=== PATIENT | male | born 1965 | race Caucasian/White ===

== ENCOUNTER 2021-09-14 14:19 | Outpatient (REF) | payer BC, SELFPAY ==
[2021-09-14 16:38] LABS: Urine Cytology See Pathology rpt
== END 2021-09-14 14:20 | disposition home or self-care (01) ==
LOC: HO.LAB 14:19
DX: R31.9 Hematuria, unspecified (principal)
CPT/HCPCS: 88112

== ENCOUNTER → 2021-11-05 08:38 | Outpatient (BNVA) | payer OTHER, SELFPAY | PROVIDERS: PCP Internal Medicine; Visit Provider Physician Assistant | DX: S39.012A Strain of muscle, fascia and tendon of lower back, initial encounter (principal); S29.012A Strain of muscle and tendon of back wall of thorax, initial encounter; X50.0XXA Overexertion from strenuous movement or load, initial encounter | CPT/HCPCS: 99203 ==

== ENCOUNTER 2021-11-10 09:41 | Outpatient (REF) | payer BC, SELFPAY ==
--- NOTE | ~2021-11-10 | CT_ITS ---
EXAMINATION: CT ABDOMEN AND PELVIS WITHOUT AND WITH CONTRAST CLINICAL INFORMATION: Hematuria COMPARISON: None. TECHNIQUE: Noncontrast CT of the abdomen and pelvis is performed followed by split bolus contrast-enhanced images using 85 mL Omnipaque 350 contrast.? Postcontrast imaging is performed during the combined nephrogram and excretion phase. Sagittal and coronal reformatted images were obtained on the technologist's workstation for both the precontrast and postcontrast phases. This CT examination was performed using dose optimization techniques as appropriate, variously including the following: *Automated exposure control *Adjustment of mA and/or kV according to patient size (this includes techniques or standardized protocols for targeted exams where dose is matched to indication/reason for exam; i.e. extremities or head) *Use of iterative reconstruction technique DLP: 669 mGy-cm FINDINGS: LUNG BASES: The visualized lung bases are unremarkable. LIVER, GALLBLADDER, AND BILIARY TREE: The liver is low in attenuation suggestive of fatty infiltration. There is a 1 cm cyst in the right lobe of the liver near the caudate lobe axial image 22 series 8. There is a low-attenuation lesion in the lateral segment of the left lobe of the liver. This has peripheral puddling appearing enhancement on delayed urogram imaging and probably represents a hemangioma. This measures 1.3 cm axial image 15 series 8. The gallbladder is normal. There is no biliary duct dilatation. PANCREAS: Unremarkable. SPLEEN: Unremarkable. ADRENAL GLANDS: Unremarkable. KIDNEYS AND URETERS: The kidneys are normal in size, shape, and attenuation. No hydronephrosis, hydroureter, or calculi seen. The collecting systems and ureters are normal. No perinephric stranding. BLADDER: The bladder is normal. GASTROINTESTINAL TRACT: There is mild diverticulosis of the colon. The small and large bowel are otherwise unremarkable. The appendix is unremarkable. ABDOMINAL WALL: There is a small umbilical hernia containing fat. LYMPH NODES: There is shotty small bowel mesentery lymphadenopathy and fat stranding or yovany mesentery sign. This is a nonspecific finding. VASCULAR: Unremarkable. PELVIC VISCERA: Prostate gland is slightly prominent measuring 3.3 x 5.2 cm in AP and transverse dimension. OSSEUS STRUCTURES: There are degenerative changes of the hip joints and spine. There are T10 and L2 vertebral body hemangiomas. CT/CT urogram IMPRESSION: No cause of hematuria seen. Slightly enlarged prostate gland. Mild diverticulosis of the colon. Nonspecific small bowel yovany mesentery. Fatty infiltration of the liver, liver cyst and probable hemangioma.
[2021-11-10 11:12] LABS: Blood Urea Nitrogen 12 mg/dL (9-16); Estimated Glomerular Filt Rate > 60
[2021-11-10] MEDS: iohexoL 350 MG/ML 100 ML INFUS..BTL IV (12:02)
== END 2021-11-10 09:42 | disposition home or self-care (01) ==
LOC: HO.CT 09:41
PROVIDERS: PCP Internal Medicine
DX: R31.9 Hematuria, unspecified (principal)
CPT/HCPCS: 36415; 74178; 82565; 84520; Q9967

== ENCOUNTER → 2021-11-25 15:29 | Outpatient (BNVA) | payer OTHER, SELFPAY | PROVIDERS: PCP Internal Medicine; Visit Provider Physician Assistant | DX: S39.012A Strain of muscle, fascia and tendon of lower back, initial encounter (principal); S76.311A Strain of muscle, fascia and tendon of the posterior muscle group at thigh level, right thigh, initial encounter; X50.0XXA Overexertion from strenuous movement or load, initial encounter | CPT/HCPCS: 99214 ==

== ENCOUNTER → 2021-12-08 08:36 | Outpatient (BNVA) | payer OTHER, SELFPAY | PROVIDERS: PCP Internal Medicine; Visit Provider Internal Medicine | DX: S76.311D Strain of muscle, fascia and tendon of the posterior muscle group at thigh level, right thigh, subsequent encounter (principal); S39.012D Strain of muscle, fascia and tendon of lower back, subsequent encounter; X50.0XXD Overexertion from strenuous movement or load, subsequent encounter | CPT/HCPCS: 99213 ==

== ENCOUNTER → 2021-12-23 09:08 | Outpatient (BNVA) | payer OTHER, SELFPAY | PROVIDERS: PCP Internal Medicine; Visit Provider Physician Assistant | DX: S39.012D Strain of muscle, fascia and tendon of lower back, subsequent encounter (principal); S76.311D Strain of muscle, fascia and tendon of the posterior muscle group at thigh level, right thigh, subsequent encounter; X50.0XXD Overexertion from strenuous movement or load, subsequent encounter | CPT/HCPCS: 99213 ==

== ENCOUNTER → 2022-01-07 09:38 | Outpatient (BNVA) | payer OTHER, SELFPAY | PROVIDERS: PCP Internal Medicine; Visit Provider Physician Assistant | DX: S39.012D Strain of muscle, fascia and tendon of lower back, subsequent encounter (principal); S76.311D Strain of muscle, fascia and tendon of the posterior muscle group at thigh level, right thigh, subsequent encounter; X50.0XXD Overexertion from strenuous movement or load, subsequent encounter | CPT/HCPCS: 99213 ==

== ENCOUNTER → 2022-01-13 10:22 | Outpatient (BNVA) | payer OTHER, SELFPAY | PROVIDERS: PCP Internal Medicine; Visit Provider Physician Assistant | DX: S39.012D Strain of muscle, fascia and tendon of lower back, subsequent encounter (principal); S76.311D Strain of muscle, fascia and tendon of the posterior muscle group at thigh level, right thigh, subsequent encounter; X50.0XXD Overexertion from strenuous movement or load, subsequent encounter | CPT/HCPCS: 99213 ==

== ENCOUNTER 2022-01-18 07:18 | Outpatient (REF) | payer OTHER, SELFPAY ==
--- NOTE | ~2022-01-18 | MR_ITS ---
EXAMINATION: MR LUMBAR SPINE WITHOUT CONTRAST CLINICAL INFORMATION: Lifting injury, persistent pain COMPARISON: None TECHNIQUE: MRI of the lumbar spine was obtained using routine sequences without contrast. FINDINGS: Mild left convex curvature of the lumbar spine. No suspicious marrow signal or focal osseous lesion. L2 vertebral body hemangioma. The vertebral body heights are maintained. Disc desiccation and height loss at L5-S1.. The conus medullaris terminates at the level of L1-L2. The distal spinal cord is normal in appearance. The cauda equina nerve roots appear normal. No significant abnormalities of the paraspinal musculature.. Limited evaluation of the intra-abdominal structures without significant abnormalities. The abdominal aorta is of normal contour and caliber. Degenerative changes of the partially visualized sacroiliac joints, left greater than right. SPINAL LEVELS: T12-L1: No significant spinal canal or neural foraminal narrowing L1-L2: No significant spinal canal or neuroforaminal narrowing. L2-L3: No significant spinal canal or neuroforaminal narrowing. L3-L4: No significant spinal canal or neuroforaminal narrowing. Shallow disc bulge and mild facet arthropathy. L4-L5: No significant spinal canal or neuroforaminal narrowing. Shallow disc bulge and mild facet arthropathy. L5-S1: Central disc protrusion with annular fissure narrows the bilateral subarticular zones with likely mass effect on the traversing S1 nerve roots. Mild facet arthropathy. No significant spinal canal or neural foraminal narrowing MR/MR lumbar spine wo con IMPRESSION: 1. At L5-S1, there is a central disc protrusion with annular fissure which narrows the subarticular zones and likely exerts mass effect on the traversing S1 nerve roots. 2. Otherwise minimal degenerative changes of the lumbar spine at L3-L4 and L4-L5.
== END 2022-01-18 07:19 | disposition home or self-care (01) ==
LOC: HO.MRI 07:18
PROVIDERS: Visit Provider Internal Medicine
DX: M54.50 Low back pain, unspecified (principal)
CPT/HCPCS: 72148

== ENCOUNTER → 2022-01-18 08:23 | Outpatient (BNVA) | payer OTHER, SELFPAY | PROVIDERS: PCP Internal Medicine; Visit Provider Internal Medicine | DX: M54.50 Low back pain, unspecified (principal); R20.2 Paresthesia of skin | CPT/HCPCS: 99213 ==

== ENCOUNTER → 2022-01-27 09:55 | Outpatient (BNVA) | payer OTHER, SELFPAY | PROVIDERS: PCP Internal Medicine; Visit Provider Physician Assistant | DX: S39.012D Strain of muscle, fascia and tendon of lower back, subsequent encounter (principal); X50.0XXD Overexertion from strenuous movement or load, subsequent encounter; M53.87 Other specified dorsopathies, lumbosacral region | CPT/HCPCS: 99214 ==

== ENCOUNTER → 2022-02-03 10:01 | Outpatient (BNVA) | payer OTHER, SELFPAY | PROVIDERS: PCP Internal Medicine; Visit Provider Physician Assistant | DX: S39.012D Strain of muscle, fascia and tendon of lower back, subsequent encounter (principal); S76.011D Strain of muscle, fascia and tendon of right hip, subsequent encounter; S29.012D Strain of muscle and tendon of back wall of thorax, subsequent encounter; X58.XXXD Exposure to other specified factors, subsequent encounter | CPT/HCPCS: 99213 ==

== ENCOUNTER → 2022-02-17 09:25 | Outpatient (BNVA) | payer OTHER, SELFPAY | PROVIDERS: PCP Internal Medicine; Visit Provider Physician Assistant | DX: S39.012D Strain of muscle, fascia and tendon of lower back, subsequent encounter (principal); S76.311D Strain of muscle, fascia and tendon of the posterior muscle group at thigh level, right thigh, subsequent encounter; X50.0XXD Overexertion from strenuous movement or load, subsequent encounter | CPT/HCPCS: 99214 ==

== ENCOUNTER → 2022-02-25 09:21 | Outpatient (BNVA) | payer OTHER, SELFPAY | PROVIDERS: PCP Internal Medicine; Visit Provider Physician Assistant | DX: S39.012D Strain of muscle, fascia and tendon of lower back, subsequent encounter (principal); S29.012D Strain of muscle and tendon of back wall of thorax, subsequent encounter; X50.0XXD Overexertion from strenuous movement or load, subsequent encounter | CPT/HCPCS: 99214 ==

== ENCOUNTER → 2022-03-11 11:43 | Outpatient (BNVA) | payer OTHER, SELFPAY | PROVIDERS: PCP Internal Medicine; Visit Provider Physician Assistant | DX: M54.50 Low back pain, unspecified (principal); M54.17 Radiculopathy, lumbosacral region | CPT/HCPCS: 99213 ==

== ENCOUNTER → 2022-03-25 14:56 | Outpatient (BNVA) | payer OTHER, SELFPAY | PROVIDERS: PCP Internal Medicine; Visit Provider Nurse Practitioner Family | DX: M54.16 Radiculopathy, lumbar region (principal); M51.36 Other intervertebral disc degeneration, lumbar region; M51.27 Other intervertebral disc displacement, lumbosacral region; M47.816 Spondylosis without myelopathy or radiculopathy, lumbar region; M62.830 Muscle spasm of back; M25.551 Pain in right hip | CPT/HCPCS: 99202 ==

== ENCOUNTER 2022-03-26 13:08 | Outpatient (REF) | payer OTHER, SELFPAY ==
--- NOTE | ~2022-03-26 | XR_ITS ---
EXAMINATION: XR HIP, RIGHT CLINICAL INFORMATION: Pain in the right hip. COMPARISON: CT urogram 11/10/2021. TECHNIQUE: Two views of the right hip. FINDINGS: No evidence of fractures or subluxation. SI joints are symmetric. Pubic symphysis is maintained. 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 Pelvic phleboliths. No significant soft tissue abnormality. XR/XR hip RT w PEL1V IMPRESSION: 1. No acute fractures or subluxation. 2. 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
[2022-03-26 16:07] LABS: Anion Gap 15 (12-20); Blood Urea Nitrogen 11 mg/dL (9-16); Carbon Dioxide 27 mmol/L (22-29); Chloride 103 mmol/L (96-108); Estimated Glomerular Filt Rate > 60; Potassium 4.6 mmol/L (3.3-5.1); Sodium 140 mmol/L (135-145)
== END 2022-03-26 13:09 | disposition home or self-care (01) ==
LOC: HO.XRAY 13:08
PROVIDERS: PCP Internal Medicine; Visit Provider Nurse Practitioner Family
DX: Z01.818 Encounter for other preprocedural examination (principal); M25.551 Pain in right hip
CPT/HCPCS: 36415; 73502; 80051; 82565; 84520

== ENCOUNTER → 2022-04-02 09:02 | Outpatient (BNVA) | payer OTHER, SELFPAY | PROVIDERS: PCP Internal Medicine; Visit Provider Physician Assistant | DX: M54.50 Low back pain, unspecified (principal); M54.9 Dorsalgia, unspecified; M54.17 Radiculopathy, lumbosacral region | CPT/HCPCS: 99214 ==

== ENCOUNTER 2022-04-21 06:05 | Outpatient (REF) | payer OTHER, SELFPAY ==
--- NOTE | ~2022-04-21 | FL_ITS ---
EXAMINATION: XR FLUOROSCOPY WITH IMAGES CLINICAL INFORMATION: Radiculopathy lumbar region. COMPARISON: MRI lumbar spine of 01/18/2022. TECHNIQUE: Fluoroscopy Supervised By: Dr. Breezy Holguin. Fluoroscopy Time: 0.7 minutes. Cumulative Dose: 13 mGy. DAP: 1.68 Gycm2. Images: 4. FINDINGS: Images demonstrate needles placed just below the pedicles of L5 bilaterally with contrast in nerve sheath. FL/FL guidance in treatment room IMPRESSION: Intraoperative fluoroscopy for pain management procedure.
== END 2022-04-21 06:06 | disposition home or self-care (01) ==
LOC: CF 06:05
PROVIDERS: Visit Provider Internal Medicine
DX: M54.16 Radiculopathy, lumbar region (principal); M51.36 Other intervertebral disc degeneration, lumbar region
CPT/HCPCS: 64483; J1100

== ENCOUNTER → 2022-04-30 13:09 | Outpatient (BNVA) | payer OTHER, SELFPAY | PROVIDERS: PCP Internal Medicine; Visit Provider Physician Assistant | DX: M54.9 Dorsalgia, unspecified (principal); M54.50 Low back pain, unspecified; M54.17 Radiculopathy, lumbosacral region | CPT/HCPCS: 99213 ==

== ENCOUNTER → 2022-05-07 14:36 | Outpatient (BNVA) | payer OTHER, SELFPAY | PROVIDERS: PCP Internal Medicine; Visit Provider Nurse Practitioner Family | DX: Z13.89 Encounter for screening for other disorder (principal) ==

== ENCOUNTER → 2022-05-24 08:15 | Outpatient (BNVA) | payer OTHER, BC, SELFPAY | PROVIDERS: PCP Internal Medicine; Visit Provider Nurse Practitioner Family | DX: M25.551 Pain in right hip (principal); M62.830 Muscle spasm of back; M47.816 Spondylosis without myelopathy or radiculopathy, lumbar region; M51.27 Other intervertebral disc displacement, lumbosacral region | CPT/HCPCS: 99212 ==

== ENCOUNTER → 2022-05-26 09:31 | Outpatient (BNVA) | payer OTHER, SELFPAY | PROVIDERS: PCP Internal Medicine; Visit Provider Physician Assistant | DX: M54.50 Low back pain, unspecified (principal); M54.2 Cervicalgia; M25.551 Pain in right hip | CPT/HCPCS: 99214 ==

== ENCOUNTER → 2022-06-02 11:17 | Outpatient (BNVA) | payer OTHER, SELFPAY | PROVIDERS: PCP Internal Medicine; Visit Provider Physician Assistant | DX: M54.50 Low back pain, unspecified (principal); M54.2 Cervicalgia; M25.551 Pain in right hip | CPT/HCPCS: 99214 ==

== ENCOUNTER → 2022-06-18 11:31 | Outpatient (BNVA) | payer BC, SELFPAY | PROVIDERS: PCP Internal Medicine; Visit Provider Urology | DX: Z13.89 Encounter for screening for other disorder (principal) ==

== ENCOUNTER 2022-06-21 14:02 | Outpatient (REF) | payer BC, SELFPAY ==
[2022-06-21 14:14] LABS: Appearance Urine Clear; Color Urine Yellow; Glucose Urine UA Negative (Negative); Leukocyte Esterase Urine Negative (Negative); Nitrite Urine Negative (Negative); Specific Gravity - Urine <= 1.005 (1.005-1.025); Urine Blood Negative (Negative); Urine Ketones Negative (Negative); Urine Protein Negative (Neg-Trace)
== END 2022-06-21 14:03 | disposition home or self-care (01) ==
LOC: HO.LNP 14:02
PROVIDERS: Visit Provider Urology
DX: R31.29 Other microscopic hematuria (principal)
CPT/HCPCS: 81003

== ENCOUNTER 2022-06-22 05:57 | Outpatient (REF) | payer BC, SELFPAY ==
--- NOTE | ~2022-06-22 | FL_ITS ---
EXAMINATION: XR FLUOROSCOPY WITH IMAGES CLINICAL INFORMATION: M25.551 - Pain in right hip COMPARISON: Pelvis and right hip radiographs 03/26/2022 TECHNIQUE: Fluoroscopy Supervised By: Dr. Derek Luis. Fluoroscopy Time: 12 seconds. Cumulative Dose: 5.86 mGy. Images: 1. FINDINGS: There is spinal needle with tip overlying the superior lateral right hip joint. Intracapsular contrast is demonstrated. No visible vascular communication. There are degenerative changes hip joint. FL/FL guidance in treatment room IMPRESSION: Fluoroscopy for pain management procedure.
== END 2022-06-22 05:58 | disposition home or self-care (01) ==
LOC: CF 05:57
PROVIDERS: Visit Provider Anesthesiology
DX: M25.551 Pain in right hip (principal); M62.830 Muscle spasm of back; M47.816 Spondylosis without myelopathy or radiculopathy, lumbar region; M51.27 Other intervertebral disc displacement, lumbosacral region
CPT/HCPCS: 20610; J2795; J3301; Q9967

== ENCOUNTER → 2022-06-25 08:58 | Outpatient (BNVA) | payer OTHER, SELFPAY | PROVIDERS: PCP Internal Medicine; Visit Provider Physician Assistant | DX: M54.50 Low back pain, unspecified (principal); M54.2 Cervicalgia; M25.551 Pain in right hip | CPT/HCPCS: 99214 ==

== ENCOUNTER → 2022-07-20 09:30 | Outpatient (BNVA) | payer OTHER, SELFPAY | PROVIDERS: PCP Internal Medicine; Visit Provider Nurse Practitioner Family | DX: M25.551 Pain in right hip (principal); M62.830 Muscle spasm of back; M47.816 Spondylosis without myelopathy or radiculopathy, lumbar region; M51.27 Other intervertebral disc displacement, lumbosacral region; M54.16 Radiculopathy, lumbar region; M53.3 Sacrococcygeal disorders, not elsewhere classified | CPT/HCPCS: 99212 ==

== ENCOUNTER → 2022-08-04 09:56 | Outpatient (BNVA) | payer OTHER, SELFPAY | PROVIDERS: PCP Internal Medicine; Visit Provider Physician Assistant | DX: M54.50 Low back pain, unspecified (principal); M54.2 Cervicalgia; M25.551 Pain in right hip | CPT/HCPCS: 99213 ==

== ENCOUNTER 2022-08-10 06:00 | Outpatient (REF) | payer OTHER, SELFPAY ==
--- NOTE | ~2022-08-10 | FL_ITS ---
EXAMINATION: XR FLUOROSCOPY WITH IMAGES CLINICAL INFORMATION: Sacrococcygeal disorders, not elsewhere classified COMPARISON: None available. TECHNIQUE: Fluoroscopy Supervised By: Dr. Derek Luis. Fluoroscopy Time: 0.1 min. Cumulative Dose: 1.28 mGy. DAP: 0.0222 Gycm2. Images: 1. FINDINGS: Image demonstrates needle placement and contrast injection of the right sacroiliac joint FL/FL guidance in treatment room IMPRESSION: Fluoroscopy guidance for right sacroiliac joint injection
== END 2022-08-10 06:01 | disposition home or self-care (01) ==
LOC: CF 06:00
PROVIDERS: Visit Provider Anesthesiology
DX: M53.3 Sacrococcygeal disorders, not elsewhere classified (principal); M47.816 Spondylosis without myelopathy or radiculopathy, lumbar region; M51.27 Other intervertebral disc displacement, lumbosacral region; M54.16 Radiculopathy, lumbar region; M62.830 Muscle spasm of back; M25.551 Pain in right hip
CPT/HCPCS: 27096

== ENCOUNTER → 2022-08-12 10:29 | Outpatient (BNVA) | payer OTHER, SELFPAY | PROVIDERS: PCP Internal Medicine; Visit Provider Nurse Practitioner Family | DX: M53.3 Sacrococcygeal disorders, not elsewhere classified (principal); M47.26 Other spondylosis with radiculopathy, lumbar region; M51.36 Other intervertebral disc degeneration, lumbar region; M51.27 Other intervertebral disc displacement, lumbosacral region; M62.830 Muscle spasm of back | CPT/HCPCS: 99212 ==

== ENCOUNTER → 2022-08-16 11:21 | Outpatient (BNVA) | payer OTHER, BC, SELFPAY | PROVIDERS: PCP Internal Medicine; Visit Provider Physician Assistant | DX: M54.16 Radiculopathy, lumbar region (principal) | CPT/HCPCS: 99202 ==

== ENCOUNTER 2022-08-25 16:20 | Outpatient (REF) | payer OTHER, BC, SELFPAY ==
--- NOTE | ~2022-08-25 | MR_ITS ---
EXAMINATION: MR LUMBAR SPINE WITHOUT CONTRAST CLINICAL INFORMATION: Lumbar radiculopathy. COMPARISON: Lumbar spine MRI 01/18/2022. TECHNIQUE: MRI of the lumbar spine was obtained using routine sequences without contrast. FINDINGS: There is slight grade 1 retrolisthesis of L5 on S1. Alignment is otherwise normal. Vertebral heights are preserved. No acute bone marrow signal changes. There is slight loss of intervertebral disc height and T2 signal intensity at L5-S1 related to disc degeneration. The tip of the conus medullaris is located at L1. No mass effect on the conus. Visualized distal cord signal intensity is normal. At L1-L2, L2-L3, L3-L4, and L4-5 the annular contours are normal. No canal or neuroforaminal compromise at these 4 levels. At L5-S1 there is a broad shallow central protrusion superimposed upon a bulging disc. No canal stenosis. No mass effect on the traversing or foraminal nerve roots. Limited visualization of the retroperitoneal anatomy reveals no abnormal finding. Psoas and paraspinal muscle groups are symmetric. MR/MR lumbar spine wo con IMPRESSION: There is a broad shallow central protrusion at L5-S1. Otherwise unremarkable examination. No canal stenosis. No mass effect on the traversing or foraminal nerve roots.
== END 2022-08-25 16:21 | disposition home or self-care (01) ==
LOC: HO.MRI 16:20
PROVIDERS: PCP Internal Medicine; Visit Provider Physician Assistant
DX: M54.16 Radiculopathy, lumbar region (principal)
CPT/HCPCS: 72148

== ENCOUNTER → 2022-09-09 15:15 | Outpatient (BNVA) | payer OTHER, SELFPAY | PROVIDERS: PCP Internal Medicine; Visit Provider Physician Assistant | DX: M54.50 Low back pain, unspecified (principal); M54.2 Cervicalgia; M25.551 Pain in right hip | CPT/HCPCS: 99213 ==

== ENCOUNTER 2022-10-05 15:35 | Outpatient (AMB) | payer OTHER, SELFPAY ==
--- NOTE | 2022-10-05 15:37 | MHC.OFFVIS ---
Intake Vital Signs 10/05/22 15:38 Height 6 ft 1 in Weight 196 lb BMI 25.9 BP 125/87 Blood Pressure Location Lt brachial Position Sitting Respiration 14 Pulse 83 Pulse Source Pulse Oximeter Pulse Oximetry (%) 98 Oxygen Delivery Method Room Air Intake Visit Reasons: Follow Up/Back Pain Allergies No Known Allergies Allergy (Verified 10/05/22 15:39) Medication List - Last Reconciled 10/05/22 by Melanie Lemos LPN atorvastatin 10 mg PO DAILY gabapentin 300 mg PO TID 30 days ibuprofen 800 mg PO TID HPI HPI Comments History of Present Illness Details Patient presents today for follow up for low back pain. He recently completed repeat lumbar spine MRI per [facility] and was deemed non surgical for back surgery. Patient reports ongoing right buttock pain worsened with prolonged sitting especially on hard surfaces and right leg pain in posterior and lateral distribution with intermittent numbness and tingling. He is trying to return to work but continues to experience daily pain that interferes with his ADLs, sleep and quality of life. Gabapentin has been well tolerated with partial and temporary alleviation of symptoms. Denies any bladder and bowel incontinence or saddle anesthesia. PRIOR: Patient presents today to assess response to Right Diagnostic Sacroiliac Joint Injection 08/10/[address] Luis. Patient reports 90% pain relief for the first 6 hours after procedure and ongoing 80% pain relief in the projection of right sacroiliac joint area. Patient reports he did not take gabapentin on the day of procedure. He felt some numbness down right leg, injection site tenderness, intermittent groin pain with sitting and tingling down left thigh. Patient also reports difficulty to sleep on his right side after injection as well as ongoing radicular right leg pain. Patient also reports tingling in his scrotal and distal and proximal adjacent areas. He denies any recent injury, inflammation, trauma or falls. Patient reports he regularly sees Urology provider, Dr. Grubbs but has not mention tingling in his scrotal areas. Patient is seeing Dr. Morales next Tuesday for evaluation of central disc protrusion with annular fissure at L5-S1 which narrows the subarticular zones and likely exerts mass effect on the traversing S1 nerve roots. Denies any fever, abdominal pain, bladder and bowel incontinence or saddle anesthesia. Past Procedures: 08/10/22: Right Diagnostic SIJ injection-90% for 6 hours, 80% ongoing pain relief 06/22/22: Right Hip Intra-articular steroid injection-80% ongoing pain relief 04/21/22: Bilateral L5-S1 TFESI-95% pain relief for first 24 hours, 70% 2 weeks PRIOR: Patient is a pleasant 57 years old male who presents today with lower back pain related to lifting injury on 11/03/21 by lifting a heavy rolled up mat. This is a work related injury and this is a Workers Comp case. 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 Patient has been initially evaluated at [facility] for upper back strain and completed 17 sessions of physical therapy with temporary improvement while performing PT. Patient reports his flexibility and partial range of motion has improved with PT but pain is still present and affects his daily activities, walking, standing, prolonged sitting, bending and sleeping. Patient reports worsening pain with sitting and sleeping for the past 2 weeks. His back is axial and also radiates into his right buttock and right lower extremity posteriorly with right leg and calf tightness, numbness and tingling in his toes. Reports same radiation of pain on the left intermittently in the past 2 weeks. Patient also reports right hip pain that radiates into his right groin. Pain is described as daily intermittent shooting, sharp, tugging, pulling, warming, tingling, dull, sore, hurting, aching, tiring, exhausting, fearful, frightful, punishing, spreading, radiating, tight and squeezing. Patient has been taking Ibuprofen 800 mg tid prn for 5 months since injury for pain. He also received oral steroids and cyclobenzaprine which has elevated some muscle stiffness in his legs. Patient denies previous back surgery or injections. Reports cervical surgery by Dr. Low in 2014, he believes C6-C7 level. Lumbar spine MRI on 01/18/22 showed a central disc protrusion with annular fissure at L5-S1 which narrows the subarticular zones and likely exerts mass effect on the traversing S1 nerve roots. Otherwise minimal degenerative changes of the lumbar spine at L3-L4 and L4-L5. Patient denies any fever, chills, weight loss, abdominal pain, bladder or bowel incontinence or saddle anesthesia. Reports right lower extremity weakness. [facility] Medical History Hematuria of unknown etiology Review of Systems Const All systems reviewed & are unremarkable except as noted in HPI and below Physical Exam Vital Signs: Last Vital Signs Pulse 83 10/05/22 15:38 Resp 14 10/05/22 15:38 BP 125/87 10/05/22 15:38 Pulse Ox 98 10/05/22 15:38 Oxygen Delivery Method Room Air 10/05/22 15:38 BMI result Body Mass Index 25.9 General: Appears afebrile. Alert and oriented. Mood and affect appropriate. Follows and participates in conversation appropriately. Respiratory effort is unlabored. No cough. Able to transition from sit to stand unassisted. Back/Spine/Pelvis Other: Lumbar extension does not reproduce pain. Lumbar flexion and bending reproduce mild to moderate discomfort. Demonstrates 5/5 strength of quadriceps bilaterally as well as flexion/dorsiflexion of bilateral feet against resistance. 2+ pedal pulses bilaterally. Straight leg rise with dorsiflexion positive on the right. +1 right +2 left patellar and +1 achilles reflexes bilaterally. Facet loading test positive bilaterally. No groin pain with I/E hip rotations on the right and radiation of pain into right anterior and lateral thigh. Mild lateral hip pain with external hip rotation on the left. Reports pain with numbness and tingling right buttock and hip. Back: back tenderness Cervical Spine: cervical ROM normal and No Cervical spine tenderness Thoracic/Lumbar Spine: thoracic and lumbar spine normal to inspection, No Thoracic/lumbar spine scar(s), Lasegue's sign positive on the right and localized, pain with thoraco-lumbar ROM, paraspinal muscle tenderness on the right greater than left, thoraco-lumbar ROM limited, No thoracic spinal tenderness and lumbar spinal tenderness (L4-S1) Pelvis: buttock tenderness on the right and sciatic notch tenderness on the right Sacroiliac joints: on the right (+Sahil's test) tender to palpation and on the left nontender Results Reviewed Results Reviewed: MR LUMBAR SPINE WITHOUT CONTRAST 08/25/22 COMPARISON: Lumbar spine MRI 01/18/2022 FINDINGS: There is slight grade 1 retrolisthesis of L5 on S1. Alignment is otherwise normal. Vertebral heights are preserved. No acute bone marrow signal changes. There is slight loss of intervertebral disc height and T2 signal intensity at L5-S1 related to disc degeneration. The tip of the conus medullaris is located at L1. No mass effect on the conus. Visualized distal cord signal intensity is normal. At L1-L2, L2-L3, L3-L4, and L4-5 the annular contours are normal. No canal or neuroforaminal compromise at these 4 levels. At L5-S1 there is a broad shallow central protrusion superimposed upon a bulging disc. No canal stenosis. No mass effect on the traversing or foraminal nerve roots. Limited visualization of the retroperitoneal anatomy reveals no abnormal finding. Psoas and paraspinal muscle groups are symmetric. IMPRESSION: There is a broad shallow central protrusion at L5-S1. Otherwise unremarkable examination. No canal stenosis. No mass effect on the traversing or foraminal nerve roots. MR LUMBAR SPINE WITHOUT CONTRAST 01/18/22 CLINICAL INFORMATION: Lifting injury, persistent pain FINDINGS: Mild left convex curvature of the lumbar spine. No suspicious marrow signal or focal osseous lesion. L2 vertebral body hemangioma. The vertebral body heights are maintained. Disc desiccation and height loss at L5-S1.. The conus medullaris terminates at the level of L1-L2. The distal spinal cord is normal in appearance. The cauda equina nerve roots appear normal. No significant abnormalities of the paraspinal musculature.. Limited evaluation of the intra-abdominal structures without significant abnormalities. The abdominal aorta is of normal contour and caliber. Degenerative changes of the partially visualized sacroiliac joints, left greater than right. SPINAL LEVELS: T12-L1: No significant spinal canal or neural foraminal narrowing L1-L2: No significant spinal canal or neuroforaminal narrowing. L2-L3: No significant spinal canal or neuroforaminal narrowing. L3-L4: No significant spinal canal or neuroforaminal narrowing. Shallow disc bulge and mild facet arthropathy. L4-L5: No significant spinal canal or neuroforaminal narrowing. Shallow disc bulge and mild facet arthropathy. L5-S1: Central disc protrusion with annular fissure narrows the bilateral subarticular zones with likely mass effect on the traversing S1 nerve roots. Mild facet arthropathy. No significant spinal canal or neural foraminal narrowing IMPRESSION: 1. At L5-S1, there is a central disc protrusion with annular fissure which narrows the subarticular zones and likely exerts mass effect on the traversing S1 nerve roots. 2. Otherwise minimal degenerative changes of the lumbar spine at L3-L4 and L4-L5. XR HIP, RIGHT 03/26/22 CLINICAL INFORMATION: Pain in the right hip. FINDINGS: No evidence of fractures or subluxation. SI joints are symmetric. Pubic symphysis is maintained. 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 Pelvic phleboliths. No significant soft tissue abnormality. IMPRESSION: 1. No acute fractures or subluxation. 2. 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 Assessment & Plan Assessment & Plan (1) Muscle spasm of back: Code(s): M62.830 - Muscle spasm of back (2) Lumbar spondylosis: Code(s): M47.816 - Spondylosis without myelopathy or radiculopathy, lumbar region (3) Protrusion of intervertebral disc of lumbosacral region: Code(s): M51.27 - Other intervertebral disc displacement, lumbosacral region (4) Lumbar radiculopathy: Code(s): M54.16 - Radiculopathy, lumbar region (5) Sacroiliac joint pain: Code(s): M53.3 - Sacrococcygeal disorders, not elsewhere classified (6) Piriformis muscle pain: Code(s): M79.18 - Myalgia, other site Plan Schedule Diagnostic Right Piriformis Muscle Injection with local and fluoroscopy for ongoing right buttock and right hip pain with associated numbness and tingling. Reports right buttock pain while sitting on hard surfaces. Right leg pain radiation is also posterior and lateral into his right foot. If no relief, will consider Right L5-S1 TFESI. All questions and concerns have been answered and patient agreed with the plan. Follow up after injections and sooner if needed. Justification for interventional therapy: ? Patient with average pain > 6/10 ? Patient has exhausted conservative therapy, NSAIDs, physical therapy The risks, consequences, alternatives, and benefits of various treatment options were discussed with the patient in great detail, including conservative management, injections and procedures. Coding Level of Care Code Est Pt Level 4 (78049) Diagnoses Muscle spasm of back M62.830 Lumbar spondylosis M47.816 Protrusion of intervertebral disc of lumbosacral region M51.27 Lumbar radiculopathy M54.16 Sacroiliac joint pain M53.3 Piriformis muscle pain M79.18
[2022-10-05 15:38] VITALS: BP 125/87; PULSE 83; RESP 14; O2SAT 98; BMI 25.9
== END 2022-10-05 15:59 | disposition home or self-care (01) ==
PROVIDERS: PCP Internal Medicine; Visit Provider Nurse Practitioner Family
DX: M62.830 Muscle spasm of back (principal); M47.816 Spondylosis without myelopathy or radiculopathy, lumbar region; M51.27 Other intervertebral disc displacement, lumbosacral region; M54.16 Radiculopathy, lumbar region; M53.3 Sacrococcygeal disorders, not elsewhere classified; M79.18 Myalgia, other site
CPT/HCPCS: 99214

== ENCOUNTER → 2022-10-05 15:35 | Outpatient (BNVA) | payer OTHER, SELFPAY | PROVIDERS: PCP Internal Medicine; Visit Provider Nurse Practitioner Family | DX: M47.26 Other spondylosis with radiculopathy, lumbar region (principal); M51.27 Other intervertebral disc displacement, lumbosacral region; M53.3 Sacrococcygeal disorders, not elsewhere classified; M62.830 Muscle spasm of back | CPT/HCPCS: 99212 ==

== ENCOUNTER 2022-10-21 13:51 | Outpatient (AMB) | payer OTHER, SELFPAY ==
--- NOTE | 2022-10-21 14:03 | A.OFFVIS_ITS ---
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 He reports increased back pain with right leg and right calf pain with intermittent numbn ess and tingling. Prolonged sitting, standing and walking will increase his symptoms. Patient has been using heat therapy, activity modifications, resting, gabapentin and took time off from work since Tuesday. He states his right buttock felt like he was sitting on a wallet but he was not. Prolonged sitting continues to causes him significant discomfort as well as bending or lifting small objects. Right leg pain radiation is posterior and lateral into his right foot. Patient reports oral steroid medication in the past has alleviated his symptoms and he requests refill for this. His piriformis injection was not approved by insurance. We will proceed with Right L5-S1 TFESI to alleviate his symptoms. Denies any recent cough, cold, infection, fever or other significant changes in medical history since last office visit. Patient denies any bladder or bowel incontinence or saddle anesthesia. Pain is rated at 3-4/10 at rest and increased to 6-7/10 with activity and movements. PRIOR: Patient presents today for follow up for low back pain. He recently completed repeat lumbar spine MRI per [facility] and was deemed non surgical for back surgery. Patient reports ongoing right buttock pain worsened with prolonged sitting especially on hard surfaces and right leg pain in posterior and lateral distribution with intermittent numbness and tingling. He is trying to return to work but continues to experience daily pain that interferes with his ADLs, sleep and quality of life. Gabapentin has been well tolerated with partial and temporary alleviation of symptoms. Denies any bladder and bowel incontinence or saddle anesthesia. PRIOR: Patient presents today to assess response to Right Diagnostic Sacroiliac Joint Injection 08/10/[address] Luis. Patient reports 90% pain relief for the first 6 hours after procedure and ongoing 80% pain relief in the projection of right sacroiliac joint area. Patient reports he did not take gabapentin on the day of procedure. He felt some numbness down right leg, injection site tenderness, intermittent groin pain with sitting and tingling down left thigh. Patient also reports difficulty to sleep on his right side after injection as well as ongoing radicular right leg pain. Patient also reports tingling in his scrotal and distal and proximal adjacent areas. He denies any recent injury, inflammation, trauma or falls. Patient reports he regularly sees Urology provider, Dr. Grubbs but has not mention tingling in his scrotal areas. Patient is seeing Dr. Morales next Tuesday for evaluation of central disc protrusion with annular fissure at L5-S1 which narrows the subarticular zones and likely exerts mass effect on the traversing S1 nerve roots. Denies any fever, abdominal pain, bladder and bowel incontinence or saddle anesthesia. Past Procedures: 08/10/22: Right Diagnostic SIJ injection-90% for 6 hours, 80% ongoing pain relief 06/22/22: Right Hip Intra-articular steroid injection-80% ongoing pain relief 04/21/22: Bilateral L5-S1 TFESI-95% pain relief for first 24 hours, 70% 2 weeks PRIOR: Patient is a pleasant 57 years old male who presents today with lower back pain related to lifting injury on 11/03/21 by lifting a heavy rolled up mat. This is a work related injury and this is a Workers Comp case. 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 Patient has been initially evaluated at [facility] for upper back strain and completed 17 sessions of physical therapy with temporary improvement while performing PT. Patient reports his flexibility and partial range of motion has improved with PT but pain is still present and affects his daily activities, walking, standing, prolonged sitting, bending and sleeping. Patient reports worsening pain with sitting and sleeping for the past 2 weeks. His back is axial and also radiates into his right buttock and right lower extremity posteriorly with right leg and calf tightness, numbness and tingling in his toes. Reports same radiation of pain on the left intermittently in the past 2 weeks. Patient also reports right hip pain that radiates into his right groin. Pain is described as daily intermittent shooting, sharp, tugging, pulling, warming, tingling, dull, sore, hurting, aching, tiring, exhausting, fearful, frightful, punishing, spreading, radiating, tight and squeezing. Patient has been taking Ibuprofen 800 mg tid prn for 5 months since injury for pain. He also received oral steroids and cyclobenzaprine which has elevated some muscle stiffness in his legs. Patient denies previous back surgery or injections. Reports cervical surgery by Dr. Low in 2013, he believes C6-C7 level. Lumbar spine MRI on 01/18/22 showed a central disc protrusion with annular fissure at L5-S1 which narrows the subarticular zones and likely exerts mass effect on the traversing S1 nerve roots. Otherwise minimal degenerative changes of the lumbar spine at L3-L4 and L4-L5. Patient denies any fever, chills, weight loss, abdominal pain, bladder or bowel incontinence or saddle anesthesia. Reports right lower extremity weakness. [facility] Medical History Hematuria of unknown etiology Review of Systems Const All systems reviewed & are unremarkable except as noted in HPI and below Physical Exam Vital Signs: Last Vital Signs Pulse 77 10/21/22 14:09 BP 135/93 H 10/21/22 14:09 Pulse Ox 99 10/21/22 14:09 Oxygen Delivery Method Room Air 10/21/22 14:09 BMI result Body Mass Index 25.2 General: Appears afebrile. Alert and oriented. Mood and affect appropriate. Fully engaged with exam. Follows and participates in conversation appropriately. Respiratory effort is unlabored. Able to transition from sit to stand unassisted. Back/Spine/Pelvis Other: Lumbar extension does reproduce mild pain. Lumbar flexion and bending reproduce moderate discomfort. Demonstrates 5/5 strength of quadriceps bilaterally as well as flexion/dorsiflexion of bilateral feet against resistance. 2+ pedal pulses bilaterally. Straight leg rise with dorsiflexion positive on the right, worse with dorsiflexion. +1 right +2 left patellar and +1 achilles reflexes bilaterally. Facet loading test positive bilaterally. No groin pain with I/E hip rotations on the right and radiation of pain into right anterior and lateral thigh. Slight lateral hip pain with external hip rotation on the left. Back: back tenderness Cervical Spine: cervical ROM normal, No Cervical spine tenderness and No step off deformity Thoracic/Lumbar Spine: thoracic and lumbar spine normal to inspection, No Thoracic/lumbar spine scar(s), Lasegue's sign positive on the right and localized, pain with thoraco-lumbar ROM, paraspinal muscle tenderness on the right greater than left, thoraco-lumbar ROM limited, No thoracic spinal tenderness, lumbar spinal tenderness (L4-S1) and straight leg raise positive right at 40 degrees Pelvis: buttock tenderness on the right and sciatic notch tenderness on the right Sacroiliac joints: on the right (+Sahil's test) tender to palpation and on the left nontender Assessment & Plan Assessment & Plan (1) Muscle spasm of back: Code(s): M62.830 - Muscle spasm of back (2) Lumbar spondylosis: Code(s): M47.816 - Spondylosis without myelopathy or radiculopathy, lumbar region (3) Protrusion of intervertebral disc of lumbosacral region: Code(s): M51.27 - Other intervertebral disc displacement, lumbosacral region (4) Lumbar radiculopathy: Code(s): M54.16 - Radiculopathy, lumbar region (5) Sacroiliac joint pain: Code(s): M53.3 - Sacrococcygeal disorders, not elsewhere classified (6) Piriformis muscle pain: Code(s): M79.18 - Myalgia, other site Plan Schedule Right L5-S1 TFESI injection with local and fluoroscopy for ongoing right sided radicular back and right leg pain. Script for Medrol John and muscle relaxant provided at patient's request while he awaits approval from insurance. All questions and concerns have been answered and patient agreed with the plan. Follow up after injections and sooner if needed. Justification for interventional therapy: ? Patient with average pain > 6/10 ? Patient has exhausted conservative therapy, NSAIDs, physical therapy The risks, consequences, alternatives, and benefits of various treatment options were discussed with the patient in great detail, including conservative management, injections and procedures. Patient was informed for hyperglycemic effects of steroids. Medications: New methylprednisolone (Medrol (John)) PO PER PKG DIR 21 ea 0RF cyclobenzaprine 5 mg PO BEDTIME 30 days PRN 30 tabs 0RF muscle spasm M25.551 - Pain in right hip, M47.816 - Spondylosis without myelopathy or radiculopathy, l umbar region, M51.27 - Other intervertebral disc displacement, lumbosacral region, M54.16 - Radiculopathy, lumbar region Coding Level of Care Code Est Pt Level 4 (03793) Diagnoses Muscle spasm of back M62.830 Lumbar spondylosis M47.816 Protrusion of intervertebral disc of lumbosacral region M51.27 Lumbar radiculopathy M54.16 Sacroiliac joint pain M53.3 Piriformis muscle pain M79.18
[2022-10-21 14:09] VITALS: BP 135/93; PULSE 77; O2SAT 99; BMI 25.2
== END 2022-10-21 14:42 | disposition home or self-care (01) ==
PROVIDERS: PCP Internal Medicine; Visit Provider Nurse Practitioner Family
DX: M62.830 Muscle spasm of back (principal); M47.816 Spondylosis without myelopathy or radiculopathy, lumbar region; M51.27 Other intervertebral disc displacement, lumbosacral region; M54.16 Radiculopathy, lumbar region; M53.3 Sacrococcygeal disorders, not elsewhere classified; M79.18 Myalgia, other site
CPT/HCPCS: 99214

== ENCOUNTER → 2022-10-21 13:51 | Outpatient (BNVA) | payer OTHER, SELFPAY | PROVIDERS: PCP Internal Medicine; Visit Provider Nurse Practitioner Family | DX: M62.830 Muscle spasm of back (principal); M47.26 Other spondylosis with radiculopathy, lumbar region; M51.27 Other intervertebral disc displacement, lumbosacral region; M53.3 Sacrococcygeal disorders, not elsewhere classified; M79.18 Myalgia, other site | CPT/HCPCS: 99212 ==

== ENCOUNTER → 2022-10-21 14:53 | Outpatient (BNVA) | payer OTHER, SELFPAY | PROVIDERS: PCP Internal Medicine; Visit Provider Internal Medicine | DX: M54.50 Low back pain, unspecified (principal) | CPT/HCPCS: 99213 ==

== ENCOUNTER 2022-11-16 06:15 | Outpatient (REF) | payer OTHER, SELFPAY ==
--- NOTE | ~2022-11-16 | FL_ITS ---
EXAMINATION: XR FLUOROSCOPY WITH IMAGES CLINICAL INFORMATION: Radiculopathy, lumbar region, right side. COMPARISON: None available. TECHNIQUE: Fluoroscopy Supervised By: Dr. Derek Luis. Fluoroscopy Time: 0.3 minutes. Cumulative Dose: 3.34 mGy. DAP: 0.0580 Gycm2. Images: 1. FINDINGS: Image demonstrates needle placement and contrast injection adjacent to the right lateral L5 vertebrae FL/FL guidance in treatment room IMPRESSION: Fluoroscopy guidance for pain management procedure
== END 2022-11-16 06:16 | disposition home or self-care (01) ==
LOC: CF 06:15
PROVIDERS: Visit Provider Anesthesiology
DX: M54.16 Radiculopathy, lumbar region (principal); M47.816 Spondylosis without myelopathy or radiculopathy, lumbar region
CPT/HCPCS: 64483; J3301

== ENCOUNTER 2022-11-16 10:27 | Outpatient (AMB) | payer OTHER, SELFPAY ==
[2022-11-16 10:42] VITALS: BP 122/88; PULSE 81; RESP 14; O2SAT 98; BMI 25.2
--- NOTE | 2022-11-16 10:42 | A.OFFVIS_ITS ---
Intake Vital Signs 11/16/22 10:42 11/16/22 11:28 Height 6 ft 1 in 6 ft 1 in Weight 191 lb 191 lb BMI 25.2 25.2 BP 122/88 120/90 H Blood Pressure Location Lt brachial Rt brachial Position Sitting Sitting Respiration 14 14 Pulse 81 73 Pulse Source Pulse Oximeter Pulse Oximeter Pulse Oximetry (%) 98 98 Oxygen Delivery Method Room Air Room Air Comment pre-op post-op Intake Visit Reasons: R L5-S1 TFESI/LOCAL Allergies No Known Allergies Allergy (Verified 11/16/22 10:42) [facility] Medical History Hematuria of unknown etiology Physical Exam Vital Signs: Last Vital Signs Pulse 73 11/16/22 11:28 Resp 14 11/16/22 11:28 BP 120/90 H 11/16/22 11:28 Pulse Ox 98 11/16/22 11:28 Oxygen Delivery Method Room Air 11/16/22 11:28 BMI result Body Mass Index 25.2 Assessment & Plan Assessment & Plan (1) Muscle spasm of back: Code(s): M62.830 - Muscle spasm of back (2) Lumbar spondylosis: Code(s): M47.816 - Spondylosis without myelopathy or radiculopathy, lumbar region (3) Protrusion of intervertebral disc of lumbosacral region: Code(s): M51.27 - Other intervertebral disc displacement, lumbosacral region (4) Lumbar radiculopathy: Code(s): M54.16 - Radiculopathy, lumbar region Plan: Right L5- S1 Transforaminal epidural steroid injection Informed consent was thoroughly explained to the patient before the procedure. The patient came to the operating room. She was positioned prone on operating table with a pillow under her abdomen. Time-out was performed delineating correct site and side of the procedure, nature of the injection, name and date of of the patient. The lower back of the patient was prepped with ChloraPrep and draped with st erile utility towels. C-arm was brought over the operating field and sq picture of L5 vertebra was demonstrated on the screen. The right side was chosen as the side of the injection. Tilting machine ipsilateral to the right at the level of L5 the most prominent picture of the right S1 superior articular process was obtained on the screen. At the projection of the lateral border of the SAP S1 to the skin small amount of lidocaine 1% 3-4 cc was injected to anesthetize the skin and s/q tissues. After that 5 in 22 gauge Quincke point needle was inserted through the skin wheal and was advanced to were the L5-S1 foramina on anterior posterior and oblique views intermittently.When needle tip contacted the bone the needle was deviated laterally and after that medially to advance it below the SAP and into the L5- S1 foramina. On lateral view the needle appeared to be at the lateral superior portion of the foramina. When tip of the needle entered foramina projection on AP view injection of the contrast was performed demonstrating epidural and perineural spread of the contrast. After that injection of the treatment medicine 2 cc of preservative-free lidocaine 1% mixed with Kenalog 40 mg was injected into the foramina. Injection of the contrast and injection of the treatment medicine was observed live on the screen. No intrathecal and no intravascular spread of the contrast was noted. The needle was removed and bandaid was applied the patient tolerated procedure well. (5) Sacroiliac joint pain: Code(s): M53.3 - Sacrococcygeal disorders, not elsewhere classified (6) Piriformis muscle pain: Code(s): M79.18 - Myalgia, other site Plan Schedule Right L5-S1 TFESI injection with local and fluoroscopy for ongoing right sided radicular back and right leg pain. Script for Medrol John and muscle relaxant provided at patient's request while he awaits approval from insurance. All questions and concerns have been answered and patient agreed with the plan. Follow up after injections and sooner if needed. Justification for interventional therapy: ? Patient with average pain > 6/10 ? Patient has exhausted conservative therapy, NSAIDs, physical therapy The risks, consequences, alternatives, and benefits of various treatment options were discussed with the patient in great detail, including conservative management, injections and procedures. Patient was informed for hyperglycemic effects of steroids. Orders: Orders FL guidance in treatment room Today M54.16 - Radiculopathy, lumbar region Coding Level of Care Code Procedure Only Diagnoses Muscle spasm of back M62.830 Lumbar spondylosis M47.816 Protrusion of intervertebral disc of lumbosacral region M51.27 Lumbar radiculopathy M54.16 Sacroiliac joint pain M53.3 Piriformis muscle pain M79.18
[2022-11-16 11:28] VITALS: BP 120/90; PULSE 73; RESP 14; O2SAT 98; BMI 25.2
== END 2022-11-16 11:15 | disposition home or self-care (01) ==
LOC: HO.PMCPRC 10:27
PROVIDERS: PCP Internal Medicine; Visit Provider Anesthesiology
DX: M47.26 Other spondylosis with radiculopathy, lumbar region (principal); M53.3 Sacrococcygeal disorders, not elsewhere classified; M51.27 Other intervertebral disc displacement, lumbosacral region
CPT/HCPCS: 64483

== ENCOUNTER → 2022-11-18 08:30 | Outpatient (BNVA) | payer OTHER, SELFPAY | PROVIDERS: PCP Internal Medicine; Visit Provider Nurse Practitioner Family ==

== ENCOUNTER 2022-11-22 10:26 | Outpatient (AMB) | payer OTHER, SELFPAY ==
--- NOTE | 2022-11-22 10:28 | A.OFFVIS_ITS ---
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 Patient reports symptoms started recently. He is able to particiapte in physical therapy exercises and feels pain has been improving in his back and right leg status post recent right L5-S1 TFESI on 11/16/22. Currently rates pain at 2/10. Echols's sign reproduces stretching in his posterior right thigh and no pain in right calf. Denies claudicating pain in his RLE or LLE. No tenderness on palpation of right calf. Patient will continue to monitor his symptoms and reach out to PCP or our office for any worsening of symptoms. Discussed low potassium and muscle cramps that can be associated with steroid injections especially if any electrolyte imbalances. Encouraged well balanced diet and adequate hydration. 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 He reports increased back pain with right leg and right calf pain with intermittent numbness and tingling. Prolonged sitting, standing and walking will increase his symptoms. Patient has been using heat therapy, activity modifications, resting, gabapentin and took time off from work since Tuesday. He states his right buttock felt like he was sitting on a wallet but he was not. Prolonged sitting continues to causes him significant discomfort as well as bending or lifting small objects. Right leg pain radiation is posterior and lateral into his right foot. Patient reports oral steroid medication in the past has alleviated his symptoms and he requests refill for this. His piriformis inj ection was not approved by insurance. We will proceed with Right L5-S1 TFESI to alleviate his symptoms. Denies any recent cough, cold, infection, fever or other significant changes in medical history since last office visit. Patient denies any bladder or bowel incontinence or saddle anesthesia. Pain is rated at 3-4/10 at rest and increased to 6-7/10 with activity and movements. PRIOR: Patient presents today for follow up for low back pain. He recently completed repeat lumbar spine MRI per [facility] and was deemed non surgical for back surgery. Patient reports ongoing right buttock pain worsened with prolonged sitting especially on hard surfaces and right leg pain in posterior and lateral distribution with intermittent numbness and tingling. He is trying to return to work but continues to experience daily pain that interferes with his ADLs, sleep and quality of life. Gabapentin has been well tolerated with partial and temporary alleviation of symptoms. Denies any bladder and bowel incontinence or saddle anesthesia. PRIOR: Patient presents today to assess response to Right Diagnostic Sacroiliac Joint Injection 08/10/[address] Luis. Patient reports 90% pain relief for the first 6 hours after procedure and ongoing 80% pain relief in the projection of right sacroiliac joint area. Patient reports he did not take gabapentin on the day of procedure. He felt some numbness down right leg, injection site tenderness, intermittent groin pain with sitting and tingling down left thigh. Patient also reports difficulty to sleep on his right side after injection as well as ongoing radicular right leg pain. Patient also reports tingling in his scrotal and distal and proximal adjacent areas. He denies any recent injury, inflammation, trauma or falls. Patient reports he regularly sees Urology provider, Dr. Grubbs but has not mention tingling in his scrotal areas. Patient is seeing Dr. Morales next Tuesday for evaluation of central disc protrusion with annular fissure at L5-S1 which narrows the subarticular zones and likely exerts mass effect on the traversing S1 nerve roots. Denies any fever, abdominal pain, bladder and bowel incontinence or saddle anesthesia. Past Procedures: 08/10/22: Right Diagnostic SIJ injection -90% for 6 hours, 80% ongoing pain relief 06/22/22: Right Hip Intra-articular ster oid injection-80% ongoing pain relief 04/21/22: Bilateral L5-S1 TFESI-95% pain relief for first 24 hours, 70% 2 weeks PRIOR: Patient is a pleasant 57 years old male who presents today with lower back pain related to lifting injury on 11/03/21 by lifting a heavy rolled up mat. This is a work related injury and this is a Workers Comp case. 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 Patient has been initially evaluated at [facility] for upper back strain and completed 17 sessions of physical therapy with temporary improvement while performing PT. Patient reports his flexibility and partial range of motion has improved with PT but pain is still present and affects his daily activities, walking, standing, prolonged sitting, bending and sleeping. Patient reports worsening pain with sitting and sleeping for the past 2 weeks. His back is axial and also radiates into his right buttock and right lower extremity posteriorly with right leg and calf tightness, numbness and tingling in his toes. Reports same radiation of pain on the left intermittently in the past 2 weeks. Patient also reports right hip pain that radiates into his right groin. Pain is described as daily intermittent shooting, sharp, tugging, pulling, warming, tingling, dull, sore, hurting, aching, tiring, exhausting, fearful, frightful, punishing, spreading, radiating, tight and squeezing. Patient has been taking Ibuprofen 800 mg tid prn for 5 months since injury for pain. He also received oral steroids and cyclobenzaprine which has elevated some muscle stiffness in his legs. Patient denies previous back surgery or injections. Reports cervical surgery by Dr. Low in 2013, he believes C6-C7 level. Lumbar spine MRI on 01/18/22 showed a central disc protrusion with annular fissure at L5-S1 which narrows the subarticular zones and likely exerts mass effect on the traversing S1 nerve roots. Otherwise minimal degenerative changes of the lumbar spine at L3-L4 and L4-L5. Patient denies any fever, chills, weight loss, abdo shawn pain, bladder or bowel incontinence or saddle anesthesia. Reports right lower extremity weakness. [facility] Medical History Hematuria of unknown etiology Review of Systems Const All systems reviewed & are unremarkable except as noted in HPI and below Physical Exam Vital Signs: Last Vital Signs Pulse 82 11/22/22 10:34 BP 138/92 H 11/22/22 10:34 Pulse Ox 98 11/22/22 10:34 Oxygen Delivery Method Room Air 11/22/22 10:34 BMI result Body Mass Index 25.1 General: Appears afebrile. Alert and oriented. Mood and affect appropriate. Follows and participates in conversation appropriately. Respiratory effort is unlabored. No cough. Able to transition from sit to stand unassisted. Ambulates with bilaterally normal heel strike and toe off. Back/Spine/Pelvis Thoracic/Lumbar Spine: thoraco-lumbar ROM normal, Lasegue's sign negative, straight leg raise negative bilaterally, No thoracic spinal tenderness and No lumbar spinal tenderness Pelvis: no buttock tenderness Extrem General: Yes capillary refill normal, Yes no joint enlargement, Yes no clubbing, cyanosis or edema, Yes no calf tenderness and Yes normal gait Right lower extremity: lower leg (Negative Hesham's sign.) Details: normal to inspection and no edema; no erythema, no tenderness, no localized swelling, no non-pitting edema, no ecchymosis and no unusual warmth Assessment & Plan Assessment & Plan (1) Tenderness of right calf: Code(s): M79.661 - Pain in right lower leg (2) Lumbar degenerative disc disease: Code(s): M51.36 - Other intervertebral disc degeneration, lumbar region (3) Lumbar radiculopathy: Code(s): M54.16 - Radiculopathy, lumbar region Plan Patient presents with normal RLE exam. He is status post right L5-S1 TFESI on 11/16/22 with good results so far for his right radicular leg pain. Pain is rated at 2/10 today. Patient will continue to monitor his symptoms and reach out to PCP or our office for any worsening of symptoms. Discussed low potassium and muscle cramps that can be associated with steroid injections especially if any recent electrolyte imbalances. Encouraged well balanced diet and adequate hydration. All questions and concerns have been answered and patient agreed with the plan. Follow up as needed. Coding Level of Care Code Est Pt Level 3 (59887) Diagnoses Tenderness of right calf M79.661 Lumbar degenerative disc disease M51.36 Lumbar radiculopathy M54.16
[2022-11-22 10:34] VITALS: BP 138/92; PULSE 82; O2SAT 98; BMI 25.1
== END 2022-11-22 10:39 | disposition home or self-care (01) ==
PROVIDERS: PCP Internal Medicine; Visit Provider Nurse Practitioner Family
DX: M51.36 Other intervertebral disc degeneration, lumbar region (principal); M54.16 Radiculopathy, lumbar region; M79.661 Pain in right lower leg
CPT/HCPCS: 99213

== ENCOUNTER → 2022-11-22 10:26 | Outpatient (BNVA) | payer OTHER, SELFPAY | PROVIDERS: PCP Internal Medicine; Visit Provider Nurse Practitioner Family | DX: M79.661 Pain in right lower leg (principal); M51.36 Other intervertebral disc degeneration, lumbar region; M54.16 Radiculopathy, lumbar region; Z98.890 Other specified postprocedural states | CPT/HCPCS: 99212 ==

== ENCOUNTER 2022-12-20 10:35 | Outpatient (AMB) | payer OTHER, SELFPAY ==
[2022-12-20 10:39] VITALS: BP 141/103; PULSE 81; O2SAT 96; BMI 25.2
--- NOTE | 2022-12-20 10:39 | A.OFFVIS_ITS ---
Intake Vital Signs 12/20/22 10:39 Height 6 ft 1 in Weight 191 lb BMI 25.2 BP 141/103 H Blood Pressure Location Rt brachial Position Sitting Pulse 81 Pulse Source Pulse Oximeter Pulse Oximetry (%) 96 Oxygen Delivery Method Room Air Intake Visit Reasons: R L5-S1 TFESI 11/16/22 Intake Note: Pain today 04/09 Cardiothoracic Icu Rn Required: No Accompanied by: Self / Same As Patient Allergies No Known Allergies Allergy (Verified 12/20/22 10:40) Medication List - Last Reconciled 12/20/22 by ALVIN Valdez atorvastatin 10 mg PO DAILY gabapentin 300 mg PO TID 30 days ibuprofen 800 mg PO TID HPI HPI Comments History of Present Illness Details Patient presents today to assess response to Right L5-S1 TFESI on 11/16/[address] Luis. Patient reports ongoing 60% pain relief since the procedure with partial improv ement in his functioning, mobility and sleep. He states his lower back and right leg pain has been flaring up more frequently and Ibuprofen with gabapentin provided him partial and minimal benefit. Patient continues to work daily with 10-lbs weight restriction. He continues to experience low back pain with lifting, bending, prolonged walking or standing, and increased right hip and groin pain with weight bearing. Coughing or sneezing do not aggravate his back or hip pain. I believe these are two separate pain generators for patient with overlapping symptoms. He had good response to right hip steroid injection with fluoroscopy guidance back in 06/22/22 as well as L5-S1 TFESI injection in March 2022 and more recently on 11/16/22. His back pain symptoms are related to work related injury on 11/03/21 from which he has not reached maximum improvement. Patient is interested in undergoing Orthopedic evaluation for ongoing right hip pain related to moderate degenerative osteoarthritis. Patient has pending EMG and NVC studies to further evaluate his lower extremity ongoing paresthesia components. Patient denies any bladder or bowel incontinence or saddle anesthesia. PRIOR: Patient presents today for follow up for right tightness in his right calf. Patient reports symptoms started recently. He is able to particiapte in physical therapy exercises and feels pain has been improving in his back and right leg status post recent right L5-S1 TFESI on 11/16/22. Currently rates pain at 2/10. Echols's sign reproduces stretching in his posterior right thigh and no pain in right calf. Denies claudicating pain in his RLE or LLE. No tenderness on palpation of right calf. Patient will continue to monitor his symptoms and reach out to PCP or our office for any worsening of symptoms. Discussed low potassium and muscle cramps that can be associated with steroid injections especially if any electrolyte imbalances. Encouraged well balanced diet and adequate hydration. 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 He reports increased back pain with right leg and right calf pain with intermittent numbness and tingling. Prolonged sitting, standing and walking will increase his symptoms. Patient has been using heat therapy, activity modifications, resting, gabapentin and took time off from work since Tuesday. He states his right buttock felt like he was sitting on a wallet but he was not. Prolonged sitting continues to causes him significant discomfort as well as bending or lifting small objects. Right leg pain radiation is posterior and lateral into his right foot. Patient reports oral steroid medication in the past has alleviated his symptoms and he requests refill for this. His piriformis injection was not approved by insurance. We will proceed with Right L5-S1 TFESI to alleviate his symptoms. Denies any recent cough, cold, infection, fever or other significant changes in medical history since last office visit. Patient denies any bladder or bowel incontinence or saddle anesthesia. Pain is rated at 3-4/10 at rest and increased to 6-7/10 with activity and movements. PRIOR: Patient presents today for follow up for low back pain. He recently completed repeat lumbar spine MRI per [facility] and was deemed non surgical for back surgery. Patient reports ongoing right buttock pain worsened with prolonged sitting especially on hard surfaces and right leg pain in posterior and lateral distribution with intermittent numbness and tingling. He is trying to return to work but continues to experience daily pain that interferes with his ADLs, sleep and quality of life. Gabapentin has been well tolerated with partial and temporary alleviation of symptoms. Denies any bladder and bowel incontinence or saddle anesthesia. PRIOR: Patient presents today to assess response to Right Diagnostic Sacroiliac Joint Injection 08/10/[address] Luis. Patient reports 90% pain relief for the first 6 hours after procedure and ongoing 80% pain relief in the projection of right sacroiliac joint area. Patient reports he did not take gabapentin on the day of procedure. He felt some numbness down right leg, injection site tenderness, intermittent groin pain with sitting and tingling down left thigh. Patient also reports difficulty to sleep on his right side after injection as well as ongoing radicular right leg pain. Patient also reports tingling in his scrotal and distal and proximal adjacent areas. He denies any recent injury, inflammation, trauma or falls. Patient reports he regularly sees Urology provider, Dr. Grubbs but has not mention tingling in his scrotal areas. Patient is seeing Dr. Morales next Tuesday for evaluation of central disc protrusion with annular fissure at L5-S1 which narrows the subarticular zones and likely exerts mass effect on the traversing S1 nerve roots. Denies any fever, abdominal pain, bladder and bowel incontinence or saddle anesthesia. Past Procedures: 08/10/22: Right Diagnostic SIJ injection -90% for 6 hours, 80% ongoing pain relief 06/22/22: Right Hip Intra-articular ster oid injection-80% ongoing pain relief 04/21/22: Bilateral L5-S1 TFESI-95% pain relief for first 24 hours, 70% 2 weeks PRIOR: Patient is a pleasant 57 years old male who presents today with lower back pain related to lifting injury on 11/03/21 by lifting a heavy rolled up mat. This is a work related injury and this is a Workers Comp case. 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 Patient has been initially evaluated at [facility] for upper back strain and completed 17 sessions of physical therapy with temporary improvement while performing PT. Patient reports his flexibility and partial range of motion has improved with PT but pain is still present and affects his daily activities, walking, standing, prolonged sitting, bending and sleeping. Patient reports worsening pain with sitting and sleeping for the past 2 weeks. His back is axial and also radiates into his right buttock and right lower extremity posteriorly with right leg and calf tightness, numbness and tingling in his toes. Reports same radiation of pain on the left intermittently in the past 2 weeks. Patient also reports right hip pain that radiates into his right groin. Pain is described as daily intermittent shooting, sharp, tugging, pulling, warming, tingling, dull, sore, hurting, aching, tiring, exhausting, fearful, frightful, punishing, spreading, radiating, tight and squeezing. Patient has been taking Ibuprofen 800 mg tid prn for 5 months since injury for pain. He also received oral steroids and cyclobenzaprine which has elevated some muscle stiffness in his legs. Patient denies previous back surgery or injections. Reports cervical surgery by Dr. Low in 2013, he believes C6-C7 level. Lumbar spine MRI on 01/18/22 showed a central disc protrusion with annular fissure at L5-S1 which narrows the subarticular zones and likely exerts mass effect on the traversing S1 nerve roots. Otherwise minimal degenerative changes of the lumbar spine at L3-L4 and L4-L5. Patient denies any fever, chills, weight loss, abdominal pain, bladder or bowel incontinence or saddle anesthesia. Reports right lower extremity weakness. [facility] Medical History Hematuria of unknown etiology Review of Systems Const All systems reviewed & are unremarkable except as noted in HPI and below ENT Reports Normal hearing present Neuro Reports Normal hearing present and Denies Sensory deficit (Neuro) Physical Exam Vital Signs: Last Vital Signs Pulse 81 12/20/22 10:39 BP 141/103 H 12/20/22 10:39 Pulse Ox 96 12/20/22 10:39 Oxygen Delivery Method Room Air 12/20/22 10:39 BMI result Body Mass Index 25.2 General: Appears afebrile. Alert and oriented. Mood and affect appropriate. Follows and participates in conversation appropriately. Respiratory effort is unlabored. No cough. Able to transition from sit to stand unassisted. Ambulates with bilaterally normal heel strike and toe off. Back/Spine/Pelvis Other: Lumbar extension does not reproduce pain. Lumbar flexion and bending increase lower back pain. SLR testing negative. Sahil's testing reproduce right hip and right groin pain but not low back pain. +Pelvic compression on the right. Reports right groin pain with I/E hip rotations. Reports RLE dysesthesia and paresthesia. No motor or sensory deficits bilaterally. Cervical Spine: cervical ROM normal and No Cervical spine tenderness Thoracic/Lumbar Spine: Lasegue's sign negative, straight leg raise negative bilaterally, No thoracic spinal tenderness and lumbar spinal tenderness (L4-S1) Pelvis: no buttock tenderness Sacroiliac joints: on the right nontender and on the left tender to palpation Neuro General: Normal light touch and pain sensation and no focal motor deficits Cranial nerves: Yes Normal hearing present Cognition (Neuro): normal cognition Gait exam (Neuro): Antalgic gait present (mild limping due to right groin pain) Motor exam (neuro): 5/5 motor strength present throughout and Motor abnormalities not present Sensory Exam: No Sensory deficit (Neuro) Extrem General: Yes capillary refill normal, Yes no clubbing, cyanosis or edema and Yes no calf tenderness Results Reviewed Results Reviewed: MR LUMBAR SPINE WITHOUT CONTRAST 08/25/22 COMPARISON: Lumbar spine MRI 01/18/2022 FINDINGS: There is slight grade 1 retrolisthesis of L5 on S1. Alignment is otherwise normal. Vertebral heights are preserved. No acute bone marrow signal changes. There is slight loss of intervertebral disc height and T2 signal intensity at L5-S1 related to disc degeneration. The tip of the conus medullaris is located at L1. No mass effect on the conus. Visualized distal cord signal intensity is normal. At L1-L2, L2-L3, L3-L4, and L4-5 the annular contours are normal. No canal or neuroforaminal compromise at these 4 levels. At L5-S1 there is a broad shallow central protrusion superimposed upon a bulging disc. No canal stenosis. No mass effect on the traversing or foraminal nerve roots. Limited visualization of the retroperitoneal anatomy reveals no abnormal finding. Psoas and paraspinal muscle groups are symmetric. IMPRESSION: There is a broad shallow central protrusion at L5-S1. Otherwise unremarkable examination. No canal stenosis. No mass effect on the traversing or foraminal nerve roots. MR LUMBAR SPINE WITHOUT CONTRAST 01/18/22 CLINICAL INFORMATION: Lifting injury, persistent pain FINDINGS: Mild left convex curvature of the lumbar spine. No suspicious marrow signal or focal osseous lesion. L2 vertebral body hemangioma. The vertebral body heights are maintained. Disc desiccation and height loss at L5-S1.. The conus medullaris terminates at the level of L1-L2. The distal spinal cord is normal in appearance. The cauda equina nerve roots appear normal. No significant abnormalities of the paraspinal musculature.. Limited evaluation of the intra-abdominal structures without significant abnormalities. The abdominal aorta is of normal contour and caliber. Degenerative changes of the partially visualized sacroiliac joints, left greater than right. SPINAL LEVELS: T12-L1: No significant spinal canal or neural foraminal narrowing L1-L2: No significant spinal canal or neuroforaminal narrowing. L2-L3: No significant spinal canal or neuroforaminal narrowing. L3-L4: No significant spinal canal or neuroforaminal narrowing. Shallow disc bulge and mild facet arthropathy. L4-L5: No significant spinal canal or neuroforaminal narrowing. Shallow disc bulge and mild facet arthropathy. L5-S1: Central disc protrusion with annular fissure narrows the bilateral subarticular zones with likely mass effect on the traversing S1 nerve roots. Mild facet arthropathy. No significant spinal canal or neural foraminal narrowing IMPRESSION: 1. At L5-S1, there is a central disc protrusion with annular fissure which narrows the subarticular zones and likely exerts mass effect on the traversing S1 nerve roots. 2. Otherwise minimal degenerative changes of the lumbar spine at L3-L4 and L4-L5. XR HIP, RIGHT 03/26/22 CLINICAL INFORMATION: Pain in the right hip. FINDINGS: No evidence of fractures or subluxation. SI joints are symmetric. Pubic symphysis is maintained. 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 Pelvic phleboliths. No significant soft tissue abnormality. IMPRESSION: 1. No acute fractures or subluxation. 2. 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 Assessment & Plan Assessment & Plan (1) Right hip pain: Code(s): M25.551 - Pain in right hip (2) Hip osteoarthritis: Code(s): M16.9 - Osteoarthritis of hip, unspecified (3) Paresthesia of right lower extremity: Code(s): R20.2 - Paresthesia of skin (4) Lumbar spondylosis: Code(s): M47.816 - Spondylosis without myelopathy or radiculopathy, lumbar region (5) Protrusion of intervertebral disc of lumbosacral region: Code(s): M51.27 - Other intervertebral disc displacement, lumbosacral region (6) Lumbar degenerative disc disease: Code(s): M51.36 - Other intervertebral disc degeneration, lumbar region Plan 1. Orthopedic Referral for ongoing right hip pain. Reports good results with right hip steroid injections 05/2022, which can be repeated as needed. 2. Pending EMG and NVC studies to further evaluation of RLE occasional numbness and tingling. He is able to continue to work with weight lifting restrictions, but works with the ongoing symptoms and has not yet reached maximum improvement. All questions and concerns have been answered and patient agreed with the plan. Follow up for Neurodiagnostic studies review and sooner if needed. Orders: Referrals Orthopedics Referral M16.9 - Osteoarthritis of hip, unspecified, M25.551 - Pain in right hip Coding Level of Care Code Est Pt Level 4 (09924) Diagnoses Right hip pain M25.551 Hip osteoarthritis M16.9 Paresthesia of right lower extremity R20.2 Lumbar spondylosis M47.816 Protrusion of intervertebral disc of lumbosacral region M51.27 Lumbar degenerative disc disease M51.36
== END 2022-12-20 10:58 | disposition home or self-care (01) ==
PROVIDERS: PCP Internal Medicine; Visit Provider Nurse Practitioner Family
DX: M25.551 Pain in right hip (principal); M16.9 Osteoarthritis of hip, unspecified; R20.2 Paresthesia of skin; M47.816 Spondylosis without myelopathy or radiculopathy, lumbar region; M51.27 Other intervertebral disc displacement, lumbosacral region; M51.36 Other intervertebral disc degeneration, lumbar region
CPT/HCPCS: 99213

== ENCOUNTER → 2022-12-20 10:35 | Outpatient (BNVA) | payer OTHER, SELFPAY | PROVIDERS: PCP Internal Medicine; Visit Provider Nurse Practitioner Family | DX: M25.551 Pain in right hip (principal); M16.9 Osteoarthritis of hip, unspecified; R20.2 Paresthesia of skin; M47.816 Spondylosis without myelopathy or radiculopathy, lumbar region; M51.27 Other intervertebral disc displacement, lumbosacral region; M51.36 Other intervertebral disc degeneration, lumbar region | CPT/HCPCS: 99212 ==

== ENCOUNTER 2022-12-23 10:13 | Outpatient (AMB) | payer OTHER, SELFPAY ==
--- NOTE | 2022-12-23 10:16 | A.OFFVIS_ITS ---
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 He reports he has lower back pain that occurred when he lifted a rug that he has been seeing pain management for. He has had injections in his back for this in October. He said his hip pain started a few months ago, he denies injury. 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 He also states he has groin pain. He is taking ibuprofen daily and gabapentin. Patient states that at times he has ?tingling sensation? which radiates down his right leg. He denies any weakness. He also reports intermittent right groin pain. Allergies No Known Allergies Allergy (Verified 12/23/22 10:17) Medication List - Last Reconciled 12/23/22 by Ana Rees RN atorvastatin 10 mg PO DAILY gabapentin 300 mg PO TID 30 days ibuprofen 800 mg PO TID [facility] Medical History Hematuria of unknown etiology Physical Exam Const Other: Well-nourished well-developed very friendly male awake alert and oriented x3 in no acute distress Extrem Other: Bilateral lower extremity examination shows good capillary refill, no skin lesions noted, normal sensation light touch Right hip examination shows full range of motion when compared to his left hip, minimal tenderness over his bursa, increased discomfort with forward flexion and internal rotation Results Reviewed Results Reviewed: X-rays of the patient's right hip show mild diffuse joint space narrowing, no acute bony abnormalities Assessment & Plan Assessment & Plan (1) Right hip pain: Code(s): M25.551 - Pain in right hip Plan Mr. 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 Thus, I will send the patient for an MRI of his right hip for further evaluation. I will see him back once the MRI is completed to discuss the findings and treatment options. Feel free to call me at any time should questions regarding his orthopedic management arise. I spent 22 minutes in reviewing the patient's records and imaging studies, seeing the patient and documenting in the medical record. Orders: Orders MR hip RT wo con Today M25.551 - Pain in right hip Coding Level of Care Code New Pt Level 2 (79461) Diagnoses Right hip pain M25.551
== END 2022-12-23 10:54 | disposition home or self-care (01) ==
PROVIDERS: PCP Internal Medicine; Visit Provider Orthopaedic Surgery
DX: M25.551 Pain in right hip (principal)
CPT/HCPCS: 99202

== ENCOUNTER → 2022-12-23 10:13 | Outpatient (BNVA) | payer OTHER, SELFPAY | PROVIDERS: PCP Internal Medicine; Visit Provider Orthopaedic Surgery | DX: M25.551 Pain in right hip (principal); M25.552 Pain in left hip | CPT/HCPCS: 99202 ==

== ENCOUNTER 2022-12-29 10:08 | Outpatient (REF) | payer BC, SELFPAY ==
--- NOTE | ~2022-12-29 | XR_ITS ---
EXAMINATION: XR KNEE, BILATERAL CLINICAL INFORMATION: Pain COMPARISON: None. TECHNIQUE: 4 views of each knee FINDINGS: RIGHT: No acute visible fracture or dislocation. Mild multicompartment arthritic changes. Mild narrowing of the medial femorotibial compartment. Laterally narrowing the lateral patellofemoral compartment. Enthesopathy at the quadriceps tendon insertion site. Joint spaces and alignment are otherwise maintained. Small knee joint effusion. Soft tissues are unremarkable. LEFT: No acute visible fracture or dislocation. Mild multicompartment arthritic changes. Mild narrowing of the medial femorotibial compartment. Laterally narrowing the lateral patellofemoral compartment. Enthesopathy at the quadriceps tendon insertion site and patellar tendon origination and insertion site. Joint spaces and alignment are otherwise maintained. Small knee joint effusion. Soft tissues are unremarkable. XR/XR knee LT 4V IMPRESSION: 1. No acute visible fracture or dislocation. 2. Bilateral mild to moderate multicompartment arthritic changes. 3. Small bilateral knee joint effusions.
--- NOTE | ~2022-12-29 | XR_ITS ---
EXAMINATION: XR KNEE, BILATERAL CLINICAL INFORMATION: Pain COMPARISON: None. TECHNIQUE: 4 views of each knee FINDINGS: RIGHT: No acute visible fracture or dislocation. Mild multicompartment arthritic changes. Mild narrowing of the medial femorotibial compartment. Laterally narrowing the lateral patellofemoral compartment. Enthesopathy at the quadriceps tendon insertion site. Joint spaces and alignment are otherwise maintained. Small knee joint effusion. Soft tissues are unremarkable. LEFT: No acute visible fracture or dislocation. Mild multicompartment arthritic changes. Mild narrowing of the medial femorotibial compartment. Laterally narrowing the lateral patellofemoral compartment. Enthesopathy at the quadriceps tendon insertion site and patellar tendon origination and insertion site. Joint spaces and alignment are otherwise maintained. Small knee joint effusion. Soft tissues are unremarkable. XR/XR knee RT 4V IMPRESSION: 1. No acute visible fracture or dislocation. 2. Bilateral mild to moderate multicompartment arthritic changes. 3. Small bilateral knee joint effusions.
== END 2022-12-29 10:09 | disposition home or self-care (01) ==
LOC: HO.HMGCX 10:08
PROVIDERS: PCP Internal Medicine; Visit Provider Internal Medicine
DX: M25.561 Pain in right knee (principal); M25.562 Pain in left knee
CPT/HCPCS: 73564

== ENCOUNTER 2022-12-30 13:38 | Outpatient (REF) | payer OTHER, SELFPAY ==
--- NOTE | 2022-12-30 13:41 | EMG_ITS ---
Chief complaint: Right groin and leg pain, with tingling on both feet Reason for referral: Evaluate for radiculopathy Referred by: Christin Reyes NP Procedure done: Right lower extremity NCS/EMG, comparison to left Precautions and/or limitations: None The limb temperature was monitored continuously and remained between 32-36 degrees C during the performance of the NCS. Nerve Conduction Studies Anti Sensory Summary Table ?Stim Site NR Onset (ms) Norm Onset (ms) Peak (ms) Norm Peak (ms) O-P Amp (?V) Norm O-P Amp Site1 Site2 Delta-0 (ms) Dist (cm) Zoltan (m/s) Norm Zoltan (m/s) Left Sural Anti Sensory (Lat Mall) Calf ? 2.8 3.7 <4.0 2.8 >5.0 Calf Lat Mall 2.8 14.0 50 Right Sural Anti Sensory (Lat Mall) Calf ? 3.4 4.2 <4.0 6.9 >5.0 Calf Lat Mall 3.4 14.0 41 ? 3.3 4.3 10.0 Motor Summary Table ?Stim Site NR Onset (ms) Norm Onset (ms) O-P Amp (mV) Norm O-P Amp iAmp (mV) Amp (1st) (%) Site1 Site2 Delta-0 (ms) Dist (cm) Zoltan (m/s) Norm Zoltan (m/s) Right Peroneal Motor (Ext Dig Brev) Ankle ? 5.6 <4.0 4.7 >2.5 6.1 100.0 Ankle Ext Dig Brev 5.6 0.0 B Fib ? 13.8 4.3 5.9 91.5 B Fib Ankle 8.2 35.0 43 >40 Poplt ? 13.8 4.6 6.3 97.9 Poplt B Fib 0.0 4.0 >40 Left Tibial Motor (Abd Roberts Brev) Ankle ? 4.5 <5 9.7 >2.5 13.6 100.0 Ankle Abd Roberts Brev 4.5 0.0 Knee ? 14.7 6.2 8.3 63.9 Knee Ankle 10.2 43.0 42 >40 Right Tibial Motor (Abd Roberts Brev) Ankle ? 5.1 <5 8.3 >2.5 10.6 100.0 Ankle Abd Roberts Brev 5.1 0.0 Knee ? 15.4 5.3 6.7 63.9 Knee Ankle 10.3 43.0 42 >40 EMG ?Side Muscle Nerve Root Ins Act Fibs Psw Amp Dur Poly Recrt Int Pat Comment Right AbdHallucis MedPlantar S1-2 Nml Nml Nml Nml Nml 0 Nml Complete Right AntTibialis Dp Br Peron L4-5 Nml Nml Nml Nml Nml 0 Nml Complete Right PostTibialis Tibial L5, S1 Nml Nml Nml Nml Nml 0 Nml Complete Right MedGastroc Tibial S1-2 Nml Nml Nml Nml Nml 0 Nml Complete Right VastusMed Femoral L2-4 Nml Nml Nml Nml Nml 0 Nml Complete Paraspinal EMG ?Side Muscle Nerve Root Ins Act Fibs Psw Comment Right Lumbar Upper Rami Nml Nml Nml Right Lumbar Mid Rami Nml Nml Nml Right Lumbar Lower Rami Incr 1+ 1+ FINDINGS: Right peroneal nerve showed prolonged distal latency, normal amplitude and normal conduction velocity. Right tibial nerve showed prolonged distal latency, normal amplitude and normal conduction velocity. This was compared to left side, left side was within normal. Right sural nerve showed prolonged peak latency. Left sural nerve showed small amplitude. Concentric needle EMG was performed in selected muscles of the right lower extremity and lumbar paraspinals. Study revealed Signs of electric abnormalities as shown in the table below. Right lumbar paraspinals showed increased insertional activity, PSWs and fibrillations. IMPRESSION: 1. This is an abnormal study. 2. There is electrodiagnostic findings suggestive for right L5-S1 radiculopathy, based on abnormal CMAPs and denervation on the lumbar paraspinals. 3. There is electrodiagnostic findings suggestive for peripheral neuropathy, based on abnormal bilateral sural sensory nerves. CLINICAL COMMENT: Further clinical correlation recommended. Thank you for your kind referral. So Cervantes MD, HANNAH Board Certified, [place] [employer] and [employer] (ABPMR) Board Certified, [place] Board [employer] Electrodiagnostic Medicine (ABEM) [place] [id number] [facility]
== END 2022-12-30 13:39 | disposition home or self-care (01) ==
LOC: HO.NEURO 13:38
PROVIDERS: PCP Internal Medicine; Visit Provider Nurse Practitioner Family
DX: R20.2 Paresthesia of skin (principal); M54.16 Radiculopathy, lumbar region
CPT/HCPCS: 95886; 95909

== ENCOUNTER → 2022-12-30 13:41 | Outpatient (BNV) | payer OTHER, SELFPAY | PROVIDERS: PCP Internal Medicine; Visit Provider Physical Medicine & Rehabilitation | DX: M54.16 Radiculopathy, lumbar region (principal); G90.09 Other idiopathic peripheral autonomic neuropathy | CPT/HCPCS: 95886; 95909 ==

== ENCOUNTER 2023-02-24 13:53 | Outpatient (AMB) | payer BC, SELFPAY ==
--- NOTE | 2023-02-24 13:56 | A.OFFVIS_ITS ---
Intake Intake Visit Reasons: Newprob-B/L knee pain Intake Note: Felix is a 57 year old male who presents today for a evaluation of his bilateral knee pain. Patient reports his pain had been going on for a couple of months with no treatment. He states that his right knee is worse than the left knee. Pain is worse at night when he is laying on his side per patient. Patient reports seeing his PCP and he prescribed him meloxicam for pain relief but it hasn't been helping. He denies any locking or giving way. Allergies No Known Allergies Allergy (Verified 02/24/23 14:08) Medication List - Last Reconciled 02/24/23 by Salvador Espinoza MD acetaminophen ER (Tylenol Arthritis Pain) 1,300 mg (2 x 650 mg) PO Q12H PRN atorvastatin 10 mg PO DAILY gabapentin 300 mg PO TID 30 days ibuprofen 800 mg PO TID meloxicam 15 mg PO DAILY methylprednisolone (Medrol (John)) PO PER [facility] Medical History Hematuria of unknown etiology Physical Exam Const Other: Well-nourished well-developed very friendly male awake alert and oriented x3 in no acute distress Extrem Other: Bilateral lower extremity examination shows good capillary refill, no skin lesions noted, normal sensation light touch Bilateral knee examination shows minimal effusions, minimal crepitus with range of motion, tenderness along his medial joint lines, positive Sanam's test, no instability Results Reviewed Results Reviewed: X-rays of the patient's bilateral knee show mild diffuse joint space narrowing, no acute bony abnormalities Assessment & Plan Assessment & Plan (1) Bilateral knee pain: Code(s): M25.561 - Pain in right knee; M25.562 - Pain in left knee Plan Mr. Ortega presents with bilateral knee pains, right greater than left, due to early degenerative joint disease as well as possible medial meniscus tearing. I had a lengthy discussion with the patient regarding the treatment options. At this point the patient's symptoms are tolerable to him. Activity modifications were discussed at length with the patient. He will follow up with me on an as-needed basis should his symptoms not plateau at an unacceptable level over the next few months. Feel free to call me at any time should questions regarding his orthopedic management arise. I spent 20 minutes in reviewing the patient's records and imaging studies, seeing the patient and documenting in the medical record. Coding Level of Care Code Est Pt Level 2 (64043) Diagnoses Bilateral knee pain M25.561; M25.562
== END 2023-02-24 14:24 | disposition home or self-care (01) ==
PROVIDERS: PCP Internal Medicine; Visit Provider Orthopaedic Surgery
DX: M17.0 Bilateral primary osteoarthritis of knee (principal)
CPT/HCPCS: 99213

== ENCOUNTER → 2023-02-24 13:53 | Outpatient (BNVA) | payer OTHER, SELFPAY | PROVIDERS: PCP Internal Medicine; Visit Provider Orthopaedic Surgery | DX: M25.561 Pain in right knee (principal); M25.562 Pain in left knee | CPT/HCPCS: 99212 ==

== ENCOUNTER 2023-03-09 08:46 | Outpatient (AMB) | payer BC, SELFPAY ==
[2023-03-09 08:47] VITALS: BMI 25.2
--- NOTE | 2023-03-09 08:47 | A.OFFVIS_ITS ---
Intake Vital Signs 03/09/23 08:47 Height 6 ft 1 in Weight 191 lb BMI 25.2 Intake Visit Reasons: ov- MRI Hip RT review Intake Note: Felix is a 57 year old male who presents with complaints of intermittent pain in his right hip. He describes his pain as aching in nature. The patient also has pain in his low back with associated numbness radiating down his right leg. He has been seen by the neuro surgery team here at [facility] as well as at [facility]. He is due to see Dr. Low next month to further discuss the risks and benefits of low back surgery. Dr. Low perform surgery on his neck in the past. Allergies No Known Allergies Allergy (Verified 03/09/23 08:52) Medication List - Last Reconciled 03/09/23 by Salvador Espinoza MD atorvastatin 10 mg PO DAILY gabapentin 300 mg PO TID 30 days meloxicam 15 mg PO DAILY PFSH Medical History Hematuria of unknown etiology Physical Exam Vital Signs: BMI result Body Mass Index 25.2 Const Other: Well-nourished well-developed very friendly male awake alert and oriented x3 in no acute distress Extrem Other: Right hip examination shows mild tenderness over his bursa, discomfort with range of motion Results Reviewed Results Reviewed: MRI of the patient's right hip shows minimal degenerative changes, there is a tear of the anterior labrum Assessment & Plan Assessment & Plan (1) Labral tear of right hip joint: Code(s): S73.191A - Other sprain of right hip, initial encounter Plan Mr. Ortega presents with intermittent right hip pain due to a labral tear. At this point there is no indication for right total hip replacement surgery. The patient may be a candidate for right hip arthroscopic surgery if his symptoms warrant in the future. I did give him contact information for two orthopedic surgeons here in [place] who perform hip arthroscopic surgery. The patient will also follow-up with Dr. Low to further discuss treatment options for his low back pain. Feel free to call me at any time should questions regarding his orthopedic management arise. I spent 22 minutes in reviewing the patient's records and imaging studies, seeing the patient and documenting in the medical record. Coding Level of Care Code Est Pt Level 2 (83170) Diagnoses Labral tear of right hip joint S73.191A
== END 2023-03-09 09:11 | disposition home or self-care (01) ==
PROVIDERS: PCP Internal Medicine; Visit Provider Orthopaedic Surgery
DX: S73.191A Other sprain of right hip, initial encounter (principal)
CPT/HCPCS: 99213

== ENCOUNTER → 2023-03-09 08:46 | Outpatient (BNVA) | payer BC, OTHER, SELFPAY | PROVIDERS: PCP Internal Medicine; Visit Provider Orthopaedic Surgery ==

== ENCOUNTER 2023-03-10 13:01 | Outpatient (AMB) | payer OTHER, SELFPAY ==
--- NOTE | 2023-03-10 13:03 | MHC.OFFVIS ---
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 Patient reports he underwent initial neurosurgical evaluation with PA at [facility] and has another evaluation by Dr. Low on 04/19/23. She reports axial low back pain without significant radiation into his lower extremity at this time. Pain in most prominent with prolonged sitting, bending, lumbar extension and lifting. He was also evaluated by Dr. Espinoza and was told he has mild case of right lateral tear. We will proceed with updating his lumbar spine imaging with xray prior to considering diagnostic lumbar medial branch blocks vs facet blocks. Patient denies any bladder or bowel incontinence or saddle anesthesia. Past Procedures: 11/16/22: Right L5-S1 TFESI-60% pain relief 08/10/22: Right Diagnostic SIJ injection-90% for 6 hours, 80% ongoing pain relief 06/22/22: Right Hip Intra-articular steroid injection-80% ongoing pain relief 04/21/22: Bilateral L5-S1 TFESI-95% pain relief for first 24 hours, 70% 2 weeks PRIOR: Patient is a pleasant 57 years old male who presents today with lower back pain related to lifting injury on 11/03/21 by lifting a heavy rolled up mat. This is a work related injury and this is a Workers Comp case. 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 Patient has been initially evaluated at [facility] for upper back strain and completed 17 sessions of physical therapy with temporary improvement while performing PT. Patient reports his flexibility and partial range of motion has improved with PT but pain is still present and affects his daily activities, walking, standing, prolonged sitting, bending and sleeping. Patient reports worsening pain with sitting and sleeping for the past 2 weeks. His back is axial and also radiates into his right buttock and right lower extremity posteriorly with right leg and calf tightness, numbness and tingling in his toes. Reports same radiation of pain on the left intermittently in the past 2 weeks. Patient also reports right hip pain that radiates into his right groin. Pain is described as daily intermittent shooting, sharp, tugging, pulling, warming, tingling, dull, sore, hurting, aching, tiring, exhausting, fearful, frightful, punishing, spreading, radiating, tight and squeezing. Patient has been taking Ibuprofen 800 mg tid prn for 5 months since injury for pain. He also received oral steroids and cyclobenzaprine which has elevated some muscle stiffness in his legs. Patient denies previous back surgery or injections. Reports cervical surgery by Dr. Low in 2013, he believes C6-C7 level. Lumbar spine MRI on 01/18/22 showed a central disc protrusion with annular fissure at L5-S1 which narrows the subarticular zones and likely exerts mass effect on the traversing S1 nerve roots. Otherwise minimal degenerative changes of the lumbar spine at L3-L4 and L4-L5. Patient denies any fever, chills, weight loss, abdominal pain, bladder or bowel incontinence or saddle anesthesia. Reports right lower extremity weakness. [facility] Medical History Hematuria of unknown etiology Review of Systems Const All systems reviewed & are unremarkable except as noted in HPI and below ENT Reports Normal hearing present Neuro Reports Normal hearing present and Denies Sensory deficit (Neuro) Physical Exam Vital Signs: Last Vital Signs Pulse 77 03/10/23 13:05 BP 137/77 03/10/23 13:05 Pulse Ox 98 03/10/23 13:05 Oxygen Delivery Method Room Air 03/10/23 13:05 BMI result Body Mass Index 25.4 General: Appears afebrile. Alert and oriented. Mood and affect appropriate. Follows and participates in conversation appropriately. Respiratory effort is unlabored. No cough. Able to transition from sit to stand unassisted. Ambulates with bilaterally normal heel strike and toe off. Back/Spine/Pelvis Other: Lumbar extension reproduce mild pain. Lumbar flexion and bending increase lower back pain. Painful facet loading, left>right. SLR testing negative. Sahil's testing reproduce right hip and right groin pain but not low back pain. Reports mild right groin pain with I/E hip rotations. Reports RLE dysesthesia and paresthesia. No motor or sensory deficits bilaterally. Demonstrates 5/5 strength of quadriceps bilaterally as well as flexion/dorsiflexion of bilateral feet against resistance. Cervical Spine: cervical ROM normal, Cervical spine scars present and No Cervical spine tenderness Thoracic/Lumbar Spine: thoracic and lumbar spine normal to inspection, No Thoracic/lumbar spine scar(s), Lasegue's sign negative, straight leg raise negative bilaterally, pain with thoraco-lumbar ROM, No thoracic spinal tenderness and lumbar spinal tenderness (L4-S1) Pelvis: no buttock tenderness Sacroiliac joints: on the right nontender and on the left tender to palpation Neuro General: Normal light touch and pain sensation and no focal motor deficits Cranial nerves: Yes Normal hearing present Cognition (Neuro): normal cognition Gait exam (Neuro): Antalgic gait present (mild limping due to right groin pain) Motor exam (neuro): 5/5 motor strength present throughout and Motor abnormalities not present Sensory Exam: No Sensory deficit (Neuro) Extrem General: Yes capillary refill normal, Yes no clubbing, cyanosis or edema and Yes no calf tenderness Results Reviewed Results Reviewed: MR LUMBAR SPINE WITHOUT CONTRAST 08/25/22 COMPARISON: Lumbar spine MRI 01/18/2022 FINDINGS: There is slight grade 1 retrolisthesis of L5 on S1. Alignment is otherwise normal. Vertebral heights are preserved. No acute bone marrow signal changes. There is slight loss of intervertebral disc height and T2 signal intensity at L5-S1 related to disc degeneration. The tip of the conus medullaris is located at L1. No mass effect on the conus. Visualized distal cord signal intensity is normal. At L1-L2, L2-L3, L3-L4, and L4-5 the annular contours are normal. No canal or neuroforaminal compromise at these 4 levels. At L5-S1 there is a broad shallow central protrusion superimposed upon a bulging disc. No canal stenosis. No mass effect on the traversing or foraminal nerve roots. Limited visualization of the retroperitoneal anatomy reveals no abnormal finding. Psoas and paraspinal muscle groups are symmetric. IMPRESSION: There is a broad shallow central protrusion at L5-S1. Otherwise unremarkable examination. No canal stenosis. No mass effect on the traversing or foraminal nerve roots. MR LUMBAR SPINE WITHOUT CONTRAST 01/18/22 CLINICAL INFORMATION: Lifting injury, persistent pain FINDINGS: Mild left convex curvature of the lumbar spine. No suspicious marrow signal or focal osseous lesion. L2 vertebral body hemangioma. The vertebral body heights are maintained. Disc desiccation and height loss at L5-S1.. The conus medullaris terminates at the level of L1-L2. The distal spinal cord is normal in appearance. The cauda equina nerve roots appear normal. No significant abnormalities of the paraspinal musculature.. Limited evaluation of the intra-abdominal structures without significant abnormalities. The abdominal aorta is of normal contour and caliber. Degenerative changes of the partially visualized sacroiliac joints, left greater than right. SPINAL LEVELS: T12-L1: No significant spinal canal or neural foraminal narrowing L1-L2: No significant spinal canal or neuroforaminal narrowing. L2-L3: No significant spinal canal or neuroforaminal narrowing. L3-L4: No significant spinal canal or neuroforaminal narrowing. Shallow disc bulge and mild facet arthropathy. L4-L5: No significant spinal canal or neuroforaminal narrowing. Shallow disc bulge and mild facet arthropathy. L5-S1: Central disc protrusion with annular fissure narrows the bilateral subarticular zones with likely mass effect on the traversing S1 nerve roots. Mild facet arthropathy. No significant spinal canal or neural foraminal narrowing IMPRESSION: 1. At L5-S1, there is a central disc protrusion with annular fissure which narrows the subarticular zones and likely exerts mass effect on the traversing S1 nerve roots. 2. Otherwise minimal degenerative changes of the lumbar spine at L3-L4 and L4-L5. XR HIP, RIGHT 03/26/22 CLINICAL INFORMATION: Pain in the right hip. FINDINGS: No evidence of fractures or subluxation. SI joints are symmetric. Pubic symphysis is maintained. 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 Pelvic phleboliths. No significant soft tissue abnormality. IMPRESSION: 1. No acute fractures or subluxation. 2. 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 Assessment & Plan Assessment & Plan (1) Lumbar degenerative disc disease: Code(s): M51.36 - Other intervertebral disc degeneration, lumbar region (2) Lumbar spondylosis: Code(s): M47.816 - Spondylosis without myelopathy or radiculopathy, lumbar region (3) Protrusion of intervertebral disc of lumbosacral region: Code(s): M51.27 - Other intervertebral disc displacement, lumbosacral region Plan Lumbar spine imaging to assess degree of degenerative changes, any subluxation, listhesis, compression fractures or pars defects. Patient will return to the clinic to discuss results of the xray findings when it is done and consider interventional therapy as indicated. Discussed interventional treatment for axial low back pain, such as diagnostic lumbar MBBs vs facet blocks for potential therapeutic injections, peripheral nerve stimulation with Sprint PNS trial and lumbar medial branch RFA procedures. Follow up with Dr. Low at [facility] as planned. Patient is considering back surgery. All questions were answered and the patient is in agreement of plan. Follow-up after injections and sooner as needed. Orders: Orders XR lumbar spine 4V min Today M47.816 - Spondylosis without myelopathy or radiculopathy, lumbar region, M51.36 - Other intervertebral disc degeneration, lumbar region Coding Level of Care Code Est Pt Level 4 (38769) Diagnoses Lumbar degenerative disc disease M51.36 Lumbar spondylosis M47.816 Protrusion of intervertebral disc of lumbosacral region M51.27
[2023-03-10 13:05] VITALS: BP 137/77; PULSE 77; O2SAT 98; BMI 25.4
== END 2023-03-10 13:20 | disposition home or self-care (01) ==
PROVIDERS: PCP Internal Medicine; Visit Provider Nurse Practitioner Family
DX: M51.36 Other intervertebral disc degeneration, lumbar region (principal); M47.816 Spondylosis without myelopathy or radiculopathy, lumbar region; M51.27 Other intervertebral disc displacement, lumbosacral region
CPT/HCPCS: 99214

== ENCOUNTER → 2023-03-10 13:01 | Outpatient (BNVA) | payer BC, OTHER, SELFPAY | PROVIDERS: PCP Internal Medicine; Visit Provider Nurse Practitioner Family | DX: M51.36 Other intervertebral disc degeneration, lumbar region (principal); M47.816 Spondylosis without myelopathy or radiculopathy, lumbar region; M51.27 Other intervertebral disc displacement, lumbosacral region | CPT/HCPCS: 99212 ==

== ENCOUNTER 2023-03-11 10:25 | Outpatient (REF) | payer BC, OTHER, SELFPAY ==
--- NOTE | ~2023-03-11 | XR_ITS ---
EXAMINATION: XR LUMBOSACRAL SPINE WITH OBLIQUES CLINICAL INFORMATION: Other intervertebral disc degeneration, lumbar region COMPARISON: MRI lumbar spine 08/25/2022 TECHNIQUE: AP, both oblique, and lateral views of the lumbar spine. Lateral view of the lumbosacral junction. FINDINGS: There 5 nonrib-bearing lumbar-type vertebral bodies. There is slight anterior wedge compression of the L1 vertebral body. The height of the remainder of the lumbar vertebral bodies is well-maintained. There is grade 1 retrolisthesis of L5 on S1. Degenerative facet joint disease is seen at L5-S1. XR/XR lumbar spine 4V min IMPRESSION: 1. Slight anterior wedge compression of the L1 vertebral body. 2. Grade 1 retrolisthesis of L5 on S1. 3. Degenerative disc and degenerative facet joint disease at L5-S1.
== END 2023-03-11 10:26 | disposition home or self-care (01) ==
LOC: HO.XRAY 10:25
PROVIDERS: PCP Internal Medicine; Visit Provider Nurse Practitioner Family
DX: M51.36 Other intervertebral disc degeneration, lumbar region (principal); M47.816 Spondylosis without myelopathy or radiculopathy, lumbar region
CPT/HCPCS: 72110

== ENCOUNTER 2023-08-04 09:45 | Outpatient (AMB) | payer BC, SELFPAY ==
--- NOTE | 2023-08-04 10:24 | A.OFFVIS_ITS ---
Intake Visit Reasons: 1Y UA (confirmed) Intake Note: Patient is Present for Follow Up UA Urology Medication: None Antibiotic Allergies:None Blood Thinners:None Allergies No Known Allergies Allergy (Verified 08/04/23 10:25) HPI Comments Details: Felix is a pleasant male. He is a patient Dr. Kim. He is seen for the following urologic conditions - microscopic hematuria Yearly follow-up No evidence of blood in the urine Does have minor postvoid dribbling Information provided regarding pelvic floor exercises P.r.n. 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 [employer] Nonsmoker Cytology occasional atypical Imaging - 11/19 CT urogram with large prostate No episodes of gross hematuria Adequate urinary parameters PFSH Medical History Hematuria of unknown etiology Review of Systems Const Denies chills and Denies fever(s) Card Reports no additional complaints and Denies syncope Resp Denies cough GI Denies abdominal pain and Denies heartburn Reports as per HPI and Denies change in libido Neuro Denies syncope Psych Denies change in libido Endo Denies change in libido Physical Exam Const General: cooperative, healthy appearing, comfortable and no acute distress Orientation/consciousness: patient oriented x3 HEENT Face and sinus: Yes normal facial exam Mouth: moist mucous membranes Neck Neck: Yes normal visual inspection, Yes full ROM and Yes trachea midline Chest Chest palpation & inspection: normal inspection of the chest Resp Effort & Inspection: normal respiratory effort, able to speak in complete sentences and no respiratory distress GI Inspection: Yes normal to inspection Back/Spine/Pelvis Cervical Spine: normal cervical lordosis Thoracic/Lumbar Spine: thoracic and lumbar spine normal to inspection Skin General skin exam: no rashes or lesions noted Neuro General: patient oriented x3, gait normal, tone normal and moves all extremities Extrem General: Yes normal to inspection and Yes capillary refill normal Results AMB Urinalysis, Automated UA Leukoctes 0 Frandy/uL Last Edit by BRITNI Bond on 08/04/23 10:31 UA Nitrite Negative Last Edit by BRITNI Bond on 08/04/23 10:31 UA Urobilinogen 0.2 mg/dL Last Edit by BRITNI Bond on 08/04/23 10:3 1 UA Protein 0 mg/dL Last Edit by LISA BondA on 08/04/23 10:31 UA pH 6.5 Last Edit by Shaina Turk RMA on 08/04/23 10:31 UA Blood 0 Luigi/uL Last Edit by Shaina Turk, RMA on 08/04/23 10:31 UA Specific [place] 1.010 Last Edit by Shaina Turk A on 08/04/23 10: 31 UA Ketone Negative Last Edit by Shaina Truk A on 08/04/23 10:31 UA Bilirubin 0 mg/dL Last Edit by Shaina Turk RMA on 08/04/23 10:31 UA Glucose 0 mg/dL Last Edit by Shaina Turk A on 08/04/23 10:31 Results Reviewed Results Reviewed: Laboratory Last Values Urine pH (Auto) 6.5 08/04/23 10:30 Specific [place] (Auto) 1.010 08/04/23 10:30 Urine Protein (Auto) 0 mg/dL 08/04/23 10:30 Glucose (UA)(Auto) 0 mg/dL 08/04/23 10:30 Urine Ketones (Auto) Negative 08/04/23 10:30 Urine Blood (Auto) 0 Luigi/uL 08/04/23 10:30 Urine Nitrite (Auto) Negative 08/04/23 10:30 Urine Bilirubin (Auto) 0 mg/dL 08/04/23 10:30 Urine Urobilinogen (Auto) 0.2 mg/dL 08/04/23 10:30 Leukocyte Esterase (Auto) 0 Frandy/uL 08/04/23 10:30 Assessment & Plan Assessment & Plan (1) Benign prostatic hyperplasia (BPH) with post-void dribbling: Code(s): N40.1 - Benign prostatic hyperplasia with lower urinary tract symptoms; N39.43 - Post-void dribbling Category: Medical (2) Microscopic hematuria: Code(s): R31.29 - Other microscopic hematuria Category: Medical Plan P.r.n. follow-up Orders: Orders AMB Urinalysis Automated Today R31.29 - Other microscopic hematuria, Z13.9 - Encounter for screening, unspecified Patient Instructions: Imaging studies, laboratory and physical exam results were discussed and reviewed in detail. No major barriers to patient understanding were identified. An opportunity to ask questions regarding the treatment plan was provided. All questions were answered. The patient expressed understanding and agreement with the above treatment plan. The patient is aware they should contact our office by phone for worsening of their current condition or the appearance of new urologic symptoms. Compliance is encouraged with any medications and followup testing that is ordered. It is a privilege to participate in the urologic care of your patient. If you have any questions or concerns regarding treatment for the above conditions, or other urologic issues, please do not hesitate to contact me. The office telephone contact is [phone]. This note is constructed using voice recognition software. While every effort has been made to ensure accuracy greenhouse manager errors may have been included. Yours sincerely, Dr Sukhi Grubbs MD, [facility] - Urology Providers of Expert, Compassionate Care for the Genitourinary System Coding Level of Care Code Est Pt Level 4 (55657) Diagnoses Benign prostatic hyperplasia (BPH) with post-void dribbling N40.1; N39.43 Microscopic hematuria R31.29
== END 2023-08-04 11:01 | disposition home or self-care (01) ==
PROVIDERS: PCP Internal Medicine; Visit Provider Urology
DX: N40.1 Benign prostatic hyperplasia with lower urinary tract symptoms (principal); N39.43 Post-void dribbling; R31.29 Other microscopic hematuria; Z13.9 Encounter for screening, unspecified
CPT/HCPCS: 99213

== ENCOUNTER → 2023-08-04 09:45 | Outpatient (BNVA) | payer BC, SELFPAY | PROVIDERS: Visit Provider Urology | DX: N40.1 Benign prostatic hyperplasia with lower urinary tract symptoms (principal); R31.29 Other microscopic hematuria; N39.43 Post-void dribbling | CPT/HCPCS: 81003 ==

== ENCOUNTER 2024-03-08 09:55 | Outpatient (AMB) | payer BC, SELFPAY ==
--- OUTSIDE RECORDS SUMMARY | 2024-03-08 10:18 | XMS_ITS | Continuity of Care Document ---
Author Organization [facility] ter Address [address] [place] [id number]- Care Team Providers Care Processing Archivist Name Role Phone Sahil Kim MD Primary Care Physician [phone] Encounter 03/06/24 - 03/07/[address] [address]- Attending Physician: Not on Staff, Attending MD Referring Physician: Not on Staff, Referring MD Encounter Type: [facility] Allergies, Adverse Reactions, Alerts Substance Criticality Severity Reaction Reaction Severity Status Latex red skin Active Immunizations Given and Recorded Vaccine Date Status Refusal Reason SARS-CoV-2 (COVID-19) mRNA BNT-162b2 vac 06/18/20 Given SARS-CoV-2 (COVID-19) mRNA BNT-162b2 vac 05/28/20 Given Medications atorvastatin 20 mg oral tablet 1 tablet = 20 mg, By Mouth, Daily, # 30 tablet, 0 Refills, Maintenance, 08/30/23 11:07:00 AM EDT, Tablet, Partial fill upon patient request if the prescription is for a schedule II opioid drug. Start Date: 08/30/23 Status: Ordered Quantity: 30.0 Unit: tablet Repeat number: 1 gabapentin 300 mg oral capsule 300 mg, 1, capsule, By Mouth, 3 times a day, # 270 capsule, Refills 0, Maintenance, 08/30/23 11:21:00AM EDT, Partial fill upon patient request if the prescription is for a schedule II opioid drug. Start Date: 08/30/23 Status: Ordered Quantity: 270.0 Unit: capsule Repeat number: 1 ibuprofen 800 mg oral tablet 800 mg, 1, tablet, By Mouth, 3 times a day, PRN, # 90 tablet, Refills 0, Maintenance, Pain , Mild, 08/30/23 11:08:00 AM EDT, Partial fill upon patient request if the prescription is for a schedule II opioid drug. Start Date: 08/30/23 Status: Ordered Quantity: 90.0 Unit: tablet Repeat number: 1 omeprazole 40 mg oral enteric coated capsule 1 capsule = 40 mg, By Mouth, 2 times a day, # 30 capsule, 0 Refills, Maintenance, 04/10/13 9:14:02 AM EST, EC Capsule Start Date: 04/10/13 Status: Ordered Quantity: 30.0 Unit: capsule Repeat number: 1 Patient Care team information Care Team Personnel Name: Sahil Kim MD Position: [facility] Outreach Member Role: PCP Address: [address] [place] [address] Internal Medicine [address] Telecom: Care Team Related Persons Name: AUGUSTIN SNOW Insurance Providers Guarantor name: DAYTON SNOW Health Plan Information #: 1 Payer: HMO [employer] NETWORK Member Number: NA Policy Number: NA Group Number: NA
--- NOTE | 2024-03-08 10:23 | MHC.OFFVIS ---
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 Required: No Allergies No Known Allergies Allergy (Verified 03/08/24 10:27) [facility] Medical History Hematuria of unknown etiology Results AMB Urinalysis, Automated UA Leukoctes 0 Frandy/uL Last Edit by REBECCA Mabry on 03/08/24 10:51 UA Nitrite Negative Last Edit by Alex Hammer [facility] on 03/08/24 10:51 UA Urobilinogen 0.2 mg/dL Last Edit by Alex Hammer [facility] on 03/08/24 10:51 UA Protein 0 mg/dL Last Edit by Alex Hammer [facility] on 03/08/24 10:51 UA pH 6.0 Last Edit by Alex Hammer [facility] on 03/08/24 10:51 UA Blood 0 Luigi/uL Last Edit by Alex Hammer [facility] on 03/08/24 10:51 UA Specific [place] 1.020 Last Edit by Alex Hammer [facility] on 03/08/24 10:51 UA Ketone Negative Last Edit by Alex Hammer [facility] on 03/08/24 10:51 UA Bilirubin 0 mg/dL Last Edit by Alex Hammer [facility] on 03/08/24 10:51 UA Glucose 0 mg/dL Last Edit by Alex Hammer [facility] on 03/08/24 10:51 Results Reviewed Results Reviewed: Laboratory Last Values Urine pH (Auto) 6.0 03/08/24 10:50 Specific [place] (Auto) 1.020 03/08/24 10:50 Urine Protein (Auto) 0 mg/dL 03/08/24 10:50 Glucose (UA)(Auto) 0 mg/dL 03/08/24 10:50 Urine Ketones (Auto) Negative 03/08/24 10:50 Urine Blood (Auto) 0 Luigi/uL 03/08/24 10:50 Urine Nitrite (Auto) Negative 03/08/24 10:50 Urine Bilirubin (Auto) 0 mg/dL 03/08/24 10:50 Urine Urobilinogen (Auto) 0.2 mg/dL 03/08/24 10:50 Leukocyte Esterase (Auto) 0 Frandy/uL 03/08/24 10:50 Assessment & Plan Assessment & Plan (1) Groin pain: Code(s): R10.30 - Lower abdominal pain, unspecified Category: Medical Orders: Orders AMB Urinalysis Automated Today Z13.9 - Encounter for screening, unspecified Coding Diagnoses Groin pain R10.30
== END 2024-03-08 11:05 | disposition home or self-care (01) ==
PROVIDERS: PCP Registered Nurse; Visit Provider Urology
DX: Z13.9 Encounter for screening, unspecified (principal)

== ENCOUNTER → 2024-03-08 09:55 | Outpatient (BNVA) | payer BC, SELFPAY | PROVIDERS: PCP Registered Nurse; Visit Provider Urology | DX: R10.31 Right lower quadrant pain (principal); R31.29 Other microscopic hematuria | CPT/HCPCS: 81003 ==

== ENCOUNTER 2024-04-19 10:06 | Outpatient (AMB) | payer BC, SELFPAY ==
--- NOTE | 2024-04-19 10:08 | MHC.OFFVIS ---
Intake Visit Reasons: 6w follow up(Groin Pain) Intake Note: Patient is present for GROIN PAIN Urology Medication:NONE Antibiotic Allergy:NONE Blood Thinner:NONE Music Publicist Required: No Allergies No Known Allergies Allergy (Verified 04/19/24 10:11) HPI Comments Details: Felix is a pleasant male. He is a patient Dr. Kim. 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[employer] Nonsmoker Cytology occasional atypical Imaging - 11/19 CT urogram with large prostate No episodes of gross hematuria Adequate urinary parameters [facility] Medical History Hematuria of unknown etiology Review of Systems Const Denies chills and Denies fever(s) Card Reports no additional complaints and Denies syncope Resp Denies cough GI Denies abdominal pain and Denies heartburn Reports as per HPI and Denies change in libido Neuro Denies syncope Psych Denies change in libido Endo Denies change in libido Physical Exam Const General: cooperative, healthy appearing, comfortable and no acute distress Orientation/consciousness: patient oriented x3 HEENT Face and sinus: Yes normal facial exam Mouth: moist mucous membranes Neck Neck: Yes normal visual inspection, Yes full ROM and Yes trachea midline Chest Chest palpation & inspection: normal inspection of the chest Resp Effort & Inspection: normal respiratory effort, able to speak in complete sentences and no respiratory distress GI Inspection: Yes normal to inspection Back/Spine/Pelvis Cervical Spine: normal cervical lordosis Thoracic/Lumbar Spine: thoracic and lumbar spine normal to inspection Skin General skin exam: no rashes or lesions noted Neuro General: patient oriented x3, gait normal, tone normal and moves all extremities Extrem General: Yes normal to inspection and Yes capillary refill normal Results AMB Urinalysis, Automated UA Leukoctes 0 Frandy/uL Last Edit by REBECCA Mabry on 04/19/24 10:26 UA Nitrite Negative Last Edit by REBECCA Mabry on 04/19/24 10:26 UA Urobilinogen 3.5 mg/dL Last Edit by REBECCA Mabry on 04/19/24 10:26 UA Protein 0 mg/dL Last Edit by REBECCA Mabry on 04/19/24 10:26 UA pH 5.5 Last Edit by REBECCA Mabry on 04/19/24 10:26 UA Blood 0 Luigi/uL Last Edit by REBECCA Mabry on 04/19/24 10:26 UA Specific [place] 10 Last Edit by Alex Hammer [facility] on 04/19/24 10:26 UA Ketone Negative Last Edit by [facility] on 04/19/24 10:26 UA Bilirubin 0 mg/dL Last Edit by Alex Hammer [facility] on 04/19/24 10:26 UA Glucose 0 mg/dL Last Edit by Alex Hammer [facility] on 04/19/24 10:26 Results Reviewed Results Reviewed: Laboratory Last Values Urine pH (Auto) 5.5 04/19/24 10:24 Specific [place] (Auto) 10 04/19/24 10:24 Urine Protein (Auto) 0 mg/dL 04/19/24 10:24 Glucose (UA)(Auto) 0 mg/dL 04/19/24 10:24 Urine Ketones (Auto) Negative 04/19/24 10:24 Urine Blood (Auto) 0 Luigi/uL 04/19/24 10:24 Urine Nitrite (Auto) Negative 04/19/24 10:24 Urine Bilirubin (Auto) 0 mg/dL 04/19/24 10:24 Urine Urobilinogen (Auto) 3.5 mg/dL 04/19/24 10:24 Leukocyte Esterase (Auto) 0 Frandy/uL 04/19/24 10:24 Assessment & Plan Assessment & Plan (1) Microscopic hematuria: Code(s): R31.29 - Other microscopic hematuria Category: Medical (2) Benign prostatic hyperplasia (BPH) with post-void dribbling: Code(s): N40.1 - Benign prostatic hyperplasia with lower urinary tract symptoms; N39.43 - Post-void dribbling Category: Medical (3) Groin pain: Code(s): R10.30 - Lower abdominal pain, unspecified Category: Medical Plan Six-month follow-up office Orders: Orders AMB Urinalysis Automated Today Z13.9 - Encounter for screening, unspecified Patient Instructions: This note is constructed using voice recognition software. While every effort has been made to ensure accuracy vat house supervisor errors may have been included. Imaging studies, laboratory and physical exam results were discussed and reviewed in detail. No major barriers to patient understanding were identified. An opportunity to ask questions regarding the treatment plan was provided. All questions were answered. The patient expressed understanding and agreement with the above treatment plan. The patient is aware they should contact our office by phone for worsening of their current condition or the appearance of new urologic symptoms. Compliance is encouraged with any medications and followup testing that is ordered. It is a privilege to participate in the urologic care of your patient. If you have any questions or concerns regarding treatment for the above conditions, or other urologic issues, please do not hesitate to contact me. The office telephone contact is [phone]. Sincerely, Dr Sukhi Grubbs MD, HANNA[facility] - Urology Compassionate Specialist Care for the Genitourinary System Coding Level of Care Code Est Pt Level 3 (14864) Diagnoses Microscopic hematuria R31.29 Benign prostatic hyperplasia (BPH) with post-void dribbling N40.1; N39.43 Groin pain R10.30
--- OUTSIDE RECORDS SUMMARY | 2024-04-19 11:02 | XMS_ITS | Clinical Summary ---
Author Organization [facility], Address [address] [place] [address] Phone Care Team Providers Care Drying Rack Changer Name Role Phone Luz Lara [facility] Primary Care Provider Unavail able Allergies Active Allergy Reactions Criticality Noted Date Comments Latex Other (see comments) 09/02/2023 Red skin Medications atorvastatin (LIPITOR) 10 MG tablet Take 10 mg by mouth 1 (one) time each day Active omeprazole (PriLOSEC) [address] capsule Take 40 mg by mouth 1 (one) time each day Do not crush or chew. Active gabapentin (NEURONTIN) 300 MG capsule Take 300 mg by mouth in the morning and 300 mg in the evening and 300 mg before bedtime. Active acetaminophen (TYLENOL) 500 MG tablet Take 500 mg by mouth every 8 (eight) hours if needed for mild pain Active sucralfate (CARAFATE) 1 g tablet Take 1 g by mouth in the morning and 1 g at noon and 1 g in the evening and 1 g before bedtime. 11/30/2023 Active Active Problems Problem Noted Date Diagnosed Date Degeneration of lumbosacral intervertebral disc 08/22/2023 Overview (12/09/2023): Last Assessment & Plan: Referral was placed to Dr. Low and Dr. Ricardo in preparation for ALIF L5-S1. Surgery is scheduled for September 06 and he does have a preoperative appointment scheduled with both physicians. Spinal stenosis of cervical region 07/13/2023 Back pain 07/13/2023 Pain in lower limb 07/13/2023 Primary gonarthrosis, bilateral 2023 Overview (12/09/2023): Last Assessment & Plan: Currently managable with conservative measures. No longer using meloxicam. Very rare ibuprofen. Sciatica of right side 05/21/2022 Overview (12/09/2023): Last Assessment & Plan: Continue f/u with [facility] pain management. Will report new anal symptoms at visit next week Abscess of groin 11/11/2021 Overview (12/09/2023): Last Assessment & Plan: After examining the remnant of the abscess I determined that it was more of a fibrous strand than an abscess and no ID would bear any fruit. Instead he will finish up the antibiotic which she did this morning and if there is a reoccurrence we will call in some Bactrim double strength p.o. twice daily to cover for staph infection. Judging from the look of the remnant abscess does not appear and will come back. Patient will call though if that is not the case. Pain in left shoulder 08/17/2021 Overview (12/09/2023): Last Assessment & Plan: Unclear etiology Check xray Ibuprofen To PT Cervicalgia 08/17/2021 Overview (12/09/2023): Last Assessment & Plan: See above Bilateral tinnitus 05/15/2018 Overview (12/09/2023): Last Assessment & Plan: Please to audiology for hearing evaluation given worsening of tinnitus. Also discussed potential referral to ENT in the future Internal hemorrhoids 05/14/2018 Diverticular disease 05/14/2018 Reactive depression (situational) 05/14/2018 Overview (12/09/2023): Last Assessment & Plan: Well-managed without counseling or medications. H/O: musculoskeletal disease 12/08/2017 Overview (12/09/2023): Last Assessment & Plan: Continue OT exercises, good stretching. Mixed hyperlipidemia 03/25/2017 Overview (12/09/2023): Last Assessment & Plan: Continue atorvastatin as prescribed Gastro-esophageal reflux disease without esophag itis 03/25/2017 Overview (12/09/2023): Last Assessment & Plan: stable Social History Tobacco Use Types Packs/Day Years Used Date Smoking Tobacco: Never Tobacco Cessation:Counseling Given: Not Answered Alcohol Use Standard Drinks/Week Comments Yes 0 (1 standard drink = 0.6 oz pur e alcohol) social occ Sex and Gender Information Value Date Recorded Sex Assigned at Not on file Legal Sex Male 8:52 AM EDT Gender Identity Not on file Sexual Orientation Not on file Last Filed Vital Signs Vital Sign Reading Time Taken Comments Blood Pressure 100/63 12/09/2023 2:01 PM EDT Pulse 89 12/09/2023 2:01 PM EDT Temperature 36.2 ??C (97.2 ??F) 09/02/2023 3:05 PM ED T Respiratory Rate - - Oxygen Saturation 98% 12/09/2023 2:01 PM EDT Inhaled Oxygen Concentration - - Weight 84.8 kg (187 lb) 12/09/2023 2:01 PM EDT Height 188 cm (6' 2 ) 12/09/2023 2:01 PM EDT Body Mass Index 24.01 12/09/2023 2:01 PM EDT Plan of Treatment Health Maintenance Due Date Last Done Comments Pneumococcal Vaccine: Pediat rics (0 to 5 Years) and At-Risk Patients (6 to 64 Years) (1 of 2 - PCV) 1972 Hepatitis B Vaccine (1 of 3 - 19+ 3-dose series) 1985 Colorectal Cancer Screening: Annual FOBT 2015 Colorectal Cancer Screening: Colonoscopy 2015 Colorectal Cancer Screening: Sigmoidoscopy 2015 Influenza Vaccine (#1) 2023 12/10/2019, 2017 Insurance GENERIC WORKER'S COMP Attn: Workers Comp Claims VALE [id number] Care Teams Drying Rack Changer Relationship Specialty Start Date End Date Luz Lara FNP-BC PCP - General 07/13/23
== END 2024-04-19 11:12 | disposition home or self-care (01) ==
PROVIDERS: PCP Registered Nurse; Visit Provider Urology
DX: R31.29 Other microscopic hematuria (principal); N40.1 Benign prostatic hyperplasia with lower urinary tract symptoms; N39.43 Post-void dribbling; R10.30 Lower abdominal pain, unspecified; Z13.9 Encounter for screening, unspecified
CPT/HCPCS: 99213

== ENCOUNTER → 2024-04-19 10:06 | Outpatient (BNVA) | payer BC, SELFPAY | PROVIDERS: PCP Registered Nurse; Visit Provider Urology | DX: R31.29 Other microscopic hematuria (principal); N40.1 Benign prostatic hyperplasia with lower urinary tract symptoms; N39.43 Post-void dribbling; R10.30 Lower abdominal pain, unspecified | CPT/HCPCS: 81003 ==

== ENCOUNTER 2024-06-20 10:18 | Outpatient (AMB) | payer BC, SELFPAY ==
--- NOTE | 2024-06-20 10:23 | A.OFFVIS_ITS ---
Intake Visit Reasons: Groin injection Intake Note: Patient is present for GROIN INJECTION Urology Medication:NONE Antibiotic Allergy:NONE Blood Thinner:NONE Clinical Engineering Manager Required: No Allergies No Known Allergies Allergy (Verified 06/20/24 10:23) HPI Comments Details: Felix is a pleasant male. He is a patient Dr. Kim. 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 Pain was elicited on medial aspect of the inguinal ring at the insertion of the rectus tendon into the symphysis pubis. Alcohol prep was applied. A 22 gauge 3.5 in Chiba needle was advanced and under tactile guidance the tip was placed through rectus tendon insertion. Negative aspiration was performed. A fan-like distribution for injection of a total of 10 cc was made. The injection consisted of 5 cc of 0.5% bupivacaine, 5 cc of 1% lidocaine, and 40 mg Kenalog. The injection was well tolerated with only transient pain. CPT 29920 ICD M77.8 Enthesopathy [id number] Tendon Origin/Insertion Injection All charges added?: Procedure code (CPT) selection complete Office Meds Kenalog 40 mg/mL suspension for injection Performing Provider: Sukhi Grubbs MD Performing Location: [facility] Administered by: Sukhi Grubbs MD on 06/20/24 17:57 Dose Route Admin Location Dispensed Lot Number Expiration Date [facility] Surgical Lead 40 mg Tendon Sheath Inj. 1 mL lidocaine (PF) 10 mg/mL (1 %) injection solution Performing Provider: Sukhi Grubbs MD Performing Location: [facility] Administered by: Sukhi Grubbs MD on 06/20/24 17:57 Dose Route Admin Location Dispensed Lot Number Expiration Date [facility] Surgical Lead 10 mL Infiltration 10 mL Assessment & Plan Assessment & Plan (1) Benign prostatic hyperplasia (BPH) with post-void dribbling: Code(s): N40.1 - Benign prostatic hyperplasia with lower urinary tract symptoms; N39.43 - Post-void dribbling Category: Medical (2) Groin pain: Code(s): R10.30 - Lower abdominal pain, unspecified Category: Medical Plan Nursing follow-up 24 hours Orders: Orders AMB Tendon Injection Today R10.30 - Lower abdominal pain, unspecified Medications: New Kenalog (triamcinolone acetonide) 40 mg Tendon Sheath Inj. ONCE 1 mL 0RF NS R10.30 - Lower abdominal pain, unspecified lidocaine (PF) 10 mL Infiltration ONCE 10 mL 0RF R10.30 - Lower abdominal pain, unspecified Patient Instructions: This note is constructed using voice recognition software. While every effort has been made to ensure accuracy underwriting operations manager errors may have been included. Imaging studies, laboratory and physical exam results were discussed and reviewed in detail. No major barriers to patient understanding were identified. An opportunity to ask questions regarding the treatment plan was provided. All questions were answered. The patient expressed understanding and agreement with the above treatment plan. The patient is aware they should contact our office by phone for worsening of their current condition or the appearance of new urologic symptoms. Compliance is encouraged with any medications and followup testing that is ordered. It is a privilege to participate in the urologic care of your patient. If you have any questions or concerns regarding treatment for the above conditions, or other urologic issues, please do not hesitate to contact me. The office telephone contact is [phone]. Sincerely, Dr Sukhi Grubbs MD, [facility] - Urology Compassionate Specialist Care for the Genitourinary System Coding Level of Care Code Est Pt Level 3 (48074) Diagnoses Benign prostatic hyperplasia (BPH) with post-void dribbling N40.1; N39.43 Groin pain R10.30 CPT Codes Tendon Injection - Tendon Injection 2: [id number] Tendon Origin/Insertion Injection ([id number])
--- OUTSIDE RECORDS SUMMARY | 2024-06-20 12:02 | XMS_ITS | Clinical Summary ---
Author Organization [facility], Address [address] [place] [address] Phone Care Team Providers Care Wrapper Cashier Name Role Phone Lzu Lara [facility] Primary Care Provider Unavail able Allergies [...] Last Assessment & Plan: Continue f/u with [facility] pain management. Will report new anal symptoms [...] Health Maintenance Due Date Last Done Comments Hepatitis B Vaccine (1 of 3 - 19+ 3-dose series) 1985 Pneumococcal Vaccine: 50+ Ye ars (1 of 2 - PCV) 1985 Colorectal Cancer Screening: Annual FOBT 2015 Colorectal Cancer Screening: Colonoscopy 2015 Colorectal Cancer Screening: Sigmoidoscopy 2015 Influenza Vaccine (Season Ended) 2024 12/10/19 20, 12/06/2017 Insurance Generic Workers Comp Care Teams Wrapper Cashier Relationship Specialty Start Date End Date Luz Lara FNP-BC PCP - General 07/13/23
== END 2024-06-20 11:44 | disposition home or self-care (01) ==
LOC: HO.HUSH 10:19
PROVIDERS: PCP Registered Nurse; Visit Provider Urology
DX: N40.1 Benign prostatic hyperplasia with lower urinary tract symptoms (principal); N39.43 Post-void dribbling; R10.30 Lower abdominal pain, unspecified
CPT/HCPCS: 20551; 99213

== ENCOUNTER → 2024-06-20 10:18 | Outpatient (BNVA) | payer BC, SELFPAY | PROVIDERS: PCP Registered Nurse; Visit Provider Urology | DX: R10.30 Lower abdominal pain, unspecified (principal); M77.8 Other enthesopathies, not elsewhere classified; N40.1 Benign prostatic hyperplasia with lower urinary tract symptoms; N39.43 Post-void dribbling | CPT/HCPCS: 20551; J2003; J3300 ==

== ENCOUNTER 2024-08-07 14:46 | Outpatient (AMB) | payer BC, SELFPAY ==
--- NOTE | 2024-08-07 14:55 | A.OFFVIS_ITS ---
Intake Visit Reasons: groin pain Intake Note: Patient is present for GROIN PAIN Urology Medication:NONE Antibiotic Allergy:NONE Blood Thinner:NONE Raw Material Handler Required: No Allergies No Known Allergies Allergy (Verified 08/07/24 14:56) HPI Comments Details: Felix is a pleasant male. He is a patient Dr. Kim. 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[employer] Nonsmoker Cytology occasional atypical Imaging - 11/19 CT urogram with large prostate No episodes of gross hematuria Adequate urinary parameters [facility] Medical History Hematuria of unknown etiology Review of Systems Const Denies chills and Denies fever(s) Card Reports no additional complaints and Denies syncope Resp Denies cough GI Denies abdominal pain and Denies heartburn Reports as per HPI and Denies change in libido Neuro Denies syncope Psych Denies change in libido Endo Denies change in libido Physical Exam Const General: cooperative, healthy appearing, comfortable and no acute distress Orientation/consciousness: patient oriented x3 HEENT Face and sinus: Yes normal facial exam Mouth: moist mucous membranes Neck Neck: Yes normal visual inspection, Yes full ROM and Yes trachea midline Chest Chest palpation & inspection: normal inspection of the chest Resp Effort & Inspection: normal respiratory effort, able to speak in complete sentences and no respiratory distress GI Inspection: Yes normal to inspection Back/Spine/Pelvis Cervical Spine: normal cervical lordosis Thoracic/Lumbar Spine: thoracic and lumbar spine normal to inspection Skin General skin exam: no rashes or lesions noted Neuro General: patient oriented x3, gait normal, tone normal and moves all extremities Extrem General: Yes normal to inspection and Yes capillary refill normal Assessment & Plan Assessment & Plan (1) Benign prostatic hyperplasia (BPH) with post-void dribbling: Code(s): N40.1 - Benign prostatic hyperplasia with lower urinary tract symptoms; N39.43 - Post-void dribbling Category: Medical (2) Groin pain: Code(s): R10.30 - Lower abdominal pain, unspecified Category: Medical Plan Six-month follow-up Patient Instructions: This note is constructed using voice recognition software. While every effort has been made to ensure accuracy business analyst intern errors may have been included. Imaging studies, laboratory and physical exam results were discussed and reviewed in detail. No major barriers to patient understanding were identified. An opportunity to ask questions regarding the treatment plan was provided. All questions were answered. The patient expressed understanding and agreement with the above treatment plan. The patient is aware they should contact our office by phone for worsening of their current condition or the appearance of new urologic symptoms. Compliance is encouraged with any medications and followup testing that is ordered. It is a privilege to participate in the urologic care of your patient. If you have any questions or concerns regarding treatment for the above conditions, or other urologic issues, please do not hesitate to contact me. The office telephone contact is [phone]. Sincerely, Dr Sukhi Grubbs MD, [facility] - Urology Compassionate Specialist Care for the Genitourinary System Coding Level of Care Code Est Pt Level 3 (98847) Diagnoses Benign prostatic hyperplasia (BPH) with post-void dribbling N40.1; N39.43 Groin pain R10.30
--- OUTSIDE RECORDS SUMMARY | 2024-08-07 17:50 | XMS_ITS | Clinical Summary ---
Author Organization [facility], Address [address] [place] [address] Phone Care Team Providers Care Textiles Sales Representative Name Role Phone Luz Lara [facility] Primary Care Provider Unavail able Allergies Active [...] Last Assessment & Plan: Continue f[place] with [facility] [place]. Will report new anal symptoms [...] 12/06/2017 Insurance Generic Workers Comp Care Teams Textiles Sales Representative Relationship Specialty Start Date End Date Luz Lara FNP-BC PCP - General 07/13/23
== END 2024-08-07 15:33 | disposition home or self-care (01) ==
LOC: HO.HUSH 14:47
PROVIDERS: PCP Registered Nurse; Visit Provider Urology
DX: N40.1 Benign prostatic hyperplasia with lower urinary tract symptoms (principal); N39.43 Post-void dribbling; R10.30 Lower abdominal pain, unspecified
CPT/HCPCS: 99213

== ENCOUNTER 2024-12-28 10:18 | Outpatient (AMB) | payer BC, SELFPAY ==
--- NOTE | 2024-12-28 10:22 | MHC.OFFVIS ---
Intake Visit Reasons: groin injection Intake Note: Patient is present for Groin Injection Urology Med: Meloxicam Antibiotic Allergy:None Blood Thinner: None Gastrointestinal Technician Required: No Accompanied by: Self / Same As Patient Allergies No Known Allergies Allergy (Verified 08/07/24 14:56) HPI Comments Details: Felix is a pleasant male. He is a patient Dr. Kim. 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 Gather Nonsmoker Cytology occasional atypical Imaging - 11/19 CT urogram with large prostate No episodes of gross hematuria Adequate urinary parameters PFSH Medical History Hematuria of unknown etiology Review of Systems Const Denies chills and Denies fever(s) Card Reports no additional complaints and Denies syncope Resp Denies cough GI Denies abdominal pain and Denies heartburn Reports as per HPI and Denies change in libido Neuro Denies syncope Psych Denies change in libido Endo Denies change in libido Physical Exam Const General: cooperative, healthy appearing, comfortable and no acute distress Orientation/consciousness: patient oriented x3 HEENT Face and sinus: Yes normal facial exam Mouth: moist mucous membranes Neck Neck: Yes normal visual inspection, Yes full ROM and Yes trachea midline Chest Chest palpation & inspection: normal inspection of the chest Resp Effort & Inspection: normal respiratory effort, able to speak in complete sentences and no respiratory distress GI Inspection: Yes normal to inspection Back/Spine/Pelvis Cervical Spine: normal cervical lordosis Thoracic/Lumbar Spine: thoracic and lumbar spine normal to inspection Skin General skin exam: no rashes or lesions noted Neuro General: patient oriented x3, gait normal, tone normal and moves all extremities Extrem General: Yes normal to inspection and Yes capillary refill normal Assessment & Plan Assessment & Plan (1) Benign prostatic hyperplasia (BPH) with post-void dribbling: Code(s): N40.1 - Benign prostatic hyperplasia with lower urinary tract symptoms; N39.43 - Post-void dribbling Category: Medical (2) Groin pain: Code(s): R10.30 - Lower abdominal pain, unspecified Category: Medical Plan P.r.n. follow-up Patient Instructions: This note is constructed using voice recognition software. While every effort has been made to ensure accuracy honest john rocket crew member errors may have been included. Imaging studies, laboratory and physical exam results were discussed and reviewed in detail. No major barriers to patient understanding were identified. An opportunity to ask questions regarding the treatment plan was provided. All questions were answered. The patient expressed understanding and agreement with the above treatment plan. The patient is aware they should contact our office by phone for worsening of their current condition or the appearance of new urologic symptoms. Compliance is encouraged with any medications and followup testing that is ordered. It is a privilege to participate in the urologic care of your patient. If you have any questions or concerns regarding treatment for the above conditions, or other urologic issues, please do not hesitate to contact me. The office telephone contact is [phone]. Sincerely, Dr Sukhi Grubbs MD, [facility] - Urology Compassionate Specialist Care for the Genitourinary System Coding Level of Care Code Est Pt Level 3 (93897) Diagnoses Benign prostatic hyperplasia (BPH) with post-void dribbling N40.1; N39.43 Groin pain R10.30
--- OUTSIDE RECORDS SUMMARY | 2024-12-28 11:37 | XMS_ITS | Encounter Summary ---
Author Organization [facility] Address [address] [place] [address] [place] [address] Phone Care Team Providers Care Theatrical Agent Name Role Phone Sahil Kim MD Unavailable [phone] William Poole PA-C Primary Care Provider [phone] Manan Garcia MD Unavailable Encounter Details Date Type Department Care Team (Late st Contact Info) Description 12/14/2024 Orders Only [facility] [place] Internal Medicine [address] [facility] [place] [address] Provider, MD Moshe [address] [place] [address] Social History Tobacco Use Types Packs/Day Years Used Date Smoking Tobacco: Never Passive Smoke Exposure: Current Smokeless Tobacco: Never Alcohol Use Standard Drinks/Week Comments Yes 0 (1 standard drink = 0.6 oz pur e alcohol) 1-2 drinks, monthly or less Child or Family Care Answer Date Record ed Do you have problems with on e of the following making it difficult for you to work, study, or receive health care? No 03/27/2024 Education Answer Date Recorded Are you interested in help w ith more adult education (for example, completing high school, GED, job training, learning the Estonian language, technical skills, or developing parenting skills)? No 03/27/2024 Are you concerned about learning? Not on file 03/27/2024 No 03/27/2024 Yes 03/27/2024 Food Answer Date Recorded Within the past 6 months we worried whether our food would run out before we got money to buy more. Never True 03/27/2024 Within the past 6 months the food we bought just didn't last and we didn't have enough money to get more. Never True Residential Stability Answer Date Recor ded What is your housing situation today? I have antonio olivares 03/27/2024 How many times have you move d in the past 12 months? Zero (I did not move) 03/27/2024 Paying for Meds Answer Date Recorded Do you have trouble paying for medicines? No 03/27/2024 Paying Utility Bills Answer Date Record ed Do you have trouble paying your heating or elect ricity bill? No 03/27/2024 Transportation Answer Date Recorded Has the lack of transportati on kept you from medical appointments or from getting medications? No 03/27/2024 Unemployment Answer Date Recorded Are you currently unemployed or working on a part-time or temporary basis, and looking for work? No 07/13/2021 Digital Access Answer Date Recorded No 03/27/2024 Yes 03/27/2024 Do you have reliable internet access at home? Ye s 03/27/2024 Do you have a device (e.g., phone, tablet, computer) with a working camera? Yes 03/27/2024 Intimate Partner Violence Answer Date R ecorded Denied Basic Needs Not on file 06/28/2024 In the past 12 months have y ou been in a relationship with a person who hurts, threatens, or tries to control you? No 06/28/2024 Worried food would run out Not on file 06/28 In the past 12 months have y ou been in a relationship with a person who hurts, threatens, or tries to control you? No 06/28/2024 Sex and Gender Information Value Date Recorded Sex Assigned at Male 08/06/2021 4:14 PM EDT Legal Sex Male 10:32 PM EDT Gender Identity Male 08/06/2021 4:14 PM EDT Sexual Orientation Straight 08/06/2021 4: 14 PM EDT documented as of this encounter Plan of Treatment Upcoming Encounters Date Type Department Care Team (Late st Contact Info) Description 01/10/2025 7:30 AM EST Office Visit [facility] [address] Floor, [address] [place] [address] Yue Jesus PA-C [address] [place] [address] 03/04/2025 8:40 AM EST Office Visit [facility] Internal Medicine [address] [place], [place] [phone] William Poole PA-C [address] [place], [place] documented as of this encounter Procedures Procedure Name Priority Date/Time Associated Diagnosis Comments OUTSIDE MONITOR Routine 12/14/2024 3:15 PM EDT documented in this encounter Results * Outside Monitor Report Only (12/14/2024 3:15 PM EDT) us Historical Provider CV CARDIAC SERVICES ORDER STEPHEN Final Result documented in this encounter Visit Diagnoses Not on filedocumented in this encounter Additional Health Concerns Assessment Noted Time PHQ-9 Depression Total Score: 7 01/11/20 23 4:03 PM EST PHQ-2 Depression Total Score: 1 06/29/19 25 1:49 PM EDT documented as of this encounter Care Teams Theatrical Agent Relationship Specialty Start Date End Date William Poole PA-C [address] [place], [place] PCP - General Physician Supervisor Microfilm Duplicating Unit 04/23/24 Sahil Kim MD [address] [place], [place] Insurance Assigned Provider 07/01/18 Manan Garcia MD [address] [place] [address] [email or web address] Insurance Assigned Provider 10/06/24 documented as of this encounter Additional Source Comments The information contained in this document represents components of the legal health record. It is not the complete legal health record.[facility]
--- OUTSIDE RECORDS SUMMARY | 2024-12-28 11:37 | XMS_ITS | Encounter Summary ---
Author Organization [facility] Address [address] [place] [address] [place] [phone] Phone Care Team Providers Care Shaper Operator Name Role Phone Sahil Kim MD Unavailable Sahil Kim MD Unavailable [phone] Sahil Kim MD Primary Care Provider Luz Lara NURSING HOME ASSISTANT Primary Care Provider Tea Chapman MD Unavailable William Poole PA-C Primary Care Provider Manan Garcia MD Unavailable Encounter Details Date Type Department Care Team (Late st Contact Info) Description 12/28/2022 Telephone [facility] Internal Medicine [address] [place], [place] [phone] Sahil Kim MD [address] [place] [address] [email or web address] Social History Tobacco Use Types Packs/Day Years Used Date Smoking Tobacco: Never Passive Smoke Exposure: Current Smokeless Tobacco: Never Alcohol Use Standard Drinks/Week Comments Yes 0 (1 standard drink = 0.6 oz pur e alcohol) couple times a year Child or Family Care Answer Date Record ed Do you have problems with on e of the following making it difficult for you to work, study, or receive health care? No 07/16/2022 Education Answer Date Recorded Are you interested in help w ith more adult education (for example, completing high school, GED, job training, learning the Divehi language, technical skills, or developing parenting skills)? No 07/16/2022 Are you concerned about learning? Not on file 07/16/2022 No 07/16/2022 Yes 07/16/2022 Food Answer Date Recorded Within the past 6 months we worried whether our food would run out before we got money to buy more. Never True 07/16/2022 Within the past 6 months the food we bought just didn't last and we didn't have enough money to get more. Never True Residential Stability Answer Date Recor ded What is your housing situation today? I have antonio sing 07/16/2022 How many times have you move d in the past 12 months? Zero (I did not move) 07/16/2022 Paying for Meds Answer Date Recorded Do you have trouble paying for medicines? No 07/16/2022 Paying Utility Bills Answer Date Record ed Do you have trouble paying your heating or elect ricity bill? No 07/16/2022 Transportation Answer Date Recorded Has the lack of transportati on kept you from medical appointments or from getting medications? No 07/16/2022 Unemployment Answer Date Recorded Are you currently unemployed or working on a part-time or temporary basis, and looking for work? No 07/13/2021 Digital Access Answer Date Recorded No 07/16/2022 Yes 07/16/2022 Do you have reliable internet access at home? Ye s 07/16/2022 Do you have a device (e.g., phone, tablet, computer) with a working camera? Yes 07/16/2022 Intimate Partner Violence Answer Date R ecorded Denied Basic Needs Not on file 07/16/2022 In the past 12 months have y ou been in a relationship with a person who hurts, threatens, or tries to control you? No 07/16/2022 Worried food would run out Not on file 07/16 In the past 12 months have y ou been in a relationship with a person who hurts, threatens, or tries to control you? No 07/16/2022 Sex and Gender Information Value Date Recorded Sex Assigned at Male 08/06/2021 4:14 PM EDT Legal Sex Male 10:32 PM EDT Gender Identity Male 08/06/2021 4:14 PM EDT Sexual Orientation Straight 08/06/2021 4: 14 PM EDT documented as of this encounter Plan of Treatment Upcoming Encounters Date Type Department Care Team (Late st Contact Info) Description 01/10/2025 7:30 AM EST Office Visit [facility] [address] [facility] 3rd Floor, [address] [place] [address] Yue Jesus PA-C [address] [place] [address] [email or web address] 03/04/2025 8:40 AM EST Office Visit [facility] Internal Medicine [address] [place] [address] William Poole PA-C [address] [place] [address] [email or web address] documented as of this encounter Visit Diagnoses Not on filedocumented in this encounter Additional Health Concerns Infection Onset Date Last Indicated Resolved Time COVID-19 01/25/2023 01/25/2023 02/15/2023 1:21 AM EST Assessment Noted Time PHQ-9 Depression Total Score: 15 023 4:39 PM EDT PHQ-2 Depression Total Score: 3 11/30/19 23 4:39 PM EDT documented as of this encounter Care Teams Shaper Operator Relationship Specialty Start Date End Date Sahil Kim MD [address] [place] [address] [email or web address] PCP - General Internal Medicine 08/11/22 03/22/23 Luz Lara FNP [address] [facility] [address]. [address] [place] [address] PCP - General Nurse Practitioner 03/23/23 04/22/24 William Poole PA-C [address] [place] [address] PCP - General Physician Arboriculturist 04/23/24 Sahil Kim MD [address] [place] [address] [phone] Insurance Assigned Provider 07/01/18 Sahil Kim MD [address] [place] [address] [phone] Insurance Assigned Provider 06/04/23 12/04/23 Tea Chapman MD [address] [place] [address] [email or web address] Insurance Assigned Provider 12/04/23 10/06/24 Manan Garcia MD [address] [place] [phone] Insurance Assigned Provider 10/06/24 documented as of this encounter Additional Source Comments The information contained in this document represents components of the legal health record. It is not the complete legal health record.[facility]
--- OUTSIDE RECORDS SUMMARY | 2024-12-28 11:37 | XMS_ITS | Encounter Summary ---
Author Organization [facility] Address [address] [place] [address] [address] [place] [address] Phone Care Team Providers Care Tool And Die Maker/Designer Name Role Phone Sahil Kim MD Unavailable Sahil Kim MD Unavailable [phone] Luz Lara Primary Care Provider Tea Chapman MD Unavailable William Poole PA-C Primary Care Provider Manan Garcia MD Unavailable Reason for Visit * Reason Onset Date Comments insurance referral 08/18/2023 Encounter Details Date Type Department Care Team (Late st Contact Info) Description 08/18/2023 Telephone [facility] [address] [facility] [address] [place], [place] [phone] Luz Lara FNP [address] [facility] [address] [place] [address] [email or web address] insurance referral Social History Tobacco Use Types Packs/Day Years Used Date Smoking Tobacco: Never Passive Smoke Exposure: Current Smokeless Tobacco: Never Alcohol Use Standard Drinks/Week Comments Yes 0 (1 standard drink = 0.6 oz pure alcohol) couple times a year; 10 beers a year Child or Family Care Answer Date Record ed Do you have problems with on e of the following making it difficult for you to work, study, or receive health care? No 07/16/2022 Education Answer Date Recorded Are you interested in help w ith more adult education (for example, completing high school, GED, job training, learning the Palestinian language, technical skills, or developing parenting skills)? [...] PM EDT documented as of this encounter Progress Notes * Dulce Lopez RN - 08/19/2023 2:41 PM EDT S/W [facility] at [facility]. She states the referral is essentially for a meet and greet appointment. Pt is going to be having back surgery with Dr. Oracio Low, and Dr. Ricardo will be assisting him with the surgery. His upcoming appointment is to meet Dr. Ricardo and go over what parts of the surgery he will be assisting in. To PCP for review and signature of referral. * Kamala Villatoro - 08/18/2023 4:00 PM EDT Referral Request 1. Name of the office where the patient has been seen/requests to be seen: [facility] 2. Reason for referral/specialist appointment and the diagnosis code: M51.37 2A. Have you seen this provider before for this same problem? YES/NO: no 2B. If this is a new problem, is your PCP aware of your symptoms? YES/NO: yes 3. Date of appointment(s): 09/02/2023 4. Name of specialist provider: Dr. Sukhi Ricardo 5. NPI number to enter for referral authorization (enter n/a if not available): [id number] 6. Number of visits requested for referral: 5 7. Fax number of specialist office to send referral authorization: [phone] documented in this encounter Plan of Treatment Upcoming Encounters Date Type Department Care Team (Late st Contact Info) Description 01/10/2025 7:30 AM EST Office Visit [facility] [address], [address] [place] [address] Yue Jesus PA-C [address] [place] [address] 03/04/2025 8:40 AM EST Office Visit [facility] Internal Medicine [address] [place] [address] William Poole PA-C [address] [place] [phone] [email or web address] documented as of this encounter Visit Diagnoses Not on filedocumented in this encounter Additional Health Concerns Assessment Noted Time PHQ-9 Depression Total Score: 7 01/11/20 4:03 PM EST PHQ-2 Depression Total Score: 0 01/11/20 4:03 PM EST documented as of this encounter Care Teams Tool And Die Maker/Designer Relationship Specialty Start Date End Date Luz Lara FNP [address] [place] [address] PCP - General Nurse Practitioner 03/23/23 04/22/24 William Poole PA-C [address] [place] [address] PCP - General Physician Stationary Engineer Apprentice 04/23/24 Sahil Kim MD [address] [place] [phone] Insurance Assigned Provider 07/01/18 Sahil Kim MD [address] [place] [phone] Insurance Assigned Provider 06/04/23 12/04/23 Tea Chapman MD [address] [address] [email or web address] Insurance Assigned Provider 12/04/23 10/06/24 Manan Garcia MD [address] [place] [address] [email or web address] Insurance Assigned Provider 10/06/24 documented as of this encounter Additional Source Comments The information contained in this document represents components of the legal health record. It is not the complete legal health record.[facility]
--- OUTSIDE RECORDS SUMMARY | 2024-12-28 11:37 | XMS_ITS | Encounter Summary ---
Author Organization [facility] Address [address] [place] [address] [place] [address] Phone Care Team Providers Care Utility Bill Collection Clerk Name Role Phone Sahil Kim MD Unavailable William Poole PA-C Primary Care Provider [phone] Manan Garcia MD Unavailable Encounter Details Date Type Department Care Team (Late st Contact Info) Description 12/20/2024 Orders Only [facility] [place] Internal Medicine [address] [facility] [place] [address] Provider, MD Moshe [address] [place] [address] Social History Tobacco Use Types Packs/Day [...] high school, GED, job training, learning the Lithuanian language, technical skills, or developing parenting skills)? [...] Description 01/10/2025 7:30 AM EST Office Visit [facility] [address], [address] [place] [address] Yue Jesus PA-C [address] [place] [address] 03/04/2025 8:40 AM EST Office Visit [facility] Internal Medicine [address] [place] [address] William Poole PA-C [address] [place] [address] documented as of this encounter Procedures Procedure Name Priority Date/Time Associated Diagnosis Comments OUTSIDE MONITOR Routine 12/15/2024 4:27 PM EDT OUTSIDE MONITOR Routine 12/01/2024 4:33 PM EDT OUTSIDE MONITOR Routine 11/26/2024 4:26 PM EDT OUTSIDE MONITOR Routine 11/26/2024 4:25 PM EDT OUTSIDE MONITOR Routine 11/24/2024 4:25 PM EDT documented in this encounter Results * Outside Monitor Report Only (12/15/2024 4:27 PM EDT) Historical Provider MD [facility] ORDER STEPHEN Final Result * Outside Monitor Report Only (12/01/2024 4:33 PM EDT) Historical Provider MD CV CARDIAC SERVICES ORDER STEPHEN Final Result * Outside Monitor Report Only (11/26/2024 4:26 PM EDT) Historical Provider MD CV CARDIAC SERVICES ORDER STEPHEN Final Result * Outside Monitor Report Only (11/26/2024 4:25 PM EDT) Historical Provider MD CV CARDIAC SERVICES ORDER STEPHEN Final Result * Outside Monitor Report Only (11/24/2024 4:25 PM EDT) Historical Provider MD CV CARDIAC SERVICES ORDER STEPHEN Final Result documented in this encounter Visit Diagnoses Not on filedocumented in this encounter Additional Health Concerns Assessment Noted Time PHQ-9 Depression Total Score: 7 01/11/20 23 4:03 PM EST PHQ-2 Depression Total Score: 1 06/29/19 25 1:49 PM EDT documented as of this encounter Care Teams Utility Bill Collection Clerk Relationship Specialty Start Date End Date William Poole PA-C [address] [place] [address] PCP - General Physician Homemaking Rehabilitation Consultant 04/23/24 Sahil Kim MD [address] [place] [address] Insurance Assigned Provider 07/01/18 Manan Garcia MD [address] [place] [phone] Insurance Assigned Provider 10/06/24 documented as of this encounter Additional Source Comments The information contained in this document represents components of the legal health record. It is not the complete legal health record.[facility]
--- OUTSIDE RECORDS SUMMARY | 2024-12-28 11:37 | XMS_ITS | Encounter Summary ---
Author Organization [facility] Address [address] [facility] [address] [facility] [address] [place] [address] Phone Care Team Providers Care Technical Adjuster Name Role Phone Sahil Kim MD Unavailable [phone] William Poole PA-C Primary Care Provider [phone] Manan Garcia MD Unavailable Reason for Visit * Reason Onset Date Comments Care Coordination 12/25/2024 Encounter Details Date Type Department Care Team (Late st Contact Info) Description 12/25/2024 Telephone [facility] [address] [place], [place] [phone] Leni Galicia [address] [place] [address] [email or web address] Care Coordination Social History Tobacco Use Types Packs/Day Years [...] high school, GED, job training, learning the French language, technical skills, or developing parenting skills)? [...] housing situation today? I have antonio sing 03/27/2024 How many times have you move [...] as of this encounter Progress Notes * Leni Galicia - 12/25/2024 11:19 AM EDT Social Work Progress Note - Initial Outreach Attempt Felix Franco is a 59 y.o. male referred to Social Work due to reports of depression and caregiver burnout, concerns which were reported during an office visit for his partner in recent weeks. Chart review completed and Social Work has completed supportive outreach via telephone. Felix Franco was unavailable and a message was left encouraging a return call. Social Work remains available as needed for on-going support and case management. Recommendations and Follow-Up Plan Social Work is available as needed. Social Work will follow-up again if Fabiano does not call back. documented in this encounter Plan of Treatment Upcoming Encounters Date Type Department Care Team (Late st Contact Info) Description 01/10/2025 7:30 AM EST Office Visit [facility] [address] 3[address] Floor, [address] [place] [address] Yue Jesus PA-C [address] [place] [address] [email or web address] 03/04/2025 8:40 AM EST Office Visit [facility] Internal Medicine [address] [place] [address] William Poole PA-C [address] [place] [address] documented as of this encounter Visit Diagnoses Not on filedocumented in this encounter Additional Health Concerns Assessment Noted Time PHQ-9 Depression Total Score: 7 01/11/20 23 4:03 PM EST PHQ-2 Depression Total Score: 1 06/29/19 25 1:49 PM EDT documented as of this encounter Care Teams Technical Adjuster Relationship Specialty Start Date End Date William Poole PA-C [address] [place] [address] [email or web address] PCP - General Physician Digital Media Coordinator 04/23/24 Sahil Kim MD [address] [place] [address] [email or web address] Insurance Assigned Provider 07/01/18 Manan Garcia MD [address] [place] [address] [email or web address] Insurance Assigned Provider 10/06/24 documented as of this encounter Additional Source Comments The information contained in this document represents components of the legal health record. It is not the complete legal health record.[facility]
--- OUTSIDE RECORDS SUMMARY | 2024-12-28 11:37 | XMS_ITS | Patient Health Record ---
Author Organization [facility] Address [address] [place] [address] Care Team Providers Care Treating Inspector Name Role Phone Sahil Kim MD Primary Care Provider Esteban Cisneros [phone] Reason For Referral No Information Medications Medication SIG (Take, Route, Fr equency, Duration) Notes Start Date End Date Status Tums as needed Active Omeprazole 40 MG 1 capsule Orally Twice a day Active Social History Tobacco Use: Social History Observation Description Date Details (start date - stop date) Never Smoker NA - NA Tobacco Use/Smoking Question Answer Notes Patient is a nonsmoker Alcohol Screen Question Answer Notes Did you have a drink containing alcohol in the p ast year? No Points 0 Interpretation Negative Section Notes: Nonsmoker; no sig alcohol Problems Problem Type SNOMED Code ICD Code Onset Dates Problem Status W/U Status Risk Notes Problem Screening for malignant neoplasm of colon (722095865) Encounter for screening for malignant neoplasm of colon (Z12.11) Active confirmed Problem Cough (18467278) Cough (R05) Active confirmed Problem Gastroesophageal reflux disease (155218324) Gastroesophageal reflux disease, esophagitis presence not specified (K21.9) Active confirmed Plan Of Treatment Pending Test Test Name Order Date GI BIOPSY 09/09/2017 Future Test Test Name Order Date UPPER GI ENDOSCOPY 07/21/2017 COLONOSCOPY 07/21/2017 Insurance Providers Payer Name Payer Address Payer Phone Subscriber Number Group Number Insured Name Patient Relationship to Insured Coverage Start Date Coverage End Date [facility] [employer] [facility] [address] [place] [address] [id number] Self - patient is the insured Medical (General) History Medical History History ICD Code Denies MO,DM,CVA,Lung disease,renal dise ase GERD--EGD 06/2006 --no sig. 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
--- OUTSIDE RECORDS SUMMARY | 2024-12-28 11:38 | XMS_ITS | Encounter Summary ---
Author Organization [facility] Address [address] [place] [address] Phone Care Team Providers Care Billet Bed Operator Name Role Phone Sahil Kim MD Unavailable William Poole PA-C Primary Care Provider [phone] Manan Garcia MD Unavailable Reason for Referral * Hospital - Outpatient - Closed Specialty Diagnoses / Procedures Referred By Susan wilhelm Referred To Contact Diagnoses Palpitations Procedures MCT (Mobile Cardiac Telemetry) Event Monitor Looping up to 30 Days William Poole PA-C [address] [place] [address] Phone: tel: fax: mailto: Referral ID Status Reason Start Date Expiration Date Visits Re quested Visits Authorized [id number] Closed 10/30/2024 10/30/2025 1 1 Encounter Details Date Type Department Care Team (Latest Contact Info) Description 11/20/2024 Ancillary Orders [facility] Internal Medicine [address] [place], [place] [phone] William Poole PA-C [address] [place] [address] [email or web address] Mixed hyperlipidemia (Primary Dx); Palpitations; Right foot pain; Prediabetes Social History Tobacco Use Types Packs/Day Years [...] high school, GED, job training, learning the German language, technical skills, or developing parenting skills)? [...] 4:14 PM EDT Sexual Orientation Straight 08/06/2021 4 :14 PM EDT documented as of this encounter Plan of Treatment Upcoming Encounters Date Type Department Care Team (Late st Contact Info) Description 01/10/2025 7:30 AM EST Office Visit [facility] [address] [facility] 3rd Floor, [address] [place] [address] Yue Jesus PA-C [address] [place] [address] 03/04/2025 8:40 AM EST Office Visit [facility] Internal Medicine [address] [place] [address] William Poole PA-C [address] [place] [address] documented as of this encounter Results * MCT (Mobile Cardiac Telemetry) (12/20/2024 3:14 PM EDT) Anatomical Region Laterality Modality Heart Other Narrative 12/21/2024 10:00 AM EDT Impression: The indication for the study is palpitations. The predominant rhythm is normal sinus rhythm there was no evidence of obvious atrial fibrillation or flutter. There were brief episodes of tachycardia between 130 and 140 bpm that the computer was calling sinus tachycardia but looked like a short burst of supraventricular tachycardia. There was no evidence of heart block or VT. us William Poole PA-C [facility] ORDERABLE S Final Result documented in this encounter Visit Diagnoses Diagnosis Palpitations Mixed hyperlipidemia- Primary Palpitations Right foot pain Pain in soft tissues of limb Prediabetes Other abnormal glucose documented in this encounter Additional Health Concerns Assessment Noted Time PHQ-9 Depression Total Score: 7 01/11/20 23 4:03 PM EST PHQ-2 Depression Total Score: 1 06/29/19 1:49 PM EDT documented as of this encounter Care Teams Billet Bed Operator Relationship Specialty Start Date End Date William Poole PA-C [address] [place] [address] [email or web address] PCP - General Physician Knitting Machine Operator 04/23/24 Sahil Kim MD [address] [place] [address] Insurance Assigned Provider 07/01/18 Manan Garcia MD [address] [place] [address] [email or web address] Insurance Assigned Provider 10/06/24 documented as of this encounter Additional Source Comments The information contained in this document represents components of the legal health record. It is not the complete legal health record.[facility]
--- OUTSIDE RECORDS SUMMARY | 2024-12-28 11:38 | XMS_ITS | Encounter Summary ---
Author Organization [facility] Address [address] [place] [address] [place] [address] Phone Care Team Providers Care Fringing Machine Operator Name Role Phone Sahil Kim MD Unavailable William Poole PA-C Primary Care Provider [phone] Manan Garcia MD Unavailable Reason for Visit * Reason Onset Date Comments hand splint 11/26/2024 Encounter Details Date Type Department Care Team (Late st Contact Info) Description 11/26/2024 Telephone [facility] Internal Medicine [address] [place], [place] [phone] William Poole PA-C [address] [place], [place] [phone] [email or web address] hand splint Social History Tobacco Use Types Packs/Day Years [...] high school, GED, job training, learning the Amharic language, technical skills, or developing parenting skills)? [...] as of this encounter Progress Notes * Jordi Mireles - 11/26/2024 5:07 PM EDT Images from the original note were not included. William Poole PA-C You4 minutes ago (5:01 PM) JM He should wear it all the time if he is in significant amount of discomfort. He may take it off to shower and for short breaks. LVM relaying provider message. * Jordi Mireles - 11/26/2024 3:53 PM EDT Patient left voicemail that he saw provider who suggested he wear hand splints but he is unsure when he is supposed to be wearing them. Please advise. documented in this encounter Plan of Treatment Upcoming Encounters Date Type Department Care Team (Late st Contact Info) Description 01/10/2025 7:30 AM EST Office Visit [facility] [address] [facility] 3rd Floor, [address] [place] [address] Yue Jesus PA-C [address] [place] [address] 03/04/2025 8:40 AM EST Office Visit [facility] Internal Medicine [address] [place] [address] William Poole PA-C [address] [place] [address] documented as of this encounter Visit Diagnoses Not on filedocumented in this encounter Additional Health Concerns Assessment Noted Time PHQ-9 Depression Total Score: 7 01/11/20 23 4:03 PM EST PHQ-2 Depression Total Score: 1 06/29/19 25 1:49 PM EDT documented as of this encounter Care Teams Fringing Machine Operator Relationship Specialty Start Date End Date William Poole PA-C [address] [place] [address] [email or web address] PCP - General Physician Fringing Machine Operator 04/23/24 Sahil Kim MD [address] [place] [address] [email or web address] Insurance Assigned Provider 07/01/18 Manan Garcia MD [address] [place] [address] [email or web address] Insurance Assigned Provider 10/06/24 documented as of this encounter Additional Source Comments The information contained in this document represents components of the legal health record. It is not the complete legal health record.[facility]
--- OUTSIDE RECORDS SUMMARY | 2024-12-28 11:38 | XMS_ITS | Encounter Summary ---
Author Organization [facility] Address [address] [place] [address] [place] [address] Phone Care Team Providers Care Door Liner Name Role Phone Sahil Kim MD Unavailable [phone] William Poole PA-C Primary Care Provider Manan Garcia MD Unavailable Encounter Details Date Type Department Care Team (Late st Contact Info) Description 11/23/2024 Orders Only [facility] Internal Medicine [address] [place] [address] Provider, MD Moshe [address] [place] [address] Social History Tobacco Use Types Packs/Day [...] high school, GED, job training, learning the Kazakh language, technical skills, or developing parenting skills)? [...] Description 01/10/2025 7:30 AM EST Office Visit [facility] [address] Floor, [address] [place] [address] Yue Jesus PA-C [address] [place] [address] 03/04/2025 8:40 AM EST Office Visit [facility] Internal Medicine [address] [place] [address] William Poole PA-C [address] [place] [address] [email or web address] documented as of this encounter Procedures Procedure Name Priority Date/Time Associated Diagnosis Comments OUTSIDE ECG Routine 11/22/2024 8:31 AM EDT OUTSIDE ECG Routine 11/22/2024 8:31 AM EDT OUTSIDE ECG Routine 11/22/2024 8:31 AM EDT documented in this encounter Results * Outside ECG Report Only (11/22/2024 8:31 AM EDT) Historical Provider MD ECG ORDERABLES Final Res ult * Outside ECG Report Only (11/22/2024 8:31 AM EDT) Historical Provider MD ECG ORDERABLES Final Res ult * Outside ECG Report Only (11/22/2024 8:31 AM EDT) us Historical Provider MD ECG ORDERABLES Final Res ult documented in this encounter Visit Diagnoses Not on filedocumented in this encounter Additional Health Concerns Assessment Noted Time PHQ-9 Depression Total Score: 7 01/11/20 23 4:03 PM EST PHQ-2 Depression Total Score: 1 06/29/19 25 1:49 PM EDT documented as of this encounter Care Teams Door Liner Relationship Specialty Start Date End Date William Poole PA-C [address] [place] [address] [email or web address] PCP - General Physician Reinforcing Steel Placer 04/23/24 Sahil Kim MD [address] [place] [address] [email or web address] Insurance Assigned Provider 07/01/18 Manan Garcia MD [address] [place] [address] [email or web address] Insurance Assigned Provider 10/06/24 documented as of this encounter Additional Source Comments The information contained in this document represents components of the legal health record. It is not the complete legal health record.[facility]
--- OUTSIDE RECORDS SUMMARY | 2024-12-28 11:38 | XMS_ITS | Encounter Summary ---
Author Organization [facility] Address [address] [place] [address] [place] [phone] Phone Care Team Providers Care Sewer Repairer Name Role Phone Sahil Kim MD Unavailable William Poole PA-C Primary Care Provider Manan Garcia MD Unavailable Encounter Details Date Type Department Care Team (Late st Contact Info) Description 12/04/2024 Orders Only [facility] Internal Medicine [address] [facility] [place] [address] Provider, MD Moshe [address] [place] [address] Social History Tobacco Use Types Packs/Day [...] high school, GED, job training, learning the Yi language, technical skills, or developing parenting skills)? [...] Description 01/10/2025 7:30 AM EST Office Visit [facility] [address], [address] [place] [address] Yue Jesus PA-C [address] [place] [address] 03/04/2025 8:40 AM EST Office Visit [facility] Internal Medicine [address] [place] [address] William Poole PA-C [address] [place] [address] [email or web address] documented as of this encounter Procedures Procedure Name Priority Date/Time Associated Diagnosis Comments OUTSIDE ECG Routine 12/03/2024 4:40 PM EDT OUTSIDE ECG Routine 12/03/2024 4:28 PM EDT OUTSIDE ECG Routine 12/03/2024 4:28 PM EDT OUTSIDE ECG Routine 12/03/2024 4:25 PM EDT OUTSIDE ECG Routine 12/03/2024 4:00 PM EDT OUTSIDE ECG Routine 12/03/2024 3:25 PM EDT documented in this encounter Results * Outside ECG Report Only (12/03/2024 4:40 PM EDT) us Historical Provider MD ECG ORDERABLES Final Res ult * Outside ECG Report Only (12/03/2024 4:28 PM EDT) Historical Provider MD ECG ORDERABLES Final Res ult * Outside ECG Report Only (12/03/2024 4:28 PM EDT) Historical Provider MD ECG ORDERABLES Final Res ult * Outside ECG Report Only (12/03/2024 4:25 PM EDT) us Historical Provider MD ECG ORDERABLES Final Res ult * Outside ECG Report Only (12/03/2024 4:00 PM EDT) us Historical Provider MD ECG ORDERABLES Final Res ult * Outside ECG Report Only (12/03/2024 3:25 PM EDT) us Historical Provider MD ECG ORDERABLES Final Res ult documented in this encounter Visit Diagnoses Not on filedocumented in this encounter Additional Health Concerns Assessment Noted Time PHQ-9 Depression Total Score: 7 01/11/20 23 4:03 PM EST PHQ-2 Depression Total Score: 1 06/29/19 25 1:49 PM EDT documented as of this encounter Care Teams Sewer Repairer Relationship Specialty Start Date End Date William Poole PA-C [address] [place] [phone] [email or web address] PCP - General Physician Energy And Conservation Technician 04/23/24 Sahil Kim MD [address] [place] [phone] Insurance Assigned Provider 07/01/18 Manan Garcia MD [address] [place] [phone] Insurance Assigned Provider 10/06/24 documented as of this encounter Additional Source Comments The information contained in this document represents components of the legal health record. It is not the complete legal health record.[facility]
--- OUTSIDE RECORDS SUMMARY | 2024-12-28 11:38 | XMS_ITS | Clinical Summary ---
Author Organization [facility], Address [address] [place] [address] Phone Care Team Providers Care Earth Auger Operator Name Role Phone Luz Lara [facility] Primary Care Provider Unavail able Allergies Active [...] Last Assessment & Plan: Continue f/u with [facility]. Will report new anal symptoms [...] 89 12/09/2023 2:01 PM EDT Temperature 36.2 C (97.2 F) 09/02/2023 3:05 PM EDT Respiratory Rate - - Oxygen Saturation 98% [...] Cancer Screening: Sigmoidoscopy 2015 Influenza Vaccine (#1) 2024 , 12/10/2019, 12/06/2017 Insurance Generic Workers Comp Care Teams Earth Auger Operator Relationship Specialty Start Date End Date Luz Lara FNP-BC PCP - General 07/13/23
--- OUTSIDE RECORDS SUMMARY | 2024-12-28 11:38 | XMS_ITS | Encounter Summary ---
Author Organization [facility] Address [address] [place] [address] [place] [address] Phone Care Team Providers Care Studio Associate Name Role Phone Sahil Kim MD Unavailable William Poole PA-C Primary Care Provider [phone] Manan Garcia MD Unavailable Encounter Details Date Type Department Care Team (Late st Contact Info) Description 11/27/2024 Orders Only [facility] [place] Internal Medicine [address] [facility] [place] [address] Provider, MD Moshe [address] [place] [address] Social History Tobacco Use Types Packs/Day [...] high school, GED, job training, learning the Croatian language, technical skills, or developing parenting skills)? [...] Description 01/10/2025 7:30 AM EST Office Visit [facility] [address] Floor, [address] [place] [address] Yue Jesus PA-C [address] [place] [address] 03/04/2025 8:40 AM EST Office Visit [facility] Internal Medicine [address] [place] [address] William Poole PA-C [address] [place] [address] documented as of this encounter Procedures Procedure Name Priority Date/Time Associated Diagnosis Comments OUTSIDE ECG Routine 11/27/2024 1:56 PM EDT OUTSIDE ECG Routine 11/27/2024 1:46 PM EDT OUTSIDE ECG Routine 11/27/2024 1:46 PM EDT OUTSIDE ECG Routine 11/27/2024 1:46 PM EDT OUTSIDE ECG Routine 11/27/2024 1:46 PM EDT OUTSIDE ECG Routine 11/27/2024 1:46 PM EDT OUTSIDE ECG Routine 11/27/2024 1:45 PM EDT OUTSIDE ECG Routine 11/27/2024 1:45 PM EDT OUTSIDE ECG Routine 11/27/2024 1:45 PM EDT OUTSIDE ECG Routine 11/27/2024 8:16 AM EDT OUTSIDE ECG Routine 11/26/2024 8:22 AM EDT OUTSIDE ECG Routine 11/26/2024 8:21 AM EDT OUTSIDE ECG Routine 11/26/2024 8:21 AM EDT OUTSIDE ECG Routine 11/26/2024 8:21 AM EDT OUTSIDE ECG Routine 11/26/2024 8:20 AM EDT OUTSIDE ECG Routine 11/26/2024 8:20 AM EDT OUTSIDE ECG Routine 11/26/2024 8:20 AM EDT OUTSIDE ECG Routine 11/26/2024 8:19 AM EDT OUTSIDE ECG Routine 11/26/2024 8:19 AM EDT OUTSIDE ECG Routine 11/26/2024 8:19 AM EDT OUTSIDE ECG Routine 11/26/2024 8:18 AM EDT OUTSIDE ECG Routine 11/26/2024 8:18 AM EDT OUTSIDE ECG Routine 11/26/2024 8:18 AM EDT OUTSIDE ECG Routine 11/26/2024 8:17 AM EDT OUTSIDE ECG Routine 11/26/2024 8:17 AM EDT OUTSIDE ECG Routine 11/26/2024 8:16 AM EDT OUTSIDE ECG Routine 11/26/2024 8:14 AM EDT OUTSIDE ECG Routine 11/26/2024 8:14 AM EDT documented in this encounter Results * Outside ECG Report Only (11/27/2024 1:56 PM EDT) us Historical Provider ECG ORDERABLES Final Res ult * Outside ECG Report Only (11/27/2024 1:46 PM EDT) [facility] Provider MD ECG ORDERABLES Final Res ult * Outside ECG Report Only (11/27/2024 1:46 PM EDT) Result [facility] Provider MD ECG ORDERABLES Final Res ult * Outside ECG Report Only (11/27/2024 1:46 PM EDT) Result [facility] Provider MD ECG ORDERABLES Final Res ult * Outside ECG Report Only (11/27/2024 1:46 PM EDT) Result [facility] Provider MD ECG ORDERABLES Final Res ult * Outside ECG Report Only (11/27/2024 1:46 PM EDT) Result [facility] Provider MD ECG ORDERABLES Final Res ult * Outside ECG Report Only (11/27/2024 1:45 PM EDT) Result [facility] Provider MD ECG ORDERABLES Final Res ult * Outside ECG Report Only (11/27/2024 1:45 PM EDT) Result [facility] Provider MD ECG ORDERABLES Final Res ult * Outside ECG Report Only (11/27/2024 1:45 PM EDT) Result [facility] Provider MD ECG ORDERABLES Final Res ult * Outside ECG Report Only (11/27/2024 8:16 AM EDT) Result [facility] Provider MD ECG ORDERABLES Final Res ult * Outside ECG Report Only (11/26/2024 8:22 AM EDT) Result [facility] Provider MD ECG ORDERABLES Final Res ult * Outside ECG Report Only (11/26/2024 8:21 AM EDT) Result [facility] Provider MD ECG ORDERABLES Final Res ult * Outside ECG Report Only (11/26/2024 8:21 AM EDT) Result [facility] Provider MD ECG ORDERABLES Final Res ult * Outside ECG Report Only (11/26/2024 8:21 AM EDT) Result [facility] Provider MD ECG ORDERABLES Final Res ult * Outside ECG Report Only (11/26/2024 8:20 AM EDT) Result [facility] Provider MD ECG ORDERABLES Final Res ult * Outside ECG Report Only (11/26/2024 8:20 AM EDT) Result [facility] Provider MD ECG ORDERABLES Final Res ult * Outside ECG Report Only (11/26/2024 8:20 AM EDT) Result [facility] Provider MD ECG ORDERABLES Final Res ult * Outside ECG Report Only (11/26/2024 8:19 AM EDT) Result [facility] Provider MD ECG ORDERABLES Final Res ult * Outside ECG Report Only (11/26/2024 8:19 AM EDT) Result [facility] Provider MD ECG ORDERABLES Final Res ult * Outside ECG Report Only (11/26/2024 8:19 AM EDT) Result [facility] Provider MD ECG ORDERABLES Final Res ult * Outside ECG Report Only (11/26/2024 8:18 AM EDT) Result [facility] Provider MD ECG ORDERABLES Final Res ult * Outside ECG Report Only (11/26/2024 8:18 AM EDT) Result [facility] Provider MD ECG ORDERABLES Final Res ult * Outside ECG Report Only (11/26/2024 8:18 AM EDT) Historical Provider MD ECG ORDERABLES Final Res ult * Outside ECG Report Only (11/26/2024 8:17 AM EDT) Historical Provider MD ECG ORDERABLES Final Res ult * Outside ECG Report Only (11/26/2024 8:17 AM EDT) Historical Provider MD ECG ORDERABLES Final Res ult * Outside ECG Report Only (11/26/2024 8:16 AM EDT) Historical Provider MD ECG ORDERABLES Final Res ult * Outside ECG Report Only (11/26/2024 8:14 AM EDT) Historical Provider MD ECG ORDERABLES Final Res ult * Outside ECG Report Only (11/26/2024 8:14 AM EDT) Historical Provider MD ECG ORDERABLES Final Res ult documented in this encounter Visit Diagnoses Not on filedocumented in this encounter Additional Health Concerns Assessment Noted Time PHQ-9 Depression Total Score: 7 01/11/20 23 4:03 PM EST PHQ-2 Depression Total Score: 1 06/29/19 25 1:49 PM EDT documented as of this encounter Care Teams Studio Associate Relationship Specialty Start Date End Date William Poole PA-C [address] [place] [address] [email or web address] PCP - General Physician Linoleum Installer 04/23/24 Sahil Kim MD [address] [place] [address] Insurance Assigned Provider 07/01/18 Manan Garcia MD [address] [place] [address] [email or web address] Insurance Assigned Provider 10/06/24 documented as of this encounter Additional Source Comments The information contained in this document represents components of the legal health record. It is not the complete legal health record.[facility]
--- OUTSIDE RECORDS SUMMARY | 2024-12-28 11:38 | XMS_ITS | Encounter Summary ---
Author Organization [facility] Address [address] [place] [address] [place] [phone] Phone Care Team Providers Care Compensation Adjuster Name Role Phone Sahil Kim MD Unavailable [phone] William Poole PA-C Primary Care Provider [phone] Manan Garcia MD Unavailable Reason for Visit * Reason Onset Date Comments Authorization for [employer] 11/29/2024 Encounter Details Date Type Department Care Team (Late st Contact Info) Description 11/29/2024 Telephone [facility] Internal Medicine [address], [place] [phone] William Poole PA-C [address] [place], [place] [phone] [email or web address] Authorization for [employer] Social History Tobacco Use Types Packs/Day Years [...] as of this encounter Progress Notes * Karen Schuster - 11/30/2024 2:55 PM EDT Escalated to the referral dept * Christine Anderson - 11/29/2024 10:10 AM EDT Received call from [employer], requesting to follow up on the request for insurance auth with the start date of 10-08-24 for provider: Isabel BENJAMIN, NPI number: [id number] requested for referral: 12 visits Fax referral authorization: [phone] Referral is already in system,. Needs insurance auth oneal. documented in this encounter Plan of Treatment Upcoming Encounters Date Type Department Care Team (Late st Contact Info) Description 01/10/2025 7:30 AM EST Office Visit [facility] [address] [facility] [address] Floor, [address] [place] [address] Yue Jesus PA-C [address] [place] [address] 03/04/2025 8:40 AM EST Office Visit [facility] [place] [facility] Medicine [address] [place] [address] William Poole PA-C [address] [place] [address] documented as of this encounter Visit Diagnoses Not on filedocumented in this encounter Additional Health Concerns Assessment Noted Time PHQ-9 Depression Total Score: 7 01/11/20 23 4:03 PM EST PHQ-2 Depression Total Score: 1 06/29/19 25 1:49 PM EDT documented as of this encounter Care Teams Compensation Adjuster Relationship Specialty Start Date End Date William Poole PA-C [address] [place] [address] [email or web address] PCP - General Physician Weed Cooking Operator 04/23/24 Sahil Kim MD [address] [place] [address] [email or web address] Insurance Assigned Provider 07/01/18 Manan Garcia MD [address] [place] [address] [email or web address] Insurance Assigned Provider 10/06/24 documented as of this encounter Additional Source Comments The information contained in this document represents components of the legal health record. It is not the complete legal health record.[facility]
--- OUTSIDE RECORDS SUMMARY | 2024-12-28 11:38 | XMS_ITS | Encounter Summary ---
Author Organization [facility] Address [address] [place] [address] [place] [address] Phone Care Team Providers Care Wash And Greaser Name Role Phone Sahil Kim MD Unavailable William Poole PA-C Primary Care Provider [phone] Manan Garcia MD Unavailable Encounter Details Date Type Department Care Team (Late st Contact Info) Description 12/06/2024 Orders Only [facility] [place] Internal Medicine [address] [facility] [place] [address] Provider, MD Moshe [address] [place] [address] Social History Tobacco Use Types Packs/Day [...] high school, GED, job training, learning the Danish language, technical skills, or developing parenting skills)? [...] Description 01/10/2025 7:30 AM EST Office Visit [facility] [address], [address] [place] [address] Yue Jesus PA-C [address] [place] [address] 03/04/2025 8:40 AM EST Office Visit [facility] Internal Medicine [address] [place] [address] William Poole PA-C [address] [place] [address] documented as of this encounter Procedures Procedure Name Priority Date/Time Associated Diagnosis Comments OUTSIDE ECG Routine 12/06/2024 12:02 PM EDT OUTSIDE ECG Routine 12/06/2024 12:02 PM EDT OUTSIDE ECG Routine 12/06/2024 11:23 AM EDT OUTSIDE ECG Routine 12/06/2024 11:19 AM EDT OUTSIDE ECG Routine 12/06/2024 11:11 AM EDT OUTSIDE ECG Routine 12/06/2024 11:10 AM EDT OUTSIDE ECG Routine 12/05/2024 11:48 AM EDT OUTSIDE ECG Routine 12/05/2024 11:33 AM EDT OUTSIDE ECG Routine 12/05/2024 11:31 AM EDT OUTSIDE ECG Routine 12/05/2024 11:15 AM EDT OUTSIDE ECG Routine 12/05/2024 11:08 AM EDT documented in this encounter Results * Outside ECG Report Only (12/06/2024 12:02 PM EDT) Result [facility] Provider MD ECG ORDERABLES Final Res ult * Outside ECG Report Only (12/06/2024 12:02 PM EDT) Result [facility] Provider MD ECG ORDERABLES Final Res ult * Outside ECG Report Only (12/06/2024 11:23 AM EDT) [facility] Provider MD ECG ORDERABLES Final Res ult * Outside ECG Report Only (12/06/2024 11:19 AM EDT) Result [facility] Provider MD ECG ORDERABLES Final Res ult * Outside ECG Report Only (12/06/2024 11:11 AM EDT) Result [facility] Provider MD ECG ORDERABLES Final Res ult * Outside ECG Report Only (12/06/2024 11:10 AM EDT) Result [facility] Provider MD ECG ORDERABLES Final Res ult * Outside ECG Report Only (12/05/2024 11:48 AM EDT) Result [facility] Provider MD ECG ORDERABLES Final Res ult * Outside ECG Report Only (12/05/2024 11:33 AM EDT) Result [facility] Provider MD ECG ORDERABLES Final Res ult * Outside ECG Report Only (12/05/2024 11:31 AM EDT) Result [facility] Provider MD ECG ORDERABLES Final Res ult * Outside ECG Report Only (12/05/2024 11:15 AM EDT) Result [facility] Provider MD ECG ORDERABLES Final Res ult * Outside ECG Report Only (12/05/2024 11:08 AM EDT) Result [facility] Historical Provider ECG ORDERABLES Final Res ult documented in this encounter Visit Diagnoses Not on filedocumented in this encounter Additional Health Concerns Assessment Noted Time PHQ-9 Depression Total Score: 7 01/11/20 23 4:03 PM EST PHQ-2 Depression Total Score: 1 06/29/19 25 1:49 PM EDT documented as of this encounter Care Teams Wash And Greaser Relationship Specialty Start Date End Date William Poole PA-C [address] [place] [address] PCP - General Physician Cnc Field Service Engineer 04/23/24 Sahil Kim MD [address] [place] [address] Insurance Assigned Provider 07/01/18 Manan Garcia MD [address] [place] [address] Insurance Assigned Provider 10/06/24 documented as of this encounter Additional Source Comments The information contained in this document represents components of the legal health record. It is not the complete legal health record.[facility]
--- OUTSIDE RECORDS SUMMARY | 2024-12-28 11:38 | XMS_ITS | Data Portability ---
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 No better and a month after urology appointment will do an intra-articula r injection [email or web address] Not available 05/18/2024 07:37:40 Plan of Treatment Reminders Order Date Submit Date Provider Last Modified By Organization Details Last Modified Time Details Appointments RECHECK 15 2024 09:00A M Isabel Wheeler PA-C Not available Not available Not available Lab None recorded . Referral None recorded . Procedures None recorded . Surgeries None recorded . Imaging XR, lumbar spine, 2 view - 302 2V LSPINE 2024 025 [email or web address] [facility], [address], [facility] [address], [place], [address], 11/06/2024 12:58:18 Medication Orders None recorded . Patient TargetsNo targets recorded. Patient InstructionsNo instructions recorded. Reason for Referral None Reported. Results Created Date Observation Date Name Description Value Unit Range Abnormal Flag Note LastModifiedBy Organization Detail LastModifiedTime 03/09/1903/06/2024 MRI, lumba r spine , w/wo contr ast [facility] Access ion Number : [id number] Patien t Name: Rolando Sandersona teodora Record Number : [id number] Date of : 1965 Date of Exam: 2024 Referr ing Physic germaine: Derick De La [facility] [address] [facility], [place] [address] Exam: MR Lumbar Spine (C-/C+ ) CPT 97546 Room Descri ption: [place] [facility] 3T MR Lumbar Spine (C-/C+ ) CPT 40183 INDICA TION: Reason For Exam: M54.16 - Radicu lopath y, lumbar region , , status post ALIF L5-S1 eval any change s with contra st TECHNI QUE: Multip lanar, multis equenc e MRI of the lumbar spine was perfor med with and withou t intrav enous contra st. 17 mL Dotare m intrav enous contra st was admini stered . COMPAR ALIVIA: Radiog raphs of the cervic al spine 024. Prior MRI is not availa ble the time of interp retati on. FINDIN GS: NUMBER ING: The study assume s 5 non-ri b-bear ing lumbar type verteb ral bodies . A rudime ntary disc space is presen t at S1-S2. ALIGNM ENT, VERTEB DIMAS, MARROW , AND DISCS: Interb franklyn graft device is presen t at L5-S1. The hardwa re and immedi ately adjace nt struct ures are not direct ly assess ed due to suscep tibili ty artifa ct. Alignm ent is normal . Verteb ral body height s are preser socorro. Rounde d T1 and T2 hyperi ntense margie iomas are presen t at L2 anteri cristiano and senior medical transcriptionist iorly. No suspic ious marrow lesion s are seen. Interv ertebr al discs are mainta ined. CONUS: The conus is normal in signal and contou r, with normal level of termin ation at L1. There is no abnorm al enhanc ement. PARASP INAL TISSUE S: The parasp inal soft tissue s are unrema rkable . DETAIL ED FINDIN GS BY LEVEL: T12-L1 : No signif icant disc hernia tion, centra l stenos is, or neural forami nal narrow ing. L1-L2: No signif icant disc hernia tion, centra l stenos is, or neural forami nal narrow ing. L2-L3: No signif icant disc hernia tion, centra l stenos is, or neural forami nal narrow ing. L3-L4: No signif icant disc hernia tion, centra l stenos is, or neural forami nal narrow ing. L4-L5: Mild broad- based disc bulge. No signif icant centra l stenos is. Minima l bilate ral neural forami nal narrow ing. L5-S1: Broad- based senior medical transcriptionist ior disc bulge. Mild facet spurri ng. No signif icant centra l stenos is. Mild bilate ral neural forami nal narrow ing. IMPRES NIKKI: Mild degene rative change s of the lumbar spine, as well as postsu rgical change s from anteri or lumbar fusion at L5-S1, as above. No high-g rade stenos is or nerve root compre ssion. Electr onical ly Signed By: Shanice blue[address] [facility] ([facility]) [address], [place], [address], 03/12/2024 09:27:06 03/09/19 25 03/06/2024 MRI, lumba r spine , w/ contr ast No observ ation record ed. BEKAH [facility] ([facility]) [address], [place], [address], 03/12/2024 09:27:01 11/07/19 25 11/06/2024 XR, lumba r spine , 2 view http:/ [email or web address] ?Encry pted=s hAaTro YD8dLq bEUv6g %2BXZw aYqtaq 0bqfl% 2Fg9IQ a4ajBk vP9nXo QUaueC m3YtLR FvZlgJ JJ8mAn HZtai3 8j7872 AC0Klb HyAVqe vKiQtr MwF INTERFACE [facility] [address], [place], [address], 11/06/2024 12:18:13 11/07/19 25 11/06/2024 XR, lumba r spine , 2 view [email or web address]:/ [email or web address] ?Encry pted=s hAaTro YD8dLq bEUv6g %2BXZw aYqtaq 0bqfl% 2Fg9IQ a4ajBk vP9nXo QUaueC m3YtLR FvZlgJ JJ8mAn HZtai3 7h8864 AC0Klb HyAVqe vKiQtr [facility] INTERFACE [facility] [place] [facility] [address] [facility] [address], [place], [address], 11/06/2024 12:18:15 Result Notes Documentation Provider Name and Address Organization Details Recorded Time Mri, Lumbar Spine, W/wo Contrast : [facility] Accession Number: [id number] Patient Name: Felix Franco Date of : 1965 Date of Exam: 03-06-2024 Referring Physician: Derick Weinberg [facility] [address] [facility] [address] [address] [place], [place] [address] Exam: MR Lumbar Spine (C-/C+) CPT 45125 Room Description: [facility] 3T MR Lumbar Spine (C-/C+) CPT 36885 INDICATION: Reason For Exam: M54.16 - Radiculopathy, lumbar region, , status post ALIF L5-S1 eval any changes with contrast TECHNIQUE: Multiplanar, multisequence MRI of the lumbar spine was performed with and without intravenous contrast. 17 mL Dotarem intravenous contrast was administered. COMPARISON: Radiographs of the cervical spine 03/11/2023. Prior MRI is not available the time of interpretation. FINDINGS: NUMBERING: The study assumes 5 ihd-jua-agyqdxc lumbar type vertebral bodies. A rudimentary disc space is present at S1-S2. ALIGNMENT, VERTEBRAE, MARROW, AND DISCS: Interbody graft device is present at L5-S1. The hardware and immediately adjacent structures are not directly assessed due to susceptibility artifact. Alignment is normal. Vertebral body heights are preserved. Rounded T1 and T2 hyperintense hemangiomas are present at L2 anteriorly and posteriorly. No suspicious marrow lesions are seen. Intervertebral discs are maintained. CONUS: The conus is normal in signal and contour, with normal level of termination at L1. There is no abnormal enhancement. PARASPINAL TISSUES: The paraspinal soft tissues are unremarkable. DETAILED FINDINGS BY LEVEL: T12-L1: No significant disc herniation, central stenosis, or neural foraminal narrowing. L1-L2: No significant disc herniation, central stenosis, or neural foraminal narrowing. L2-L3: No significant disc herniation, central stenosis, or neural foraminal narrowing. L3-L4: No significant disc herniation, central stenosis, or neural foraminal narrowing. L4-L5: Mild broad-based disc bulge. No significant central stenosis. Minimal bilateral neural foraminal narrowing. L5-S1: Broad-based posterior disc bulge. Mild facet spurring. No significant central stenosis. Mild bilateral neural foraminal narrowing. IMPRESSION: Mild degenerative changes of the lumbar spine, as well as postsurgical changes from anterior lumbar fusion at L5-S1, as above. No high-grade stenosis or nerve root compression. Electronically Signed By: Elvie WEINBERG PA-C [address] [place] [address] [address], [place], [address], [facility] - [facility] 03/12/2024 09:27:07 Xr, Lumbar Spine, 2 View : [email or web address]? Encrypted=rmYiVibGY4jUdyL Uv6g%3KDPczQdvyy7ioqc%2Fg 7TNo1xcAmlX0kUrXLwuoSs9Da DYTfZraXKS4sQbOXiow90m996 7IS8VevTwPJumzUaJlpGaB Not Available [facility] 11/06/2024 12:18:14 Xr, Lumbar Spine, 2 View : [email or web address]? Encrypted=jzNxDdlKO3gJpmZ Uv6g%2EQQoiGrjiv2lyai%2Fg 0IIw1jnKphA0nHeDPnhkHx9Lr OWOqCfxRRD8eTjEWlbd88r821 1ZR0NosVhCHhoaKeZywCgA Not Available [facility] 11/06/2024 12:18:16 Problems Name Problem SNOMED Code Status Onset Date Resolution Date Notes Provider Name and Address Organization Details Recorded Time No complaints 591539431 Active Status : 'I'; Not Available [facility] 4 09:16:20 Spinal stenosis in cervical region 07959402 Active 2013 Status : 'A'; Not Available [facility] 4 11:58:18 Pain of right lower leg 5504435800411 08 Active 2023 LOWELL hines [facility] 4 15:26:31 Low back pain 026103927 Active 2023 LOWELL hines [facility] 4 15:03:39 Osteoarthr itis of left hip joint 3303790393068 08 Active 2023 Mahesh Peres PA-C [address], [place], [address] , [facility] 4 07:22:21 Osteoarthr itis of right hip joint 9479408854404 07 Active 2023 Mahesh Peres PA-C [address], [place], [address] , [facility] 4 07:22:21 Lumbar radiculopa thy 853922831 Active 2024 DERICK WEINBERG PA-C [address], [place], [address] , [facility] 5 14:12:30 Problem Notes None recorded. Procedures Surgical History Date Name Laterality Status Provider Name and Address Organization Details Recorded Time 5 HILLARYHip [facility] completed Mahesh Peres PA-C [address], [place], [address], [facility] 05/18/2024 07:37:23 4 JZHip completed Mahesh Peres PA-C [address], [place], [address], [place] [facility] 11/18/2023 09:21:39 operative procedure on spinal structure completed CLARITA MENEZES [facility] 07/03/2024 09:23:16 Imaging Results None recorded. Procedure Notes None recorded. Medical Equipment None Reported. Allergies No known drug allergies Medications Name Sig Start Date Stop Date Status Note LastModified by Organization Details LastModified Time atorvastatin 10 mg tablet active Not Available Not Available Not Available ibuprofen 800 mg tablet 11/28 completed Not Available Not Available Not Available tizanidine 4 mg tablet Take 1 tablet every 8 hours by oral route for 7 days. 11/28 completed Not Available Not Available Not Available meloxicam 15 mg tablet active Not Available Not Available No t Available sucralfate 1 gram tablet 07/03 completed Not Available Not Available Not Available propranolol ER 60 mg capsule,24 hr,extended release active Not Available Not Available Not Available sulfamethoxa zole 800 mg-trimethop rim 160 mg tablet 11/28 completed Not Available Not Available Not Available acetaminophe n 500 mg tablet active 1 gram TID Not Available Not Available Not Available propranolol 40 mg tablet 07/03 completed Not Available Not Available Not Available amoxicillin 875 mg tablet 11/28 completed Not Available Not Available Not Available pseudoephedr ine-guaifene sin ER 80-700 mg tablet,exten ded release 1 po bid prn pain 09/30 completed Statu s: 'Disc ontin ued'; Not Available Not Available Not Available gabapentin 300 mg capsule Take 1 capsule 3 times a day by oral route for 90 days. 2024 active Not Available Not Available Not Avai lable Advil 200 mg tablet Take 1 tablet every 6 hours by oral route. active Not Available Not Available No t Available lorazepam 1 mg tablet TAKE 1 TAB BY MOUTH 1-2 HOURS PRIOR TO MRI AND SECOND NEEDED AT TIME OF MRI 07/03 completed Not Available Not Available Not Available methylpredni solone 4 mg tablets in a dose pack 11/28 completed Not Available Not Available Not Available oxycodone 5 mg tablet Take 1 tablet every 4-6 hours by oral route as needed for 7 days, for pain. 11/17 completed Not Available Not Available Not Available cyclobenzapr ine 5 mg tablet 11/28 completed Not Available Not Available Not Available omeprazole (bulk) active Not Available Not Available Not Available Vitals Date Recorded Body height Body mass index (BMI) Body weight Provider Name and Address Organization Details Last Updated DateTime 03/28/2024 187.96 cm 24.8 kg/m2 39203.33 g Sabi Yu [facility] 03/28/2024 15:07:59 Date Recorded Body height Body mass index (BMI) Body weight Provider Name and Address Organization Details Last Updated DateTime 05/18/2024 187.96 cm 24.8 kg/m2 42818.33 g Javed Sweeney [facility] 05/18/2024 07:32:30 Date Recorded Body height Body mass index (BMI) Body weight Provider Name and Address Organization Details Last Updated DateTime 07/03/2024 187.96 cm 24.8 kg/m2 43247.33 g LCARITA MENEZES [facility] 07/03/2024 13:47:33 Date Recorded Body height Body mass index (BMI) Body weight Provider Name and Address Organization Details Last Updated DateTime 11/06/2024 187.96 cm 24.8 kg/m2 18190.33 g LAURA LINARES [facility] 11/06/2024 11:23:26 Date Recorded Body height Body mass index (BMI) Body weight Provider Name and Address Organization Details Last Updated DateTime 02/13/2024 187.96 cm 24.8 kg/m2 84086.33 g lara allred [facility] 02/13/2024 16:06:03 Social History None recorded. Functional Status None recorded. Mental Status None recorded. Family History Nothing Reported. Medical History No medical history recorded. Past Encounters Encounter ID Performer Location Encounter Start Date Encounter Closed Date Diagnosis/Indication Diagnosis SNOMED-CT Code Diagnosis ICD10 Code Diagnosis IMO Codes Diagnosis Note [id number] Esteban Low MD [place] [place] [address] [place] [address] 06/16/2023 09:46:27 07/06/2023 13:09:19 Spinal stenosis of lumbar region 21779440 M48.543 [id number] Esteban Low MD [facility] [address] [place] [address] 08/23/2023 13:25:27 09/26/2023 18:46:49 Low back pain 183625948 M54.50 [id number] Esteban Low MD [facility] [address] [place] [address] 09/23/2023 10:49:47 10/24/2023 06:41:18 Low back pain 427135867 M54.50 [id number] DERICK WEINBERG PA-C [facility] [address] [place] [address] 10/20/2023 09:57:07 11/14/2023 09:53:35 Postoperative visit 719874012 Z48.89 [id number] DERICK WEINBERG PA-C [place] [address] [place] [address] 11/11/2023 14:41:04 12/05/2023 10:48:46 Postoperative visit 592294497 Z48.89 [id number] Gayla Wilson PA-C [place] [place] [address] 11/15/2023 22:47:54 11/15/2023 22:49:38 [id number] Mahesh Peres PA-C [address] [place] [address] 11/18/2023 09:04:32 12/08/2023 11:28:19 Osteoarthritis of right hip joint 6713009771 41977 M16.11 [id number] DERICK WEINBERG PA-C [place] [place] [address] 11/29/2023 14:50:13 12/22/2023 13:15:44 Postoperative visit 520597610 Z48.89 Low back pain 320017217 M54.50 [id number] DERICK WEINBERG PA-C [address] [place] [address] 02/13/2024 15:47:53 03/07/2024 10:13:14 Postoperative pain 280345073 G89.18 208252 Lumbar radiculopathy 128 881409 M54.16 [id number] DERICK WEINBERG PA-C [facility] [address] [place] [address] 03/28/2024 14:42:14 04/05/2024 12:42:11 History of lumbar fusion 6916841498 9106 Z98.1 074045 [id number] Mahesh Peres PA-C [facility] [address] [place] [address] 05/18/2024 07:26:04 06/04/2024 13:38:45 Osteoarthritis of right hip joint 6807045400 97618 M16.11 [id number] DERICK WEINBERG PA-C [facility] [address] [place] [address] 07/03/2024 13:41:25 07/09/2024 15:48:07 Lumbar radiculopathy 520135847 M54.16 [id number] Isabel Wheeler PA-C [facility] [address] [place] [address] 11/06/2024 11:15:52 11/13/2024 14:42:49 Lumbar radiculopathy 247853932 M54.16 [id number] Health Concerns Section Related Observation LastModified by Organization Detai ls LastModified Time None Recorded Concern Status LastModified by Organization Details LastModified Time None Recorded Advance Directives Directive None Recorded Payers Insurance Date Sequence Insurance Name Policy Number Policy Mora Covered Member ID Mora Member ID Guarantor Name 11/23/2024 1 [place]: [facility] (O) [id number] Felix Franco [id number] Felix Franco 06/16/2023 CLAIM STRATEGIES [facility] Felix Franco 11/06/2024 [employer] [place] Franco Notes Date Note Type Note Provider Name and Address Organization Details Recorded Time 02/13/2024 text/html I am seeing the patient today under the supervision of Dr. Contreras who was available but who did not see the patient. Surgery: ALIF L5-V2Sskrlzk date: 09/07/2023Surgeon: Dr. Low HPI: Patient is a pleasant 58-year-old male who presents 5 months s/p above surgery. Patient reports his pain had improved and was doing good until about 4 weeks ago where he thinks he overdid it lifting weights at physical therapy he is now complaining of right lower back pain that shoots down the lateral side of the right leg. Patient continues to complain of penile tip numbness infrequently. Also states he has some anterior groin pain and is still being followed for a labral tear in the hip. He reports he has been IN the ED Tuesday with the Worker's Comp. Continues to express significant concerns about being reinjured by going back to work or doing too much too soon. Past family, medical, social history and review of symptoms have been reviewed, updated, and it is located in the patient's chart. MSK EXAM: examination of the lumbar spineTransitions: Patient able to arise from a seated position without difficulty. Gait within normal limits and steady. No assistive device.Inspection: surgical incision healed well without evidence of infection. Non tender to touch. Bilateral lower extremities equal movement and strength 5/5. Positive sensation to touch. No weakness or pain can be reproduced on exam today. Straight leg raise test negative bilaterally. There is no ankle clonus bilaterally. IMAGIN views lumbar spine AP and lateral show intact lumbar implants. There is no migration or changes on x-ray when compared to previous imaging. IMPRESSION: Patient doing well status post ALIF L5-S1, 5 months postop PLAN: Findings and situation discussed with patient.Discussed with the patient at this time as he has a return of radicular symptoms I would and is continuing to struggle getting back into work activity and dealing with physical therapy I would recommend doing a follow-up MRI with contrast to evaluate any changes. Will plan to follow-up after the MRI. I did have a very ernie discussion with the patient that in the event this MRI shows no change barring his postsurgical changes that would be expected likely some of this discomfort is going to be part of the day today routine for him he needs to continue with his physical therapy we can always send him for injection type therapy which she is leery of however I did encourage him that this likely may be more helpful now that he has addressed the initial problem. Did discuss with the patient that would give him an updated out of work note however pending the HORACIO review there may be changes that are up and coming. Did discuss with the patient that I do feel that he would be able to return back to work fully and that some of this is likely due to a fear of reinjury and that this would come with time and trust. Patient expressed some doubt but did express understanding and agreement with the plan moving forward all other questions asked and answered. FOLLOW UP: Post MRI Speech recognition director statistical programming software was used to create portions of this document. An attempt at proofreading has been made to minimize errors. Please call for corrections. DERICK WEINBERG PA-C [address] [facility] [address] [facility], [place], [address], [facility] 02/14/2024 08:41:29 03/28/2024 text/html I am seeing the patient today under the supervision of Dr. Contreras who was available but who did not see the patient. Surgery: ALIF L5-U1Xmfeceq date: 09/07/2023Surgeon: Dr. Low HPI: Patient is a pleasant 58-year-old male who presents 6 months s/p above surgery. Patient presents today with pain limited to things he is doing about the same but has not been doing much. Has been working with urology on groin and penile numbness. He again reiterates he has been seen in the past for his hip but there is no great concern . He denies tingling or numbness and pain along the right groin and adductor region. Past family, medical, social history and review of symptoms have been reviewed, updated, and it is located in the patient's chart. MSK EXAM: examination of the lumbar spineTransitions: Patient able to arise from a seated position without difficulty. Gait within normal limits and steady. No assistive device.Inspection: surgical incision healed well without evidence of infection. Non tender to touch. Bilateral lower extremities equal movement and strength 5/5. Positive sensation to touch. No weakness or pain can be reproduced on exam today. Straight leg raise test negative bilaterally. There is no ankle clonus bilaterally. IMAGING: Not indicated today's visit MRI dated 03/06/2024 shows no acute changes on exam from previous MRI. There is no herniation or nerve root compression the level of L1-L2.L4-L5: Mild broad-based disc bulge. No significant central stenosis. Minimal bilateral neural foraminal narrowing. L5-S1: Broad-based posterior disc bulge. Mild facet spurring. No significant central stenosis. Mild bilateral neural foraminal narrowing. Postsurgical changes noted. IMPRESSION: Patient doing well status post ALIF L5-S1, 6 months postop PLAN: Findings and situation discussed with patient. At this time discussed with the patient again that the symptoms in his hip are unlikely related to the surgery he has had we did not focus on the regions that would innervate these areas. May likely be coming from his hip as the groin and his hip joint proper pain. He was given a work note to return to light duty no lifting greater than 15 pounds starting fibrate therapy. Follow-up in 3 months and myself we did discuss having him follow-up with Dr. Sin BENJAMIN again for his right hip as his urologist is also recommended that he potentially get an injection into this region per the patient. Other questions asked and answered patient expressed understanding agree with plan FOLLOW UP: 3 months Speech recognition director statistical programming software was used to create portions of this document. An attempt at proofreading has been made to minimize errors. Please call for corrections. DERICK WEINBERG PA-C [address] [place] [address], [place], [address], [facility] 03/30/2024 08:39:05 07/03/2024 text/html I am seeing the patient today under the supervision of Dr. Gong who was available but who did not see the patient. Surgery: ALIF L5-P7Knugjos date: 09/07/2023Surgeon: Dr. Low HPI: Patient is a pleasant 58-year-old male who presents 10 months s/p above surgery. Patient continues to endorse low back soreness in the mornings specifically when after working. He does not feel that he can lift heavier than 25 pounds at this time. Denies any radicular symptoms into the lower extremity. Continues to work with urology on groin and penile numbness. He has recently had trigger point injections into the adductor region at urology. He was recently seen by one of my colleagues for potential hip joint injection however it was opted to wait until he had completed treatment trials with urology. 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 Past family, medical, social history and review of symptoms have been reviewed, updated, and it is located in the patient's chart. MSK EXAM: examination of the lumbar spineTransitions: Patient able to arise from a seated position without difficulty. Gait within normal limits and steady. No assistive device.Inspection: surgical incision healed well without evidence of infection. Non tender to touch. Bilateral lower extremities equal movement and strength 5/5. Positive sensation to touch. No weakness or pain can be reproduced on exam today. Straight leg raise test negative bilaterally. There is no ankle clonus bilaterally. IMAGING: Not indicated today's visit MRI dated 03/06/2024 shows no acute changes on exam from previous MRI. There is no herniation or nerve root compression the level of L1-L2.L4-L5: Mild broad-based disc bulge. No significant central stenosis. Minimal bilateral neural foraminal narrowing. L5-S1: Broad-based posterior disc bulge. Mild facet spurring. No significant central stenosis. Mild bilateral neural foraminal narrowing. Postsurgical changes noted.IMPRESSION: Patient doing well status post ALIF L5-S1, 10 months postop PLAN: Findings and situation discussed with patient. At this time as his occupation allows him to continue with weight lifting restrictions I stated it would be okay to continue with with his current work note no lifting greater than 25 pounds however I did state he should continue to work on increasing this over time he can follow-up with one of my colleagues in about 3 months for final clearance back to full activities at work and lifting. Patient expressed understanding agreement with plan again reiterated to the patient that in regards to his urological symptoms I would continue to follow with urology. FOLLOW UP: 3 months per patient request for 1 year postop Speech recognition director statistical programming software was used to create portions of this document. An attempt at proofreading has been made to minimize errors. Please call for corrections. DERICK WEINBERG PA-C [address], [place], [address], [place] - [facility] 07/03/2024 14:12:42 11/06/2024 text/html I am seeing the patient today under the supervision of Dr. Gong who was available but who did not see the patient. Surgery: ALIF [id number] date: 09/07/2023Surgeon: Dr. Low HPI: Patient is a pleasant 58-year-old male who presents 1+ year s/p above surgery. Patient continues to endorse low back soreness in the mornings specifically when after working. He does not feel that he can lift heavier than 25 pounds at this time. Denies any radicular symptoms into the lower extremity. Continues to work with urology on groin and penile numbness. He has recently had trigger point injections into the adductor region at urology. He was recently seen by one of my colleagues for potential hip joint injection however it was opted to wait until he had completed treatment trials with urology. 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 Patient reports improvement overall but still complaining of back pain. Has some intermittent paresthesias in the lower extremities and foot pain. He had x-rays taken of the foot recently. No fractures seen. Past family, medical, social history and review of symptoms have been reviewed, updated, and it is located in the patient's chart. MSK EXAM: examination of the lumbar spineTransitions: Patient able to arise from a seated position without difficulty. Gait within normal limits and steady. No assistive device.Inspection: surgical incision healed well without evidence of infection. Non tender to touch. Bilateral lower extremities equal movement and strength 5/5. Positive sensation to touch. No weakness or pain can be reproduced on exam today. Straight leg raise test negative bilaterally. There is no ankle clonus bilaterally. IMAGING: X-rays ordered obtained reviewed today with patient at [facility] 2 views lumbar spine reveal fusion L5-S1 without complications. There is evidence of preserved disc space above his fusion at L4-5 level. No collapse or instability. MRI dated 03/06/2024 shows no acute changes on exam from previous MRI. There is no herniation or nerve root compression the level of L1-L2.L4-L5: Mild broad-based disc bulge. No significant central stenosis. Minimal bilateral neural foraminal narrowing. L5-S1: Broad-based posterior disc bulge. Mild facet spurring. No significant central stenosis. Mild bilateral neural foraminal narrowing. Postsurgical changes noted.IMPRESSION: Status post ALIF L5-S1, 1+ year postop, complaining of some low back pain and intermittent paresthesias ongoing PLAN: Findings and situation discussed with patient. At this time as his occupation allows him to continue with weight lifting restrictions I stated it would be okay to continue with with his current work note no lifting greater than 25 pounds. FOLLOW UP: 3 months for repeat films Speech recognition director statistical programming software was used to create portions of this document. An attempt at proofreading has been made to minimize errors. Please call for corrections. Isabel Wheeler PA-C [address], [place], [address], [facility] - [facility] 11/07/2024 11:54:35
--- OUTSIDE RECORDS SUMMARY | 2024-12-28 11:38 | XMS_ITS | Encounter Summary ---
Author Organization [facility] Address [address] [place] [address] [place] [phone] Phone Care Team Providers Care Welder Plastic Name Role Phone Sahil Kim MD Unavailable William Poole PA-C Primary Care Provider [phone] Manan Garcia MD Unavailable Encounter Details Date Type Department Care Team (Late st Contact Info) Description 10/30/2024 Procedure Pass [facility] [address] [place], [place] [id number] Social History Tobacco Use Types Packs/Day Years [...] high school, GED, job training, learning the British language, technical skills, or developing parenting skills)? [...] Description 01/10/2025 7:30 AM EST Office Visit [facility] [address] Floor, [address] [place] [address] Yue Jesus, PAChrisC [address] [place] [address] 03/04/2025 8:40 AM EST Office Visit [facility] Internal Medicine [address] [place], [place] [phone] William Poole PA-C [address] [place], [place] [email or web address] documented as of this encounter Visit Diagnoses Not on filedocumented in this encounter Additional Health Concerns Assessment Noted Time PHQ-9 Depression Total Score: 7 01/11/20 23 4:03 PM EST PHQ-2 Depression Total Score: 1 06/29/19 25 1:49 PM EDT documented as of this encounter Care Teams Welder Plastic Relationship Specialty Start Date End Date William Poole PA-C [address] [place] [address] PCP - General Physician Director Housekeeping 04/23/24 Sahil Kim MD [address] [place] [address] Insurance Assigned Provider 07/01/18 Manan Garcia MD [address] [place] [phone] Insurance Assigned Provider 10/06/24 documented as of this encounter Additional Source Comments The information contained in this document represents components of the legal health record. It is not the complete legal health record.[facility]
--- OUTSIDE RECORDS SUMMARY | 2024-12-28 11:38 | XMS_ITS | Encounter Summary ---
Author Organization [facility] Address [address] [place] [address] [place] [phone] Phone Care Team Providers Care Cotton Tier Name Role Phone Sahil Kim MD Unavailable William Poole PA-C Primary Care Provider [phone] Manan Garcia MD Unavailable Encounter Details Date Type Department Care Team (Late st Contact Info) Description 11/28/2024 Orders Only [facility] [address] [facility] [place] [address] Provider, MD Moshe [address] [place] [address] Social History Tobacco Use Types Packs/Day [...] high school, GED, job training, learning the Latvian language, technical skills, or developing parenting skills)? [...] Description 01/10/2025 7:30 AM EST Office Visit [facility] [address] Floor, [address] [place] [address] Yue Jesus PA-C [address] [place] [address] [email or web address] 03/04/2025 8:40 AM EST Office Visit [facility] Internal Medicine [address] [place], [place] [phone] William Poole PA-C [address] [place], [place] documented as of this encounter Procedures Procedure Name Priority Date/Time Associated Diagnosis Comments OUTSIDE ECG Routine 11/27/2024 10:50 AM EDT OUTSIDE ECG Routine 11/27/2024 10:49 AM EDT documented in this encounter Results * Outside ECG Report Only (11/27/2024 10:50 AM EDT) us Historical Provider MD ECG ORDERABLES Final Res ult * Outside ECG Report Only (11/27/2024 10:49 AM EDT) us Historical Provider MD ECG ORDERABLES Final Res ult documented in this encounter Visit Diagnoses Not on filedocumented in this encounter Additional Health Concerns Assessment Noted Time PHQ-9 Depression Total Score: 7 01/11/20 23 4:03 PM EST PHQ-2 Depression Total Score: 1 06/29/19 25 1:49 PM EDT documented as of this encounter Care Teams Cotton Tier Relationship Specialty Start Date End Date William Poole PA-C [address] [place] [address] [email or web address] PCP - General Physician Emergency Room Physician 04/23/24 Sahil Kim MD [address] [place] [address] [email or web address] Insurance Assigned Provider 07/01/18 Manan Garcia MD [address] [place] [address] [email or web address] Insurance Assigned Provider 10/06/24 documented as of this encounter Additional Source Comments The information contained in this document represents components of the legal health record. It is not the complete legal health record.[facility]
--- OUTSIDE RECORDS SUMMARY | 2024-12-28 11:38 | XMS_ITS | Encounter Summary ---
Author Organization [facility] Address [address] [place] [address] [place] [address] Phone Care Team Providers Care Assembly Operator Name Role Phone Sahil Kim MD Unavailable William Poole PA-C Primary Care Provider [phone] Manan Garcia MD Unavailable Encounter Details Date Type Department Care Team (Late st Contact Info) Description 11/26/2024 Orders Only [facility] [place] [facility] [address] [facility] [place] [address] Provider, MD Moshe [address] [place] [address] Social History Tobacco Use Types Packs/Day [...] high school, GED, job training, learning the Faroese language, technical skills, or developing parenting skills)? [...] Description 01/10/2025 7:30 AM EST Office Visit [facility] [address] Floor, [address] [place] [address] Yue Jesus PA-C [address] [place] [address] 03/04/2025 8:40 AM EST Office Visit [facility] Internal Medicine [address] [place] [address] William Poole PA-C [address] [place] [address] documented as of this encounter Procedures Procedure Name Priority Date/Time Associated Diagnosis Comments OUTSIDE ECG Routine 11/26/2024 3:12 PM EDT OUTSIDE ECG Routine 11/26/2024 2:58 PM EDT OUTSIDE ECG Routine 11/26/2024 2:45 PM EDT OUTSIDE ECG Routine 11/26/2024 11:00 AM EDT OUTSIDE ECG Routine 11/26/2024 10:58 AM EDT OUTSIDE ECG Routine 11/26/2024 10:43 AM EDT OUTSIDE ECG Routine 11/25/2024 10:57 AM EDT OUTSIDE ECG Routine 11/25/2024 10:25 AM EDT OUTSIDE ECG Routine 11/25/2024 10:00 AM EDT OUTSIDE ECG Routine 11/25/2024 10:00 AM EDT OUTSIDE ECG Routine 11/25/2024 10:00 AM EDT OUTSIDE ECG Routine 11/25/2024 9:56 AM EDT OUTSIDE ECG Routine 11/25/2024 9:55 AM EDT OUTSIDE ECG Routine 11/25/2024 9:54 AM EDT OUTSIDE ECG Routine 11/25/2024 9:48 AM EDT OUTSIDE ECG Routine 11/25/2024 9:44 AM EDT OUTSIDE ECG Routine 11/24/2024 2:11 PM EDT OUTSIDE ECG Routine 11/24/2024 10:54 AM EDT OUTSIDE ECG Routine 11/24/2024 10:53 AM EDT OUTSIDE ECG Routine 11/24/2024 10:51 AM EDT OUTSIDE ECG Routine 11/24/2024 10:21 AM EDT OUTSIDE ECG Routine 11/24/2024 10:19 AM EDT OUTSIDE ECG Routine 11/24/2024 10:18 AM EDT OUTSIDE ECG Routine 11/24/2024 9:58 AM EDT OUTSIDE ECG Routine 11/24/2024 9:58 AM EDT OUTSIDE ECG Routine 11/24/2024 9:57 AM EDT OUTSIDE ECG Routine 11/24/2024 9:49 AM EDT OUTSIDE ECG Routine 11/24/2024 9:37 AM EDT OUTSIDE ECG Routine 11/24/2024 9:37 AM EDT OUTSIDE ECG Routine 11/24/2024 9:35 AM EDT OUTSIDE ECG Routine 11/24/2024 9:32 AM EDT OUTSIDE ECG Routine 11/23/2024 9:34 AM EDT OUTSIDE ECG Routine 11/23/2024 9:34 AM EDT OUTSIDE ECG Routine 11/23/2024 9:27 AM EDT OUTSIDE ECG Routine 11/23/2024 9:26 AM EDT OUTSIDE ECG Routine 11/23/2024 9:22 AM EDT documented in this encounter Results * Outside ECG Report Only (11/26/2024 3:12 PM EDT) [facility] Provider MD ECG ORDERABLES Final Res ult * Outside ECG Report Only (11/26/2024 2:58 PM EDT) [facility] Provider MD ECG ORDERABLES Final Res ult * Outside ECG Report Only (11/26/2024 2:45 PM EDT) [facility] Provider MD ECG ORDERABLES Final Res ult * Outside ECG Report Only (11/26/2024 11:00 AM EDT) [facility] Provider MD ECG ORDERABLES Final Res ult * Outside ECG Report Only (11/26/2024 10:58 AM EDT) [facility] Provider MD ECG ORDERABLES Final Res ult * Outside ECG Report Only (11/26/2024 10:43 AM EDT) [facility] Provider MD ECG ORDERABLES Final Res ult * Outside ECG Report Only (11/25/2024 10:57 AM EDT) [facility] Provider MD ECG ORDERABLES Final Res ult * Outside ECG Report Only (11/25/2024 10:25 AM EDT) [facility] Provider MD ECG ORDERABLES Final Res ult * Outside ECG Report Only (11/25/2024 10:00 AM EDT) Result [facility] Provider MD ECG ORDERABLES Final Res ult * Outside ECG Report Only (11/25/2024 10:00 AM EDT) Result [facility] Provider MD ECG ORDERABLES Final Res ult * Outside ECG Report Only (11/25/2024 10:00 AM EDT) Result [facility] Provider MD ECG ORDERABLES Final Res ult * Outside ECG Report Only (11/25/2024 9:56 AM EDT) Result [facility] Provider MD ECG ORDERABLES Final Res ult * Outside ECG Report Only (11/25/2024 9:55 AM EDT) Result [facility] Provider MD ECG ORDERABLES Final Res ult * Outside ECG Report Only (11/25/2024 9:54 AM EDT) Result [facility] Provider MD ECG ORDERABLES Final Res ult * Outside ECG Report Only (11/25/2024 9:48 AM EDT) Result [facility] Provider MD ECG ORDERABLES Final Res ult * Outside ECG Report Only (11/25/2024 9:44 AM EDT) Result [facility] Provider MD ECG ORDERABLES Final Res ult * Outside ECG Report Only (11/24/2024 2:11 PM EDT) Result [facility] Provider MD ECG ORDERABLES Final Res ult * Outside ECG Report Only (11/24/2024 10:54 AM EDT) Result [facility] Provider MD ECG ORDERABLES Final Res ult * Outside ECG Report Only (11/24/2024 10:53 AM EDT) [facility] Provider MD ECG ORDERABLES Final Res ult * Outside ECG Report Only (11/24/2024 10:51 AM EDT) Result [facility] Provider MD ECG ORDERABLES Final Res ult * Outside ECG Report Only (11/24/2024 10:21 AM EDT) Result [facility] Provider MD ECG ORDERABLES Final Res ult * Outside ECG Report Only (11/24/2024 10:19 AM EDT) Result [facility] Provider MD ECG ORDERABLES Final Res ult * Outside ECG Report Only (11/24/2024 10:18 AM EDT) Result [facility] Provider MD ECG ORDERABLES Final Res ult * Outside ECG Report Only (11/24/2024 9:58 AM EDT) Result [facility] Provider MD ECG ORDERABLES Final Res ult * Outside ECG Report Only (11/24/2024 9:58 AM EDT) Result [facility] Provider MD ECG ORDERABLES Final Res ult * Outside ECG Report Only (11/24/2024 9:57 AM EDT) Result [facility] Provider MD ECG ORDERABLES Final Res ult * Outside ECG Report Only (11/24/2024 9:49 AM EDT) Result [facility] Provider MD ECG ORDERABLES Final Res ult * Outside ECG Report Only (11/24/2024 9:37 AM EDT) us Historical Provider MD ECG ORDERABLES Final Res ult * Outside ECG Report Only (11/24/2024 9:37 AM EDT) Historical Provider MD ECG ORDERABLES Final Res ult * Outside ECG Report Only (11/24/2024 9:35 AM EDT) [facility] Provider MD ECG ORDERABLES Final Res ult * Outside ECG Report Only (11/24/2024 9:32 AM EDT) [facility] Provider MD ECG ORDERABLES Final Res ult * Outside ECG Report Only (11/23/2024 9:34 AM EDT) [facility] Provider MD ECG ORDERABLES Final Res ult * Outside ECG Report Only (11/23/2024 9:34 AM EDT) [facility] Provider MD ECG ORDERABLES Final Res ult * Outside ECG Report Only (11/23/2024 9:27 AM EDT) [facility] Provider MD ECG ORDERABLES Final Res ult * Outside ECG Report Only (11/23/2024 9:26 AM EDT) [facility] Provider MD ECG ORDERABLES Final Res ult * Outside ECG Report Only (11/23/2024 9:22 AM EDT) [facility] Provider MD ECG ORDERABLES Final Res ult documented in this encounter Visit Diagnoses Not on filedocumented in this encounter Additional Health Concerns Assessment Noted Time PHQ-9 Depression Total Score: 7 01/11/20 23 4:03 PM EST PHQ-2 Depression Total Score: 1 06/29/19 25 1:49 PM EDT documented as of this encounter Care Teams Assembly Operator Relationship Specialty Start Date End Date William Poole PA-C [address] [place] [id number] [email or web address] PCP - General Physician State Pilot 04/23/24 Sahil Kim MD [address] [place] [address] [email or web address] Insurance Assigned Provider 07/01/18 Manan Garcia MD [address] [place] [address] [email or web address] Insurance Assigned Provider 10/06/24 documented as of this encounter Additional Source Comments The information contained in this document represents components of the legal health record. It is not the complete legal health record.[facility]
--- OUTSIDE RECORDS SUMMARY | 2024-12-28 11:38 | XMS_ITS | Encounter Summary ---
Author Organization [facility] Address [address] [place] [address] [place] [address] Phone Care Team Providers Care Extension Forester Name Role Phone Sahil Kim MD Unavailable William Poole PA-C Primary Care Provider [phone] Manan Garcia MD Unavailable Encounter Details Date Type Department Care Team (Late st Contact Info) Description 12/12/2024 Orders Only [facility] [place] [facility] [address] [place] [address] Provider, MD Moshe [address] [place] [address] Social History Tobacco Use Types Packs/Day [...] high school, GED, job training, learning the Syriac language, technical skills, or developing parenting skills)? [...] Description 01/10/2025 7:30 AM EST Office Visit [facility] [address], [address] [place] [address] Yue Jesus PA-C [address] [place] [address] 03/04/2025 8:40 AM EST Office Visit [facility] Internal Medicine [address] [place] [address] William Poole PA-C [address] [place] [address] documented as of this encounter Procedures Procedure Name Priority Date/Time Associated Diagnosis Comments OUTSIDE MONITOR Routine 12/11/2024 7:15 AM EDT OUTSIDE MONITOR Routine 12/10/2024 11:55 AM EDT OUTSIDE ECG Routine 12/10/2024 11:55 AM EDT OUTSIDE MONITOR Routine 12/09/2024 8:16 AM EDT documented in this encounter Results * Outside Monitor Report Only (12/11/2024 7:15 AM EDT) Historical Provider MD [facility] ORDER STEPHEN Final Result * Outside Monitor Report Only (12/10/2024 11:55 AM EDT) Historical Provider [facility] ORDER STEPHEN Final Result * Outside ECG Report Only (12/10/2024 11:55 AM EDT) Historical Provider ECG ORDERABLES Final Res ult * Outside Monitor Report Only (12/09/2024 8:16 AM EDT) Historical Provider [facility] C[facility] SERVICES ORDER STEPHEN Final Result documented in this encounter Visit Diagnoses Not on filedocumented in this encounter Additional Health Concerns Assessment Noted Time PHQ-9 Depression Total Score: 7 01/11/20 23 4:03 PM EST PHQ-2 Depression Total Score: 1 06/29/19 25 1:49 PM EDT documented as of this encounter Care Teams Extension Forester Relationship Specialty Start Date End Date William Poole PA-C [address] [place] [address] [email or web address] PCP - General Physician Chronometer Assembler And Adjuster 04/23/24 Sahil Kim MD [address] [place] [address] [email or web address] Insurance Assigned Provider 07/01/18 Manan Garcia MD [address] [place] [address] [email or web address] Insurance Assigned Provider 10/06/24 documented as of this encounter Additional Source Comments The information contained in this document represents components of the legal health record. It is not the complete legal health record.[facility]
--- OUTSIDE RECORDS SUMMARY | 2024-12-28 11:38 | XMS_ITS | Encounter Summary ---
Author Organization [facility] Address [address] [place] [address] [place] [address] Phone Care Team Providers Care Personnel Clerk Name Role Phone Sahil Kim MD Unavailable [phone] William Poole PA-C Primary Care Provider [phone] Manan Garcia MD Unavailable Encounter Details Date Type Department Care Team (Late st Contact Info) Description 12/07/2024 Orders Only [facility] [place] [facility] [address] [facility] [place] [address] Provider, MD Moshe [address] [place] [address] Social History Tobacco Use Types Packs/Day [...] high school, GED, job training, learning the Serbian language, technical skills, or developing parenting skills)? [...] Description 01/10/2025 7:30 AM EST Office Visit [facility] [address] Floor, [address] [place] [address] Yue Jesus PA-C [address] [place] [address] 03/04/2025 8:40 AM EST Office Visit [facility] [address] [place], [place] [phone] William Poole PA-C [address] [place], [place] documented as of this encounter Procedures Procedure Name Priority Date/Time Associated Diagnosis Comments OUTSIDE ECG Routine 12/06/2024 10:59 AM EDT documented in this encounter Results * Outside ECG Report Only (12/06/2024 10:59 AM EDT) us Historical Provider ECG ORDERABLES Final Res ult documented in this encounter Visit Diagnoses Not on filedocumented in this encounter Additional Health Concerns Assessment Noted Time PHQ-9 Depression Total Score: 7 01/11/20 23 4:03 PM EST PHQ-2 Depression Total Score: 1 06/29/19 25 1:49 PM EDT documented as of this encounter Care Teams Personnel Clerk Relationship Specialty Start Date End Date William Poole PA-C [address] [place], [place] PCP - General Physician Design Technology Teacher 04/23/24 Sahil Kim MD [address] [place] [address] Insurance Assigned Provider 07/01/18 Manan Garcia MD [address] [place] [address] [email or web address] Insurance Assigned Provider 10/06/24 documented as of this encounter Additional Source Comments The information contained in this document represents components of the legal health record. It is not the complete legal health record.[facility]
--- OUTSIDE RECORDS SUMMARY | 2024-12-28 11:38 | XMS_ITS | Encounter Summary ---
Author Organization [facility] Address [address] [place] [address] [place] [address] Phone Care Team Providers Care Instrument Mechanic Name Role Phone Sahil Kim MD Unavailable William Poole PA-C Primary Care Provider [phone] Manan Garcia MD Unavailable Encounter Details Date Type Department Care Team (Late st Contact Info) Description 11/22/2024 Orders Only [facility] [place] [facility] [address] [place] [address] Provider, MD Moshe [address] [place] [address] Social History Tobacco Use Types Packs/Day [...] high school, GED, job training, learning the Greek language, technical skills, or developing parenting skills)? [...] Description 01/10/2025 7:30 AM EST Office Visit [facility] [address], [address] [place] [address] Yue Jesus PA-C [address] [place] [address] 03/04/2025 8:40 AM EST Office Visit [facility] [address] [place] [address] William Poole PA-C 40 [place] [address] documented as of this encounter Procedures Procedure Name Priority Date/Time Associated Diagnosis Comments OUTSIDE ECG Routine 11/21/2024 10:25 AM EDT OUTSIDE ECG Routine 11/21/2024 10:23 AM EDT OUTSIDE ECG Routine 11/21/2024 10:23 AM EDT OUTSIDE ECG Routine 11/21/2024 10:19 AM EDT OUTSIDE ECG Routine 11/21/2024 10:19 AM EDT OUTSIDE ECG Routine 11/21/2024 10:18 AM EDT OUTSIDE ECG Routine 11/21/2024 10:18 AM EDT OUTSIDE ECG Routine 11/21/2024 10:17 AM EDT OUTSIDE ECG Routine 11/21/2024 10:16 AM EDT OUTSIDE ECG Routine 11/21/2024 10:16 AM EDT OUTSIDE ECG Routine 11/21/2024 10:15 AM EDT OUTSIDE ECG Routine 11/21/2024 10:15 AM EDT OUTSIDE ECG Routine 11/21/2024 10:14 AM EDT OUTSIDE ECG Routine 11/21/2024 10:12 AM EDT OUTSIDE ECG Routine 11/21/2024 10:12 AM EDT OUTSIDE ECG Routine 11/21/2024 9:58 AM EDT documented in this encounter Results * Outside ECG Report Only (11/21/2024 10:25 AM EDT) [facility] Provider MD ECG ORDERABLES Final Res ult * Outside ECG Report Only (11/21/2024 10:23 AM EDT) [facility] Provider MD ECG ORDERABLES Final Res ult * Outside ECG Report Only (11/21/2024 10:23 AM EDT) [facility] Provider MD ECG ORDERABLES Final Res ult * Outside ECG Report Only (11/21/2024 10:19 AM EDT) [facility] Provider MD ECG ORDERABLES Final Res ult * Outside ECG Report Only (11/21/2024 10:19 AM EDT) [facility] Provider MD ECG ORDERABLES Final Res ult * Outside ECG Report Only (11/21/2024 10:18 AM EDT) [facility] Provider MD ECG ORDERABLES Final Res ult * Outside ECG Report Only (11/21/2024 10:18 AM EDT) [facility] Provider MD ECG ORDERABLES Final Res ult * Outside ECG Report Only (11/21/2024 10:17 AM EDT) us Historical Provider MD ECG ORDERABLES Final Res ult * Outside ECG Report Only (11/21/2024 10:16 AM EDT) Historical Provider MD ECG ORDERABLES Final Res ult * Outside ECG Report Only (11/21/2024 10:16 AM EDT) [facility] Provider MD ECG ORDERABLES Final Res ult * Outside ECG Report Only (11/21/2024 10:15 AM EDT) [facility] Provider MD ECG ORDERABLES Final Res ult * Outside ECG Report Only (11/21/2024 10:15 AM EDT) [facility] Provider MD ECG ORDERABLES Final Res ult * Outside ECG Report Only (11/21/2024 10:14 AM EDT) [facility] Provider MD ECG ORDERABLES Final Res ult * Outside ECG Report Only (11/21/2024 10:12 AM EDT) [facility] Provider MD ECG ORDERABLES Final Res ult * Outside ECG Report Only (11/21/2024 10:12 AM EDT) [facility] Provider MD ECG ORDERABLES Final Res ult * Outside ECG Report Only (11/21/2024 9:58 AM EDT) Result [facility] Provider MD ECG ORDERABLES Final Res ult documented in this encounter Visit Diagnoses Not on filedocumented in this encounter Additional Health Concerns Assessment Noted Time PHQ-9 Depression Total Score: 7 01/11/20 23 4:03 PM EST PHQ-2 Depression Total Score: 1 06/29/19 25 1:49 PM EDT documented as of this encounter Care Teams Instrument Mechanic Relationship Specialty Start Date End Date William Poole PA-C [address] [place] [email or web address] PCP - General Physician Packer Insulation 04/23/24 Sahil Kim MD [address] [place] [address] [email or web address] Insurance Assigned Provider 07/01/18 Manan Garcia MD [address] [place] [address] [email or web address] Insurance Assigned Provider 10/06/24 documented as of this encounter Additional Source Comments The information contained in this document represents components of the legal health record. It is not the complete legal health record.[facility]
--- OUTSIDE RECORDS SUMMARY | 2024-12-28 11:38 | XMS_ITS | Encounter Summary ---
Author Organization [facility] Address [address] [place] [address] [place] [address] Phone Care Team Providers Care Clinical Research Spec Name Role Phone Sahil Kim MD Unavailable William Poole PA-C Primary Care Provider [phone] Manan Garcia MD Unavailable Encounter Details Date Type Department Care Team (Late st Contact Info) Description 12/05/2024 Orders Only [facility] [place] [facility] [address] [facility] [address] Provider, MD Moshe [address] [place] [address] Social History Tobacco Use Types Packs/Day [...] Description 01/10/2025 7:30 AM EST Office Visit [facility] [address], [address] [place] [address] Yue Jesus PA-C [address] [place] [address] 03/04/2025 8:40 AM EST Office Visit [facility] [address] [place] [address] William Poole PA-C [address] [place] [address] [email or web address] documented as of this encounter Procedures Procedure Name Priority Date/Time Associated Diagnosis Comments OUTSIDE ECG Routine 12/03/2024 7:45 AM EDT OUTSIDE ECG Routine 12/03/2024 7:45 AM EDT OUTSIDE ECG Routine 12/03/2024 7:34 AM EDT documented in this encounter Results * Outside ECG Report Only (12/03/2024 7:45 AM EDT) Historical Provider MD ECG ORDERABLES Final Res ult * Outside ECG Report Only (12/03/2024 7:45 AM EDT) Historical Provider MD ECG ORDERABLES Final Res ult * Outside ECG Report Only (12/03/2024 7:34 AM EDT) us Historical Provider MD ECG ORDERABLES Final Res ult documented in this encounter Visit Diagnoses Not on filedocumented in this encounter Additional Health Concerns Assessment Noted Time PHQ-9 Depression Total Score: 7 01/11/20 23 4:03 PM EST PHQ-2 Depression Total Score: 1 06/29/19 25 1:49 PM EDT documented as of this encounter Care Teams Clinical Research Spec Relationship Specialty Start Date End Date William Poole PA-C [address] [place] [phone] [email or web address] PCP - General Physician Disease Control Inspector 04/23/24 Sahil Kim MD [address] [place] [address] [email or web address] Insurance Assigned Provider 07/01/18 Manan Garcia MD [address] [place] [address] [email or web address] Insurance Assigned Provider 10/06/24 documented as of this encounter Additional Source Comments The information contained in this document represents components of the legal health record. It is not the complete legal health record.[facility]
--- OUTSIDE RECORDS SUMMARY | 2024-12-28 11:38 | XMS_ITS | Encounter Summary ---
Author Organization [facility] Address [address] [place] [address] [place] [address] Phone Care Team Providers Care Web Operations Manager Name Role Phone Sahil Kim MD Unavailable [phone] William Poole PA-C Primary Care Provider [phone] Manan Garcia MD Unavailable Encounter Details Date Type Department Care Team (Late st Contact Info) Description 10/30/2024 Procedure Pass Non-Invasive Cardiology [address] [place], [place] [id number] Social History Tobacco Use Types Packs/Day Years [...] high school, GED, job training, learning the Tanzanian language, technical skills, or developing parenting skills)? [...] Description 01/10/2025 7:30 AM EST Office Visit [facility] [address] [place] [address] 3rd Floor, [address] [place] [address] Yue Jesus, PAChrisC [address] [place] [address] [email or web address] 03/04/2025 8:40 AM EST Office Visit [facility] [address] [place] [address] William Poole PA-C [address] [place], [place] [email or web address] documented as of this encounter Visit Diagnoses Not on filedocumented in this encounter Additional Health Concerns Assessment Noted Time PHQ-9 Depression Total Score: 7 01/11/20 23 4:03 PM EST PHQ-2 Depression Total Score: 1 06/29/19 25 1:49 PM EDT documented as of this encounter Care Teams Web Operations Manager Relationship Specialty Start Date End Date William Poole PA-C [address] [place] [address] [email or web address] PCP - General Physician Corporate Sales Trainer 04/23/24 Sahil Kim MD [address] [place] [address] Insurance Assigned Provider 07/01/18 Manan Garcia MD [address] [place] [phone] Insurance Assigned Provider 10/06/24 documented as of this encounter Additional Source Comments The information contained in this document represents components of the legal health record. It is not the complete legal health record.[facility]
--- OUTSIDE RECORDS SUMMARY | 2024-12-28 11:38 | XMS_ITS | Encounter Summary ---
Author Organization [facility] Address [address] [place] [address] [place] [address] Phone Care Team Providers Care Machine Straw Hat Presser Name Role Phone Sahil Kim MD Unavailable [phone] William Poole PA-C Primary Care Provider [phone] Manan Garcia MD Unavailable Encounter Details Date Type Department Care Team (Late st Contact Info) Description 11/30/2024 Orders Only [facility] Medicine [address] [place] [address] Provider, MD Moshe [address] [place] [address] Social History Tobacco Use Types Packs/Day [...] high school, GED, job training, learning the Ghanaian language, technical skills, or developing parenting skills)? [...] Upcoming Encounters Date Type Department Care Team (Candido st Contact Info) Description 01/10/2025 7:30 AM EST Office Visit [facility] [address], [address] [place] [address] Yue Jesus PA-C [address] [place] [address] 03/04/2025 8:40 AM EST Office Visit [facility] [address] [place] [address] William Poole PA-C [address] [place], [place] [email or web address] documented as of this encounter Procedures Procedure Name Priority Date/Time Associated Diagnosis Comments OUTSIDE MONITOR Routine 11/28/2024 4:57 PM EDT OUTSIDE MONITOR Routine 11/28/2024 4:48 PM EDT OUTSIDE MONITOR Routine 11/28/2024 3:42 PM EDT documented in this encounter Results * Outside Monitor Report Only (11/28/2024 4:57 PM EDT) [facility] Provider MD CV CARDIAC SERVICES ORDER STEPHEN Final Result * Outside Monitor Report Only (11/28/2024 4:48 PM EDT) Historical Provider MD CV CARDIAC SERVICES ORDER STEPHEN Final Result * Outside Monitor Report Only (11/28/2024 3:42 PM EDT) Historical Provider MD CV CARDIAC SERVICES ORDER STEPHEN Final Result documented in this encounter Visit Diagnoses Not on filedocumented in this encounter Additional Health Concerns Assessment Noted Time PHQ-9 Depression Total Score: 7 01/11/20 23 4:03 PM EST PHQ-2 Depression Total Score: 1 06/29/19 25 1:49 PM EDT documented as of this encounter Care Teams Machine Straw Hat Presser Relationship Specialty Start Date End Date William Poole PA-C [address] [place] [address] [email or web address] PCP - General Physician Learning And Development Manager 04/23/24 Sahil Kim MD [address] [place] [address] [email or web address] Insurance Assigned Provider 07/01/18 Manan Garcia MD [address] [place] [address] [email or web address] Insurance Assigned Provider 10/06/24 documented as of this encounter Additional Source Comments The information contained in this document represents components of the legal health record. It is not the complete legal health record.[facility]
--- OUTSIDE RECORDS SUMMARY | 2024-12-28 11:38 | XMS_ITS | Encounter Summary ---
Author Organization [facility] Address [address] [place] [address] [place] [address] Phone Care Team Providers Care Salt Manager Name Role Phone Sahil Kim MD Unavailable William Poole PA-C Primary Care Provider [phone] Manan Garcia MD Unavailable Encounter Details Date Type Department Care Team (Late st Contact Info) Description 12/13/2024 Orders Only [facility] [place] [facility] [address] [facility] [place] [address] Provider, MD Moshe [address] [place] [address] Social History Tobacco Use Types Packs/Day [...] high school, GED, job training, learning the Indonesian language, technical skills, or developing parenting skills)? [...] Description 01/10/2025 7:30 AM EST Office Visit [facility] [address], [address] [place] [address] Yue Jesus PA-C [address] [place] [address] 03/04/2025 8:40 AM EST Office Visit [facility] Internal Medicine [address] [place], [place] [phone] William Poole PA-C [address] [place], [place] documented as of this encounter Procedures Procedure Name Priority Date/Time Associated Diagnosis Comments OUTSIDE MONITOR Routine 12/12/2024 8:30 AM EDT documented in this encounter Results * Outside Monitor Report Only (12/12/2024 8:30 AM EDT) us Historical Provider CV CARDIAC SERVICES ORDER STEPHEN Final Result documented in this encounter Visit Diagnoses Not on filedocumented in this encounter Additional Health Concerns Assessment Noted Time PHQ-9 Depression Total Score: 7 01/11/20 23 4:03 PM EST PHQ-2 Depression Total Score: 1 06/29/19 25 1:49 PM EDT documented as of this encounter Care Teams Salt Manager Relationship Specialty Start Date End Date William Poole PA-C [address] [place], [place] PCP - General Physician Aesthetician 04/23/24 Sahil Kim MD [address] [place] [address] Insurance Assigned Provider 07/01/18 Manan Garcia MD [address] [place] [address] [email or web address] Insurance Assigned Provider 10/06/24 documented as of this encounter Additional Source Comments The information contained in this document represents components of the legal health record. It is not the complete legal health record.[facility]
--- OUTSIDE RECORDS SUMMARY | 2024-12-28 11:38 | XMS_ITS | Clinical Summary ---
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 Active acetaminophen (TYLENOL) 500 MG tablet Take 500 mg by mouth every 6 (six) hours as needed for pain (specific location in comments). Active omeprazole (PRILOSEC) 40 MG capsule Take 40 mg by mouth daily. Active propranoloL (INDERAL LA) 60 mg 24 hr capsule TAKE ONE CAPSULE (60 MG TOTAL) BY MOUTH EVERY DAY 90 capsule 3 04/18/19 25 Active CERTAVITE SENIOR 0.4 mg-300 mcg- 250 mcg tab TAKE ONE TABLET BY MOUTH ONCE DAILY 30 tablet 2 05/16/19 25 Active hydrocortisone (ANUSOL-HC) 2.5 % rectal creamIndications:H emorrhoids, external, thrombosed Apply perianal after bowel movement daily 28 g 3 09/11/19 25 Active atorvastatin (LIPITOR) 10 MG tabletIndications: Mixed hyperlipidemia TAKE ONE TABLET BY MOUTH EVERY DAY 30 tablet 11 11/20/19 25 Active diclofenac sodium (VOLTAREN) 75 MG EC tablet Take 1 tablet (75 mg total) by mouth 2 (two) times a day. 14 tablet 11/27/19 25 Active magnesium oxide (MAG-OX) 400 mg (241.3 mg elemental) tabletIndications: Spasm of eyelids TAKE ONE TABLET BY MOUTH NIGHTLY AT BEDTIME 90 tablet 3 12/01/19 25 Active magnesium oxide (MAG-OX) 400 mg (241.3 mg elemental) tabletIndications: Spasm of eyelids Take 1 tablet (400 mg total) by mouth nightly at bedtime. 90 tablet 09/11/19 25 025 Discontinued Active Problems Problem Noted Date Diagnosed Date Other chest pain 12/07/2024 Spider veins 11/26/2024 Assessment & Plan (11/26/2024 2:00 PM EDT): The collection of blood vessels that patient noted on the medial aspect of the right knee are noted to be spider veins. I did explain the pathophysiology of the spider veins with the patient. Patient acknowledges and understands. Left wrist pain 11/26/2024 Assessment & Plan (11/26/2024 2:01 PM EDT): Patient notes that he was seen by urgent care couple of weeks ago secondary to left wrist pain. At that time an x-ray was obtained which was noted to be negative and was told he had a sprain. He used a splint for a week which improved his symptoms however coming off the splint he then notices increasing pain. On physical exam he is noted to have positive phalen's sign on the left. At this could represent positive carpal tunnel syndrome. Therefore I have asked the patient to use a cock up splint. If this does not improve then the patient will be referred to Ortho for further evaluation Thumb pain, left 11/26/2024 Assessment & Plan (11/26/2024 2:02 PM EDT): Patient noted to have left thumb pain which he notes increased pain with movement. He is noted to have some swelling of his left thumb and tenderness to palpation over the CMC joint which I feel is most likely related to osteoarthritis. Patient mentions that he had been using Advil which has not been touching the pain. We discussed diclofenac 75 mg p.o. twice daily. We discussed side effects which can include nausea vomiting and possible GI bleeding. He was advised not to use ibuprofen products in conjunction with this medication. Palpitations 10/30/2024 Assessment & Plan (10/30/2024 9:00 AM EDT): Patient mentions that he has been experiencing palpitations while laying down and notes that these have been more sporadic over the course of the last couple of weeks. Patient states that they only last brief period and notes that deep breathing does help with the symptoms. He does drink a significant amount of caffeine and denies a lot of water intake. Differential diagnosis can include but not limited to cardiac arrhythmias versus Lyme versus iron deficiency anemia versus thyroid disease versus dehydration. -We will obtain Lyme titer, iron studies, TSH level -Patient advised to increase water intake and decrease caffeine intake -Holter monitor for 30 days -Echocardiogram Right foot pain 10/30/2024 Assessment & Plan (10/30/2024 9:01 AM EDT): Patient noted to have a episode of right medial heel pain that started after stretching during some of his exercises yesterday. Patient notes a burning sensation however denies any numbness. On physical exam patient is noted to have tenderness to palpation with noted burning sensation on the medial aspect of the right heel. Concerned that there could be a potential bone spur therefore I will order an x- ray for further evaluation if this is noted to be negative the next step would be ordering an EMG for further evaluation. Hemorrhoids, external, thrombosed 09/10/2024 Assessment & Plan (09/10/2024 5:08 PM EDT): Post bowel movements for the external hemorrhoid that is symptomatic apply Proctosol 2.5% daily after the bowel movement. To prevent the problem from recurrence or worsening, use 1 tablespoon of Metamucil with a tall glass of water a little bit before dinnertime. 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 Benign essential tremor 06/28/2024 Assessment & Plan (06/28/2024 5:40 PM EDT): Diagnosed back in 2016. Patient has been maintained on propranolol 60 mg daily which will be continued. Pain in scrotum 06/28/2024 Assessment & Plan (06/28/2024 5:44 PM EDT): Patient mentions it started about 2 years ago with numbness of his penis which then progressed into a tingling sensation in his right groin followed by now a tingling sensation in his scrotum. Patient has been followed by urology and most recently had done massage of the right groin and then a cortisone injection with noted follow-up coming up. Given his back surgery the concern is entrapment of his predental nerve which is a possibility given the location and recent surgery. On his last MRI it did not show any abnormality at L2 as he did discuss this with Dr. Low. Given his symptoms I would be willing to try a short course of Cipro to ensure that this is not prostatitis which could give him a similar picture. However I did explain to him that if this does not help then I would need to see the patient back in the office for full exam and then possible reimaging of his back to ensure that there is no entrapment of the pudendal nerve. Prediabetes 12/06/2023 Assessment & Plan (10/30/2024 8:59 AM EDT): Noted to have a history of prediabetes and will obtain a repeat hemoglobin A1c Assessment & Plan (12/06/2023 12:47 PM EDT): We will obtain A1c today given previous result within the prediabetic range. Discussed that I do not think that this is cause of neuropathy symptoms Hemoglobin A1c - External Date Value Ref Range Status 12/01/2022 5.9 % Final Degeneration of lumbar or lumbosacral interverte bral disc 08/22/2023 Assessment & Plan (11/09/2023 10:08 AM EDT): Nine weeks post surgery and notes that he is recovering well. Continue with physical therapy as scheduled. Assessment & Plan (08/22/2023 10:02 AM EDT): Referral was placed to Dr. Low and Dr. Ricardo in preparation for ALIF L5-S1. Surgery is scheduled for September 06 and he does have a preoperative appointment scheduled with both physicians. Primary osteoarthritis of both knees 2023 Assessment & Plan (2023 4:24 PM EST): Currently managable with conservative measures. No longer using meloxicam. Very rare ibuprofen. Chronic back pain 08/17/2021 Assessment & Plan (06/28/2024 5:39 PM EDT): Patient with chronic low back pain secondary to a recent fusion of L5-S1 back in August [address] Low. 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 Patient mentions that he has an upcoming follow-up with them scheduled on 07/03. He did undergo an MRI back 2-1/2 months ago which according to the patient looked good. He is continued on the gabapentin 300 mg 4 times a day. Of note he was on Mobic in the past however this was since discontinued. Assessment & Plan (03/24/2023 5:51 PM EST): Continue follow-up with [facility]. He is currently considering spinal surgery as he would like to return to a higher quality of life and is unsure if he will be able to achieve this without surgical intervention. Ideally he would like to decrease and discontinue use of gabapentin although notes that it is currently very helpful for the tingling pain he experiences. Assessment & Plan (08/17/2021 1:29 PM EDT): Multiple complaints from orthopedic standpoint All getting worse No recent trauma Check xrays Start ibuprofen: Risks/benefits of therapy explained, including MAT and other treatment options. Refer to PT History of right lateral epicondylitis 8 Assessment & Plan (05/15/2018 10:58 AM EDT): Continue OT exercises, good stretching. Mixed hyperlipidemia 03/25/2017 Assessment & Plan (10/30/2024 8:58 AM EDT): Patient mentions that he continues on the Lipitor 10 mg daily but has not gone for his lipid panel. We will obtain a lipid panel and continue the Lipitor 10 mg p.o. daily Assessment & Plan (06/28/2024 5:38 PM EDT): Patient with a history of hyperlipidemia on Lipitor 10 mg p.o. daily which will be continued Assessment & Plan (03/24/2023 5:49 PM EST): Continue atorvastatin as prescribed Assessment & Plan (07/21/2022 8:42 PM EDT): Check lipids Assessment & Plan (12/11/2019 9:30 AM EDT): Await labs Gastroesophageal reflux disease without esophagi tis 03/25/2017 Assessment & Plan (06/28/2024 5:40 PM EDT): Patient with a history of GERD on omeprazole 40 mg daily which will be continued. Assessment & Plan (07/21/2022 8:43 PM EDT): stable Assessment & Plan (12/11/2019 9:31 AM EDT): Stable on esomeprazole. Alternate rx prescribed. Assessment & Plan (05/15/2018 10:57 AM EDT): Continue omeprazole as prescribed. Assessment & Plan (06/16/2017 9:37 AM EDT): Discussed GERD at length. Reviewed that although sx of cough have improved and reflux is better managed on new diet, the endoscopy will be the most important indicator of any concerns/complications of dz. Pt demonstrates understanding. Please continue diet. Advised Advil only with food; reviewed potential impact on GI health. Continue amoxicillin as directed. Suggested drinking the majority of fluids outside of meals to eliminate pressure on LES. Reviewed alternate PPI options; pt agreeable to continue with omeprazole until consult in June. He will f/u if he feels that cough or worsened regurgitation are recurrent prior to consult. Resolved Problems Problem Noted Date Diagnosed Date Resolved Date Right sided sciatica 05/21/2022 025 Assessment & Plan (07/21/2022 8:43 PM EDT): [place] [facility] [place]. Will report new anal symptoms at visit next week Assessment & Plan (05/21/2022 9:25 AM EDT): He has some degeneration in the right hip and that appears to be not related to the Workmen's Comp. injury directly. We encouraged him to go back to physical therapy to learn exercises that will build up his resilience against further injury. Otherwise we will continue with pain management as planned. Back spasm 01/25/2022 06/28/2024 Assessment & Plan (01/25/2022 3:48 PM EST): This is upper back spasm not associated with the lower back spasm for which she is on Workmen's Comp. right now. Flexeril 5 mg p.o. twice daily to help with the spasms also heat 20 minutes on 10 minutes off using her example electric blanket, nonsteroidal and analgesics recommended. Ceiling dose on this Flexeril would be 10 mg, caution driving, caution with drowsiness. Inguinal abscess 11/11/2021 06/28/2024 Assessment & Plan (11/11/2021 4:44 PM EDT): After examining the remnant of the abscess [...] that is not the case. Pain in joint of left shoulder 08/17/2021 06/28/2024 Assessment & Plan (08/17/2021 1:30 PM EDT): Unclear etiology Check xray Ibuprofen To PT Cervicalgia 08/17/2021 06/28/2024 Assessment & Plan (08/17/2021 1:29 PM EDT): See above Post-void dribbling 07/13/2021 06/29/19 Assessment & Plan (07/13/2021 9:07 AM EDT): I have advised the patient to saw palmwilliano, for example super but beta prostate and then follow-up with me in a couple months if necessary. Acute bronchitis 04/22/2021 07/21/2022 Assessment & Plan (04/22/2021 2:23 PM EST): Strongly doubt that Covid is involved, this appears to be a acute bronchitis persisting with some inflammation within the trachea or bronchi causing the cough. Course of azithromycin Z-John prescribed this should hopefully bring the symptoms to an end. No need to retest for Covid today. No inhalers necessary at this time. Palpitations 12/10/2019 06/28/2024 Assessment & Plan (12/10/2019 8:16 AM EDT): Palpitations resolved. To f/u with sleep medicine for home sleep study. Routine general medical exam ination at a health care facility 05/15/2018 07/21/2022 Assessment & Plan (07/13/2021 9:09 AM EDT): Patient's exam positive for several nevi but nothing suspicious appearing. The patient referred for counseled to see Dr. Clifton across the street or in [place]. If he does not want to see a chiropractor we can get physical therapy for 6 weeks and then get an MRI of his lumbar spine with concern right sided sciatica in the setting of degenerative disc disease cervical spine status post neck surgery Dr. Low 2014 approximately. Labs today include CBC Chem-7's lipid profile AST ALT PSA and urinalysis whereby were looking for ongoing microhematuria and if that is the case we will get 1 more urinalysis and then refer to [facility] urology. Assessment & Plan (05/15/2018 10:58 AM EDT): Discussed general health maintenance including: Continue healthy, balanced diet consisting of whole foods and adequate fiber; minimize processed foods. Drink 6- 8 glasses of water daily. Physical activity for at least 30 minutes most days of the week. Discussed appropriate BMI. Recommend goal of 8 hours continuous sleep per night. Please wear seatbelts regularly. Please see pt education re: health maintenance and need for f/u if any concerns. Encouraged self-breast awareness. Encouraged regular monitoring of skin lesions; consider referral for derm eval with any concerns. Discussed daily sunscreen application and minimizing prolonged UV exposure. Will have yearly skin check with nail making machine tender. Immunizations reviewed. Discussed importance of regular dental and opthalmology f/u. Reviewed after hours coverage and contact information. Due for labs, to complete Dizziness 05/15/2018 06/28/2024 Assessment & Plan (05/15/2018 12:54 PM EDT): EKG stable as compared to 2015 study. I do think that his dizziness was episodic, he will continue to monitor this, stay well-hydrated, take his time when rising from bed in the morning. Tinnitus of both ears 05/15/20182024 Assessment & Plan (08/22/2023 10:03 AM EDT): Please to audiology for hearing evaluation given worsening of tinnitus. Also discussed potential referral to ENT in the future Assessment & Plan (07/13/2021 9:06 AM EDT): Right ear felt as if it was clogged however your canal was clear and no serum impaction. She might have eustachian tube dysfunction, counseled him on trial of Afrin nasal spray and, perhaps Flonase. If he still having issues, we can refer to the ears nose throat surgeons of [facility]. Assessment & Plan (12/11/2019 9:31 AM EDT): To f/u with audiology. Assessment & Plan (05/15/2018 10:59 AM EDT): To f/u with audiology for routine monitoring. Diverticulosis 05/14/2018 06/28/2024 Reactive depression 05/14/2018 06/29/19 25 Assessment & Plan (12/11/2019 9:31 AM EDT): Well-managed without counseling or medications. Assessment & Plan (05/15/2018 10:58 AM EDT): Continue sertraline as prescribed. Continue talk therapy. Internal hemorrhoids 05/14/2018 025 Encounters Date Type Department Care Team Description 12/25/2024 Telephone [facility] [address] [place] [address] Leni Galicia Care Coordination 12/21/2024 Telephone [facility] Internal Medicine [address] [facility] [place] [address] Shilpa Perdomo, ALLA Results 12/21/2024 Orders Only [facility] Internal Medicine [address] [facility] [place] [address] Moshe Jordan MD 12/20/2024 Orders Only [facility] Internal Medicine [address] [facility] [place] [address] Moshe Jordan MD 12/17/2024 10:46 AM EDT - 12/17/2024 11:59 PM EDT Hospital Encounter Non-Invasive Cardiology [address] [place] [address] Chano Melendez MD Discharge Disposition: Home or Self Care 12/14/2024 Orders Only [facility] Internal Medicine [address] [facility] [place] [address] Moshe Jordan MD 12/14/2024 Telephone [facility] Internal Medicine [address] [facility] [place] [address] William Poole PA-C Results 12/13/2024 11:04 AM EDT - 12/13/2024 11:59 PM EDT Hospital Encounter [facility] [address] [place] [address] William Poole PA-C Discharge Disposition: Home or Self Care 12/13/2024 Orders Only [facility] Internal Medicine [address] [place] [address] Moshe Jordan MD 12/12/2024 Orders Only [facility] Internal Medicine [address] [place] [address] Moshe Jordan MD 12/07/2024 12:00 PM EDT Office Visit [facility] [address] [facility] 3rd Floor, [address] [place] [address] Chano Melendez MD Mixed hyperlipidemia (Primary Dx); Palpitations; Other chest pain 12/07/2024 Orders Only [facility] Internal Medicine [address] [place] [address] Moshe Jordan MD 12/06/2024 Orders Only [facility] Internal Medicine [address] [place] [address] Moshe Jordan MD 12/05/2024 Orders Only [facility] Internal Medicine [address] [place] [address] Moshe Jordan MD 12/04/2024 Orders Only [facility] Internal Medicine [address] [place] [address] Moshe Jordan MD 12/03/2024 Orders Only [facility] [address] [place] [address] Moshe Jordan MD 11/30/2024 Orders Only [facility] [address] [place] [address] Moshe Jordan MD 11/30/2024 Refill [facility] Internal Medicine [address] [place] [address] Manan Garcia MD Medication Refill 11/29/2024 Telephone [facility] Internal [facility] [address] [facility] [place] [address] William Poole PA-C Authorization for [facility] 11/28/2024 Orders Only [facility] Internal [facility] [address] [place] [address] ProviderMoshe MD 11/27/2024 Orders Only [facility] Internal [facility] [address] [place] [address] ProviderMoshe MD 11/26/2024 1:20 PM EDT Office Visit [facility] [address] [facility] [place] [address] William Poole PA-C Spider veins (Primary Dx); Left wrist pain; Thumb pain, left 11/26/2024 Telephone [facility] Internal [facility] [address] [place] [address] William Poole PA-C hand splint 11/26/2024 Orders Only [facility] Internal [facility] [address] [facility] [place] [address] Moshe Jordan MD 11/23/2024 Orders Only [facility] Internal [facility] [address] [place] [address] ProviderMoshe MD 11/22/2024 Orders Only [facility] Internal [facility] [address] [place] [address] Moshe Jordan MD 11/21/2024 Telephone [facility] Internal [facility] [address] [place] [address] William Poole PA-C Results 11/21/2024 Orders Only [facility] Internal [facility] [address] [place] [address] Moshe Jordan MD 11/20/2024 Ancillary Orders [facility] Internal Medicine [address] [place] [address] William Poole PA-C Mixed hyperlipidemia (Primary Dx); Palpitations; Right foot pain; Prediabetes 11/20/2024 Orders Only [facility] Internal Medicine [address] [place] [address] Moshe Jordan MD 11/19/2024 Orders Only [facility] Internal Medicine [address] [place] [address] Moshe Jordan MD 11/16/2024 Telephone [facility] [address] [place] [address] William Poole PA-C Follow-up 11/16/2024 Orders Only [facility] Internal [facility] [address] [place] [address] Moshe Jordan MD 11/15/2024 2:30 PM EDT - 11/15/2024 11:59 PM EDT Hospital Encounter Non-Invasive Cardiology [address] [place], [place] [id number] William Poole PA-C Discharge Disposition: Home or Self Care 11/15/2024 [address] [facility] [address] [facility] [address] [place] [address] Luz Lara FNP Medication Refill 11/12/2024 Telephone [facility] Internal Medicine [address] [place] [address] William Poole PA-C Referral; Foot Pain (Left) 11/05/2024 Telephone [facility] Internal [facility] [address] [place] [address] Shilpa Perdomo, RN Results 11/02/2024 9:04 AM EDT - 11/02/2024 11:59 PM EDT Hospital Encounter [address] [place] [address] William Poole PA-C Discharge Disposition: Home or Self Care 10/30/2024 10:21 AM EDT - 10/30/2024 11:59 PM EDT Hospital Encounter [facility], X[facility]Ray - [facility] [address] [place] [address] William Poole PA-C Discharge Disposition: Home or Self Care 10/30/2024 8:20 AM EDT Office Visit [facility] Internal Medicine [address] [place] [address] William Poole PA-C Mixed hyperlipidemia (Primary Dx); Palpitations; Right foot pain; Prediabetes; Burnout of caregiver 10/30/2024 Procedure Pass [facility] [address] [place] [address] 10/30/2024 Procedure Pass Non-Invasive Cardiology [address] [place] [address] 10/30/2024 Telephone [facility] Internal Medicine [address] [place] [address] William Poole PA-C Results 10/05/2024 Telephone [facility] Internal Medicine [address] [place] [address] William Poole PA-C [facility] Referral from Last 3 Months Immunizations Immunization Administration Dates Next Due INFLUENZA, SPLIT VIRUS, TRIVALENT PF ,03/21/2024(Deferred: Other - Patient left prior to administration) Influenza Quadrivalent Prese rvative Free IM 12/10/2019,12/06/2017 Tdap 07/16/2022 Zoster recombinant 03/08/2022,11/07/2021 Family History Medical History Relation Comments Cancer Maternal Grandmother Hypertension Mother Thyroid cancer Sister Relation Status Comments Maternal Grandmother Mother Alive Sister Alive Social History Tobacco Use Types Packs/Day Years Used Date Smoking Tobacco: Never Passive Smoke Exposure: Current Smokeless Tobacco: Never Tobacco Cessation:Counseling Given: Not Answered [...] Orientation Straight 08/06/2021 4: 14 PM EDT Last Filed Vital Signs Vital Sign Reading Time Taken Comments Blood Pressure 122/80 12/17/2024 11:22 AM EDT Pulse 86 12/07/2024 11:57 AM EDT Temperature 36.2 C (97.2 F) 09/10/2024 4:26 PM EDT Respiratory Rate 23 11/26/2024 1:09 PM EDT Oxygen Saturation 97% 12/07/2024 11:57 AM EDT Inhaled Oxygen Concentration - - Weight 81.6 kg (180 lb) 12/07/2024 11:57 AM EDT Height 190.5 cm (6' 3 ) 12/07/2024 11:57 AM EDT Body Mass Index 22.5 12/07/2024 11:57 AM EDT Plan of Treatment Upcoming Encounters Date Type Department Care Team (Late st Contact Info) Description 01/10/2025 7:30 AM EST Office Visit [facility] [address] [place] [address] [address]rd Floor, [address] [place] [address] Yue Jesus PA-C [address] [place] [id number] 03/04/2025 8:40 AM EST Office Visit [facility] [address] [place] [address] William Poole PA-C [address] [place] [address] Health Maintenance Due Date Last Done Comments FIT TEST 2011 FOBT 2011 SIGMOIDOSCOPY 2011 VIRTUAL COLONOSCOPY 2011 PNEUMOCOCCAL VACCINES (50+ years) (1 of 1 - PCV) 2016 INFLUENZA VACCINE (#1) 2024 , 12/10/2019, 12/06/2017 COVID-19 VACCINE (4 - 2024- season) 2024 02/05/2021, 06/18/2020, 05/28/2020 DEPRESSION SCREENING 06/28/2025 06/28/2024, 01/11/20 23 COLONOSCOPY 09/10/2027 09/09/2017 COLOGUARD 12/01/2027 11/30/2024 COLORECTAL CANCER SCREENING 12/01/2027 LIPID PANEL 11/02/2029 11/02/2024, 06/29, 07/23/2022, Additional history exists Adult Td,Tdap Booster 07/16/2032 07/16/2022 RSV VACCINE (1 - 1-dose 75+ series) 2041 HEPATITIS C SCREENING Completed 07/14/2021, 022 HIV ONE-TIME SCREENING (18-65 YEARS) Completed 07/14/2021 ZOSTER VACCINES Completed 03/08/2022, 11/07/2021 SMOKING STATUS SCREENING (Once After 26 Yrs) Completed 12/07/2024 HEPATITIS A VACCINES Aged Out No long er eligible based on patient's age to complete this topic HIB VACCINES Aged Out No longer eligi ble based on patient's age to complete this topic MENINGOCOCCAL VACCINES (ACWY) Aged Out No longer eligible based on patient's age to complete this topic MENINGOCOCCAL VACCINES (B) Aged Out N o longer eligible based on patient's age to complete this topic Medical Devices Not on file Procedures Procedure Name Priority Date/Time Associated Diagnosis Comments OUTSIDE MONITOR Routine 12/21/2024 7:15 AM EDT MCT (MOBILE CARDIAC TELEMETRY) Routine 12/20/2024 3:14 PM EDT Palpitations STRESS TEST EXERCISE Routine 12/17/2024 11:22 AM EDT Mixed hyperlipidemia Palpitations Other chest pain OUTSIDE MONITOR Routine 12/15/2024 4:27 PM EDT OUTSIDE MONITOR Routine 12/14/2024 3:15 PM EDT TTE COMPREHENSIVE Routine 12/13/2024 12: 00 PM EDT Palpitations OUTSIDE MONITOR Routine 12/12/2024 8:30 AM EDT OUTSIDE MONITOR Routine 12/11/2024 7:15 AM EDT OUTSIDE MONITOR Routine 12/10/2024 11:55 AM EDT OUTSIDE ECG Routine 12/10/2024 11:55 AM EDT OUTSIDE MONITOR Routine 12/09/2024 8:16 AM EDT OUTSIDE ECG Routine 12/06/2024 12:02 PM EDT OUTSIDE ECG Routine 12/06/2024 12:02 PM EDT OUTSIDE ECG Routine 12/06/2024 11:23 AM EDT OUTSIDE ECG Routine 12/06/2024 11:19 AM EDT OUTSIDE ECG Routine 12/06/2024 11:11 AM EDT OUTSIDE ECG Routine 12/06/2024 11:10 AM EDT OUTSIDE ECG Routine 12/06/2024 10:59 AM EDT OUTSIDE ECG Routine 12/05/2024 11:48 AM EDT OUTSIDE ECG Routine 12/05/2024 11:33 AM EDT OUTSIDE ECG Routine 12/05/2024 11:31 AM EDT OUTSIDE ECG Routine 12/05/2024 11:15 AM EDT OUTSIDE ECG Routine 12/05/2024 11:08 AM EDT OUTSIDE MONITOR Routine 12/03/2024 4:51 PM EDT OUTSIDE ECG Routine 12/03/2024 4:40 PM EDT OUTSIDE MONITOR Routine 12/03/2024 4:39 PM EDT OUTSIDE ECG Routine 12/03/2024 4:28 PM EDT OUTSIDE ECG Routine 12/03/2024 4:28 PM EDT OUTSIDE ECG Routine 12/03/2024 4:25 PM EDT OUTSIDE MONITOR Routine 12/03/2024 4:19 PM EDT OUTSIDE MONITOR Routine 12/03/2024 4:07 PM EDT OUTSIDE MONITOR Routine 12/03/2024 4:07 PM EDT OUTSIDE MONITOR Routine 12/03/2024 4:05 PM EDT OUTSIDE MONITOR Routine 12/03/2024 4:03 PM EDT OUTSIDE ECG Routine 12/03/2024 4:00 PM EDT OUTSIDE ECG Routine 12/03/2024 3:25 PM EDT OUTSIDE MONITOR Routine 12/03/2024 2:21 PM EDT OUTSIDE ECG Routine 12/03/2024 7:45 AM EDT OUTSIDE ECG Routine 12/03/2024 7:45 AM EDT OUTSIDE ECG Routine 12/03/2024 7:34 AM EDT OUTSIDE MONITOR Routine 12/02/2024 3:45 PM EDT OUTSIDE MONITOR Routine 12/02/2024 3:45 PM EDT OUTSIDE MONITOR Routine 12/02/2024 3:44 PM EDT OUTSIDE MONITOR Routine 12/02/2024 3:19 PM EDT OUTSIDE MONITOR Routine 12/02/2024 3:05 PM EDT OUTSIDE MONITOR Routine 12/01/2024 4:33 PM EDT OUTSIDE MONITOR Routine 12/01/2024 3:37 PM EDT OUTSIDE MONITOR Routine 12/01/2024 3:26 PM EDT OUTSIDE MONITOR Routine 12/01/2024 3:26 PM EDT OUTSIDE MONITOR Routine 12/01/2024 3:08 PM EDT OUTSIDE MONITOR Routine 12/01/2024 3:08 PM EDT OUTSIDE MONITOR Routine 12/01/2024 3:01 PM EDT OUTSIDE MONITOR Routine 11/30/2024 2:53 PM EDT COLOGUARD (EX[employer] SCIENCES) Routine 11/30/2024 2:53 PM EDT OUTSIDE MONITOR Routine 11/30/2024 2:41 PM EDT OUTSIDE MONITOR Routine 11/30/2024 2:41 PM EDT OUTSIDE MONITOR Routine 11/30/2024 2:26 PM EDT OUTSIDE MONITOR Routine 11/30/2024 2:26 PM EDT OUTSIDE MONITOR Routine 11/30/2024 2:25 PM EDT OUTSIDE MONITOR Routine 11/30/2024 2:25 PM EDT OUTSIDE MONITOR Routine 11/30/2024 2:24 PM EDT OUTSIDE MONITOR Routine 11/30/2024 2:18 PM EDT OUTSIDE MONITOR Routine 11/30/2024 2:05 PM EDT OUTSIDE MONITOR Routine 11/30/2024 2:01 PM EDT OUTSIDE MONITOR Routine 11/30/2024 2:00 PM EDT OUTSIDE MONITOR Routine 11/30/2024 2:00 PM EDT OUTSIDE MONITOR Routine 11/30/2024 1:53 PM EDT OUTSIDE MONITOR Routine 11/30/2024 1:43 PM EDT OUTSIDE MONITOR Routine 11/30/2024 1:43 PM EDT OUTSIDE MONITOR Routine 11/30/2024 1:30 PM EDT OUTSIDE MONITOR Routine 11/30/2024 1:29 PM EDT OUTSIDE MONITOR Routine 11/29/2024 1:26 PM EDT OUTSIDE MONITOR Routine 11/29/2024 1:24 PM EDT OUTSIDE MONITOR Routine 11/29/2024 1:14 PM EDT OUTSIDE MONITOR Routine 11/29/2024 11:51 AM EDT OUTSIDE MONITOR Routine 11/29/2024 10:59 AM EDT OUTSIDE MONITOR Routine 11/29/2024 10:42 AM EDT OUTSIDE MONITOR Routine 11/28/2024 4:57 PM EDT OUTSIDE MONITOR Routine 11/28/2024 4:48 PM EDT OUTSIDE MONITOR Routine 11/28/2024 3:42 PM EDT OUTSIDE ECG Routine 11/27/2024 1:56 PM EDT [...] 1:45 PM EDT OUTSIDE ECG Routine 11/27/2024 10:50 AM EDT OUTSIDE ECG Routine 11/27/2024 10:49 AM EDT OUTSIDE ECG Routine 11/27/2024 8:16 AM EDT OUTSIDE MONITOR Routine 11/26/2024 4:26 PM EDT OUTSIDE MONITOR Routine 11/26/2024 4:25 PM EDT OUTSIDE ECG Routine 11/26/2024 3:12 PM EDT OUTSIDE ECG Routine 11/26/2024 2:58 PM EDT OUTSIDE ECG Routine 11/26/2024 2:45 PM EDT OUTSIDE ECG Routine 11/26/2024 11:00 AM EDT OUTSIDE ECG Routine 11/26/2024 10:58 AM EDT OUTSIDE ECG Routine 11/26/2024 10:43 AM EDT OUTSIDE ECG Routine 11/26/2024 8:22 [...] 11/26/2024 8:14 AM EDT OUTSIDE ECG Routine 11/25/2024 10:57 [...] ECG Routine 11/25/2024 9:44 AM EDT OUTSIDE MONITOR Routine 11/24/2024 4:25 PM EDT OUTSIDE ECG Routine 11/24/2024 2:11 PM [...] OUTSIDE ECG Routine 11/23/2024 9:22 AM EDT OUTSIDE ECG Routine 11/22/2024 8:31 AM EDT OUTSIDE ECG Routine 11/22/2024 8:31 AM EDT OUTSIDE ECG Routine 11/22/2024 8:31 AM EDT OUTSIDE ECG Routine 11/21/2024 5:24 PM EDT OUTSIDE ECG Routine 11/21/2024 12:25 PM EDT OUTSIDE ECG Routine 11/21/2024 10:25 AM EDT [...] OUTSIDE ECG Routine 11/21/2024 9:58 AM EDT OUTSIDE ECG Routine 11/20/2024 5:21 PM EDT OUTSIDE ECG Routine 11/20/2024 2:00 PM EDT OUTSIDE ECG Routine 11/20/2024 12:44 PM EDT OUTSIDE ECG Routine 11/20/2024 12:43 PM EDT OUTSIDE ECG Routine 11/20/2024 12:25 PM EDT OUTSIDE ECG Routine 11/20/2024 12:24 PM EDT OUTSIDE ECG Routine 11/20/2024 8:39 AM EDT OUTSIDE ECG Routine 11/18/2024 11:51 AM EDT OUTSIDE ECG Routine 11/17/2024 10:25 AM EDT OUTSIDE ECG Routine 11/17/2024 10:24 AM EDT OUTSIDE ECG Routine 11/16/2024 2:20 PM EDT OUTSIDE ECG Routine 11/16/2024 2:07 PM EDT OUTSIDE ECG Routine 11/16/2024 10:59 AM EDT OUTSIDE ECG Routine 11/16/2024 10:59 AM EDT OUTSIDE ECG Routine 11/16/2024 10:06 AM EDT OUTSIDE ECG Routine 11/16/2024 8:44 AM EDT OUTSIDE ECG Routine 11/16/2024 8:16 AM EDT LIPID PANEL Routine 11/02/2024 9:05 AM EDT Mixed hyperlipidemia COMPREHENSIVE METABOLIC PANEL Routine 11/02/2024 9:05 AM EDT Mixed hyperlipidemia TSH WITH REFLEX Routine 11/02/2024 9:05 AM EDT Palpitations IRON AND IRON BINDING CAPACITY Routine 11/02/2024 9:05 AM EDT Palpitations HEMOGLOBIN A1C Routine 11/02/2024 9:05 AM EDT Prediabetes LYME SCREEN WITH REFLEX TO WESTERN BLOT, BLOOD Routine 11/02/2024 9:05 AM EDT Palpitations XR FOOT 3 OR MORE VIEWS (RIGHT) Routine 10/30/2024 10:27 AM EDT Right foot pain HEPATITIS C ANTIBODY, QUALITATIVE Routine 07/14/2021 8:18 AM EDT Need for hepatitis C screening test HM COLONOSCOPY FOR RESULT ENTRY ONLY Routine 09/09/2017 from Last 3 Months or Most Recently Relevant to Health Maintenance Results * Outside Monitor Report Only (12/21/2024 7:15 AM EDT) Only the most recent of57 resultswithin the time period is included. Historical Provider CV CARDIAC SERVICES ORDER STEPHEN Final Result * MCT (Mobile Cardiac Telemetry) (12/20/2024 3:14 [...] no evidence of heart block or VT. William Poole PA-C CV CARDIAC SERVICES ORDERABLE S Final Result * STRESS TEST EXERCISE (12/17/2024 11:22 AM EDT) Max Predicted Heart Rate 162 bpm Anatomical Region Laterality Modality Heart Ultrasound Narrative 12/17/2024 12:52 PM EDT ECG REPORT- Pt exercised for 9:00 min on a TOSHIA protocol achieving 10.10 METS. Test terminated due to fatigue and bilateral leg cramping. Baseline resting HR was 62 bpm. Max heart rate achieved was 142 bpm (87% MPHR). 1. EKG - Baseline EKG showed sinus rhythm with RBBB, LAD and nonspecific ST-T wave abnormalities. During exercise, there were no EKG changes that met strict criteria for ischemia. 2. SYMPTOMS - No chest pain. 3. EXERCISE PHYSIOLOGY - Average functional capacity for age. Normal blood pressure response to exercise. 4. ARRHYTHMIAS - None noted. Conclusion - Normal stress test. There were no ischemic EKG changes or symptoms concerning for angina. See attached stress report for full details. Yue Jesus PA-C us Chano Melendez MD CV STRESS ORDERABLES Final Result * TTE COMPREHENSIVE (12/13/2024 12:00 PM EDT) Body Surface Area 2.10 m2 Height 191 cm Weight 82 kg Systolic BP 132 mmHg Diastolic BP 68 mmHg Left Atrium Dimension Anterior-Posterior 30 15 - 40 mm Aortic Valve Mean Gradient 2 mmHg Aortic Valve Time Velocity Integral 240.0 mm Aortic Valve Peak Velocity 1.1 m/s Aortic Valve Peak Gradient 5 mmHg Aortic Arch Diameter 31 mm Aortic Sinus Diameter 30 <40 mm Ascending Aorta Diameter 38 <36 mm Inferior Vena Cava Diameter 11 <21 mm Interventricular Septum Thickness 8 6 - 11 mm Left Ventricle Internal Diameter End Diastole 51 42 - 58 mm Left Ventricle Internal Diameter End Systole 28 <40 mm Left Ventricular Outflow Tract Diameter 21.0 mm LVOT VTI REST 202.0 mm Left Ventricular Outflow Tract Velocity 0.9 m/s Left Ventricular Outflow Tract Gradient at Rest 3 mmHg Left Ventricular Posterior Wall Thickness 10 6 - 11 mm Left Ventricle Ea Lateral Wave Speed 8.7 cm/s Left Ventricle Ea Septal Wave Speed 8.2 cm/s Ejection Fraction 56 50 - 75 Percent Mitral Valve Deceleration Time 246 ms Left Ventricle A Wave Speed 56.1 cm/s Left Ventricle E Wave Speed 59.6 cm/s Mitral Valve Mean Gradient 1 mmHg Mitral Valve Peak Gradient 2 mmHg Mitral Valve Area Continuity Equation 2.30 cm2 Pulmonary Valve Peak Velocity 0.8 m/s Pulmonary Valve Peak Gradient 3 mmHg Right Ventricle Basal Diameter 30 25 - 41 mm Raw LV EF% 70 % MV E/E' Tissue Velocity Lateral 6.85 Relative Wall Thickness 0.39 0.22 - 0.42 Left Ventricle indexed to BSA 77.9 g/m2 MV E/A ratio 1.1 MV E/e' septal 7.27 Left Ventricle E/e' Average 7.1 Aortic Valve Prosthetic Mean Gradient 2 mmHg Aortic Valve Sinus Index by BSA 14 mm/m2 Aorta Sinus Index by Height 1.57 cm/m Aorta Sinus CSA index by Height 3.70 cm2/m Ascending Aorta Index 18 mm/m2 Asc Aorta CSA Index by Height 5.93 cm2/m Mitral Valve Prosthetic Peak Gradient 2 mmHg Mitral Valve Prosthetic Mean Gradient 1 mmHg Pulmonic Valve Prosthetic Peak Gradient 3 mmHg MGB CV AV DIMENSIONLESS INDEX (PEAK) - STRESS ECHO DOBUT - REST 0.82 Ascending Aorta Index 18 mm Aortic Sinus Index 14 mm Ascending Aorta Diameter 18 mm Aortic Valve Sinus Index 1 14 20 - 32 mm AO ASC DIAM BSA INDEX 18.10 Echo E/Ea 7.27 Left Atrial Volume Index 15 16 - 34 mL/m2 GLS 17.6 % Right Ventricle TAPSE 21 >=17 mm Right Ventricle Pulse Doppler S Wave 11.0 >=9.5 cm/s Left Atrial Volume 31 mL Left Atrial Volume Index by Height 16 mL/m Aortic Valve Prosthetic Peak Gradient 5 mmHg Anatomical Region Laterality Modality Heart Ultrasound Narrative 12/13/2024 2:10 PM EDT Images from the original result were not included. Normal LV size with low normal LV systolic function EF 55%. Normal left atrial size. Normal diastolic function. Normal RV size and function. No significant valvular heart disease is seen. Compared to prior study from 2019 no change. Left Ventricle The left ventricle is normal in size. There is normal wall thickness. There is normal left ventricular systolic function. The LV ejection fraction is 56% (calculated via biplane measurement). Average global longitudinal strain (GLS) is -17.6% (normal), as measured on Paul software platform. There are no wall motion abnormalities. LV diastolic function appears within normal limits for age. The E/A ratio is 1.1. The e' septal wave velocity is 8.2 cm/s. The e' lateral wave velocity is 8.7 cm/s. The average E/e' ratio is 7.1. Right Ventricle The right ventricle is normal in size. There is normal right ventricular systolic function. TAPSE is 21 mm. RV S' wave is 11.0 cm/s. Left Atrium The left atrium is normal in size. The left atrial volume index by BSA is 15 mL/m2. Right Atrium The right atrium is normal in size. The IVC is normal in size with normal inspiratory collapse. Mitral Valve The mitral valve appears normal. There is no mitral stenosis. There is trace mitral regurgitation. Tricuspid Valve The tricuspid valve appears normal. There is no tricuspid stenosis. There is trace tricuspid regurgitation. RV systolic pressure could not be estimated due to insufficient TR Doppler envelope. Aortic Valve The aortic valve is tricuspid. There is no aortic stenosis. There is no aortic regurgitation. The visualized portions of the thoracic aorta appear normal in size. The aortic sinus diameter is 30 mm. The ascending aortic diameter is 38 mm. Pulmonic Valve The pulmonic valve appears normal. There is no pulmonic stenosis. There is trace pulmonic regurgitation. Pericardium There is no pericardial effusion. General Findings The image quality was good (2). Strain performed. Technique(s) used in the evaluation: Color flow Doppler and Spectral Doppler. The predominant rhythm during the study was sinus bradycardia. Comparison Findings Compared to prior TTE on 03/26/2019, IAS/IVS The interatrial septum appears normal. Result [facility] William Poole PA-C CV ECHO ORDERABLES Final Resu lt * Outside ECG Report Only (12/10/2024 11:55 AM EDT) Only the most recent of126 resultswithin the time period is included. Result [facility] Historical Provider ECG ORDERABLES Final Res ult * COLOGUARD (Etece) (11/30/2024 2:53 PM EDT) Stool (Per Rectum) Result [facility] Historical Provider BODY FLUIDS AND STOOLS OR DERABLES Final Result * Lyme Screen with Reflex to Immunoblot, Blood (11/02/2024 9:05 AM EDT) Pathologist [facility] [place] Lyme AB IgG Negative Negative [facility] Lyme AB IgM Negative Negative [facility] Blood 11/02/2024 9:05 AM EDT 11/02/2024 9:09 AM EDT Result [facility] William Poole PA-C LAB BLOOD ORDERABLES Final Re sult [facility] [address] [place] [address] * Comprehensive metabolic panel (11/02/2024 9:05 AM EDT) SODIUM 139 133 - 146 mmol/L [facility] POTASSIUM 4.9 3.3 - 5.1 mmol/L [facility] CHLORIDE 104 96 - 108 mmol/L [facility] CO2 27 21 - 35 mmol/L [facility] BUN 15 6 - 19 mg/dL [facility] CREATININE 0.80 0.5 - 1.5 mg/dL [facility] GLUCOSE 73 70 - 99 mg/dL [facility] ALBUMIN 4.4 3.9 - 4.8 g/dL [facility] TOTAL PROTEIN 6.9 6.5 - 8.0 g/dL [facility] CALCIUM 9.2 8.4 - 10.3 mg/dL [facility] ALKALINE PHOSPHATASE 59 39 - 117 U/L [facility] TOTAL BILIRUBIN 0.6 0.0 - 1.2 mg/dL [facility] AST 30 0 - 37 U/L [facility] ALT 22 0 - 40 U/L [facility] GLOBULIN 2.5 1 - 4.8 g/dL [facility] EGFR 103 >59 mL/min/1.7 3m2 [facility] Comment:Estimated glomerular filtration rate calculated using the CKD-EPI refit equation. ANION GAP 13 10 - 20 mmol/L [facility] Blood 11/02/2024 9:05 AM EDT 11/02/2024 9:09 AM EDT us William Poole PA-C LAB BLOOD ORDERABLES Final Re sult Performing Organization Address City/[facility] Co de Phone Number [address] [address] * TSH with reflex (11/02/2024 9:05 AM EDT) TSH 1.96 0.27 - 4.20 uIU/mL [facility] Blood 11/02/2024 9:05 AM EDT 11/02/2024 9:09 AM EDT us William Poole PA-C LAB BLOOD ORDERABLES Final Re sult [address] [address] * Iron and iron binding capacity (11/02/2024 9:05 AM EDT) IRON 124 45 - 160 ug/dL [facility] IRON BINDING CAPACITY 354 228 - 428 ug/dL [facility] TRANSFERRIN SATURAT. 35 20 - 55 % [facility] Blood 11/02/2024 9:05 AM EDT 11/02/2024 9:09 AM EDT William Poole PA-C LAB BLOOD ORDERABLES Final Re sult [address] [address] * Hemoglobin A1c (11/02/2024 9:05 AM EDT) Pathologist [facility] [place] HEMOGLOBIN A1C 5.7 4.3 - 5.8 % [facility] Blood 11/02/2024 9:05 AM EDT 11/02/2024 9:09 AM EDT William Poole PA-C LAB BLOOD ORDERABLES Final Re sult [address] [address] * (ABNORMAL) Lipid panel (11/02/2024 9:05 AM EDT) HDL 53 mg/dL [facility] Comment: Interpretation <40 mg/dL: Low HDL cholesterol (major risk factor for CHD) Greater than or equal to 60 mg/dL: High HDL cholesterol ( negative risk factor for CHD) HDL - cholesterol is affected by a number of factors, e.g. smoking, excerise, hormones, sex and age. CHOLESTEROL 226 0 - 240 mg/dL [facility] TRIGLYCERIDES 64 30 - 160 mg/dL [facility] LDL 160(H) 50 - 129 mg/dL [facility] Comment: LDL levels in terms of risk for coronary heart disease: <100 mg/dL: Optimal 100-129 mg/dL: Near or above optimal 130-159 mg/dL: Borderline high 160-189 mg/dL: High >190 mg/dL: Very High CARDIAC RISK RATIO 4.3 3.4 - 5.0 [facility] Blood 11/02/2024 9:05 AM EDT 11/02/2024 9:09 AM EDT William Poole PA-C LAB BLOOD ORDERABLES Final Re sult [address] [address] * XR FOOT 3 OR MORE VIEWS (RIGHT) (10/30/2024 10:27 AM EDT) Anatomical Region Laterality Modality Foot Right Computed Radiogr aphy 10/30/2024 12:5 0 PM EDT Impressions 10/30/2024 12:53 PM EDT No acute fracture or dislocation. Mild degenerative changes. Calcaneal enthesopathy. Narrative 10/30/2024 12:53 PM EDT XR FOOT 3 OR MORE VIEWS (RIGHT) Referring clinician's provided indication for this examination in Epic: Pain COMPARISON: None FINDINGS: No acute displaced fracture or dislocation. Mild degenerative changes in the interphalangeal joints. Large enthesophyte off the posterior calcaneus. Small spur off the plantar surface the calcaneus. Procedure Note Jacob Garcia MD - 10/30/2024 XR FOOT 3 OR MORE VIEWS (RIGHT) Referring clinician's provided indication for this examination in Epic:Pain COMPARISON: None FINDINGS: No acute displaced fracture or dislocation. Mild degenerative changes inthe interphalangeal joints. Large enthesophyte off the posteriorcalcaneus. Small spur off the plantar surface the calcaneus. IMPRESSION: No acute fracture or dislocation. Mild degenerative changes. Calcaneal enthesopathy. William Poole PA-C IMG XR LOWER EXTREMITY Final Result * Hepatitis C antibody, qualitative (07/14/2021 8:18 AM EDT) HCV NON-REACTIV E NON-REACTI VE [facility] Blood 07/14/2021 8:18 AM EDT 07/14/2021 8:20 AM EDT us Manan Garcia MD LAB BLOOD ORDERABLES Final Resul t [facility] [address] [place] [address] * COLONOSCOPY FOR RESULT ENTRY ONLY (09/09/2017) us Historical Provider HEALTH MAINTENANCE Final Result from Last 3 Months or Most Recently Relevant to Health Maintenance Insurance [facility] [place] [address] [address] [facility] Advance Directives For more information, please contact: [phone] (9AM - 5PM [facility], Tuesday-Tuesday) Documents on File Type Date Recorded Patient Teletype Or Varitype Keyboard Operator Expl anation Healthcare Proxy 12/12/2024 [facility] Health Care Proxy Form scan 12/12/2024 [facility] 12/12/2024 [facility] Form scan 12/12/2024 Care Teams Tilt Wall Supervisor Relationship Specialty Start Date End Date William Poole PA-C [address] [place] [address] [email or web address] PCP - General Physician Plier Worker 04/23/24 Sahil Kim MD [address] [place] [address] [email or web address] Insurance Assigned Provider 07/01/18 Manan Garcia MD [address] [place] [address] [email or web address] Insurance Assigned Provider 10/06/24 Additional Source Comments The information contained in this document represents components of the legal health record. It is not the complete legal health record.[facility]
--- OUTSIDE RECORDS SUMMARY | 2024-12-28 11:39 | XMS_ITS | Encounter Summary ---
Author Organization [facility] Address [address] [place] [address] [place] [id number] Phone Care Team Providers Care Stamping Machine Operator Name Role Phone Sahil Kim MD Unavailable [phone] William Poole PA-C Primary Care Provider [phone] Manan Garcia MD Unavailable Encounter Details Date Type Department Care Team (Late st Contact Info) Description 12/03/2024 Orders Only [facility] Medicine [address] [place] [address] Provider, MD Moshe [address] [place] [id number] Social History Tobacco Use Types Packs/Day [...] high school, GED, job training, learning the [place] language, technical skills, or developing parenting skills)? [...] Description 01/10/2025 7:30 AM EST Office Visit [facility] [address], [address] [place] [address] Yue Jesus PA-C [address] [place] [address] 03/04/2025 8:40 AM EST Office Visit [facility] [address] [place] [address] William Poole PA-C [address] [place] [address] documented as of this encounter Procedures Procedure Name Priority Date/Time Associated Diagnosis Comments OUTSIDE MONITOR Routine 12/03/2024 4:51 PM EDT OUTSIDE MONITOR Routine 12/03/2024 4:39 PM EDT OUTSIDE MONITOR Routine 12/03/2024 4:19 PM EDT OUTSIDE MONITOR Routine 12/03/2024 4:07 PM EDT OUTSIDE MONITOR Routine 12/03/2024 4:07 PM EDT OUTSIDE MONITOR Routine 12/03/2024 4:05 PM EDT OUTSIDE MONITOR Routine 12/03/2024 4:03 PM EDT OUTSIDE MONITOR Routine 12/03/2024 2:21 PM EDT OUTSIDE MONITOR Routine 12/02/2024 3:45 PM EDT OUTSIDE MONITOR Routine 12/02/2024 3:45 PM EDT OUTSIDE MONITOR Routine 12/02/2024 3:44 PM EDT OUTSIDE MONITOR Routine 12/02/2024 3:19 PM EDT OUTSIDE MONITOR Routine 12/02/2024 3:05 PM EDT OUTSIDE MONITOR Routine 12/01/2024 3:37 PM EDT OUTSIDE MONITOR Routine 12/01/2024 3:26 PM EDT OUTSIDE MONITOR Routine 12/01/2024 3:26 PM EDT OUTSIDE MONITOR Routine 12/01/2024 3:08 PM EDT OUTSIDE MONITOR Routine 12/01/2024 3:08 PM EDT OUTSIDE MONITOR Routine 12/01/2024 3:01 PM EDT OUTSIDE MONITOR Routine 11/30/2024 2:53 PM EDT [employer]) Routine 11/30/2024 2:53 PM EDT OUTSIDE [...] OUTSIDE MONITOR Routine 11/29/2024 10:42 AM EDT documented in this encounter Results * Outside Monitor Report Only (12/03/2024 4:51 PM EDT) [facility] Provider MD CV CARDIAC SERVICES ORDER STEPHEN Final Result * Outside Monitor Report Only (12/03/2024 4:39 PM EDT) [facility] Provider MD CV CARDIAC SERVICES ORDER STEPHEN Final Result * Outside Monitor Report Only (12/03/2024 4:19 PM EDT) [facility] Provider MD CV CARDIAC SERVICES ORDER STEPHEN Final Result * Outside Monitor Report Only (12/03/2024 4:07 PM EDT) Historical Provider MD CV CARDIAC SERVICES ORDER STEPHEN Final Result * Outside Monitor Report Only (12/03/2024 4:07 PM EDT) Historical Provider MD CV CARDIAC SERVICES ORDER STEPHEN Final Result * Outside Monitor Report Only (12/03/2024 4:05 PM EDT) Historical Provider MD CV CARDIAC SERVICES ORDER STEPHEN Final Result * Outside Monitor Report Only (12/03/2024 4:03 PM EDT) Historical Provider MD CV CARDIAC SERVICES ORDER STEPHEN Final Result * Outside Monitor Report Only (12/03/2024 2:21 PM EDT) Historical Provider MD CV CARDIAC SERVICES ORDER STEPHEN Final Result * Outside Monitor Report Only (12/02/2024 3:45 PM EDT) Historical Provider MD CV CARDIAC SERVICES ORDER STEPHEN Final Result * Outside Monitor Report Only (12/02/2024 3:45 PM EDT) Historical Provider MD CV CARDIAC SERVICES ORDER STEPHEN Final Result * Outside Monitor Report Only (12/02/2024 3:44 PM EDT) Historical Provider MD CV CARDIAC SERVICES ORDER STEPHEN Final Result * Outside Monitor Report Only (12/02/2024 3:19 PM EDT) Historical Provider MD CV CARDIAC SERVICES ORDER STEPHEN Final Result * Outside Monitor Report Only (12/02/2024 3:05 PM EDT) Historical Provider MD CV CARDIAC SERVICES ORDER STEPHEN Final Result * Outside Monitor Report Only (12/01/2024 3:37 PM EDT) [facility] Provider CV CARDIAC SERVICES ORDER STEPHEN Final Result * Outside Monitor Report Only (12/01/2024 3:26 PM EDT) [facility] Provider CV CARDIAC SERVICES ORDER STEPHEN Final Result * Outside Monitor Report Only (12/01/2024 3:26 PM EDT) [facility] Provider CV CARDIAC SERVICES ORDER STEPHEN Final Result * Outside Monitor Report Only (12/01/2024 3:08 PM EDT) [facility] Provider CV CARDIAC SERVICES ORDER STEPHEN Final Result * Outside Monitor Report Only (12/01/2024 3:08 PM EDT) [facility] Provider CV CARDIAC SERVICES ORDER STEPHEN Final Result * Outside Monitor Report Only (12/01/2024 3:01 PM EDT) Result [facility] Provider CV CARDIAC SERVICES ORDER STEPHEN Final Result * Outside Monitor Report Only (11/30/2024 2:53 PM EDT) [facility] Provider CV CARDIAC SERVICES ORDER STEPHEN Final Result * [employer]ARD ([employer]) (11/30/2024 2:53 PM EDT) Stool (Per Rectum) Result [facility] Provider BODY FLUIDS AND STOOLS OR DERABLES Final Result * Outside Monitor Report Only (11/30/2024 2:41 PM EDT) [facility] Provider CV CARDIAC SERVICES ORDER STEPHEN Final Result * Outside Monitor Report Only (11/30/2024 2:41 PM EDT) [facility] Provider MD CV CARDIAC SERVICES ORDER STEPHEN Final Result * Outside Monitor Report Only (11/30/2024 2:26 PM EDT) Historical Provider MD CV CARDIAC SERVICES ORDER STEPHEN Final Result * Outside Monitor Report Only (11/30/2024 2:26 PM EDT) Historical Provider MD CV CARDIAC SERVICES ORDER STEPHEN Final Result * Outside Monitor Report Only (11/30/2024 2:25 PM EDT) Historical Provider MD CV CARDIAC SERVICES ORDER STEPHEN Final Result * Outside Monitor Report Only (11/30/2024 2:25 PM EDT) Historical Provider MD CV CARDIAC SERVICES ORDER STEPHEN Final Result * Outside Monitor Report Only (11/30/2024 2:24 PM EDT) Historical Provider MD CV CARDIAC SERVICES ORDER STEPHEN Final Result * Outside Monitor Report Only (11/30/2024 2:18 PM EDT) Historical Provider MD CV CARDIAC SERVICES ORDER STEPHEN Final Result * Outside Monitor Report Only (11/30/2024 2:05 PM EDT) Historical Provider MD CV CARDIAC SERVICES ORDER STEPHEN Final Result * Outside Monitor Report Only (11/30/2024 2:01 PM EDT) Historical Provider MD CV CARDIAC SERVICES ORDER STEPHEN Final Result * Outside Monitor Report Only (11/30/2024 2:00 PM EDT) Historical Provider MD CV CARDIAC SERVICES ORDER STEPHEN Final Result * Outside Monitor Report Only (11/30/2024 2:00 PM EDT) Historical Provider MD CV CARDIAC SERVICES ORDER STEPHEN Final Result * Outside Monitor Report Only (11/30/2024 1:53 PM EDT) Historical Provider MD CV CARDIAC SERVICES ORDER STEPHEN Final Result * Outside Monitor Report Only (11/30/2024 1:43 PM EDT) Historical Provider MD CV CARDIAC SERVICES ORDER STEPHEN Final Result * Outside Monitor Report Only (11/30/2024 1:43 PM EDT) Historical Provider MD CV CARDIAC SERVICES ORDER STEPHEN Final Result * Outside Monitor Report Only (11/30/2024 1:30 PM EDT) Historical Provider MD CV CARDIAC SERVICES ORDER STEPHEN Final Result * Outside Monitor Report Only (11/30/2024 1:29 PM EDT) Historical Provider MD CV CARDIAC SERVICES ORDER STEPHEN Final Result * Outside Monitor Report Only (11/29/2024 1:26 PM EDT) Historical Provider MD CV CARDIAC SERVICES ORDER STEPHEN Final Result * Outside Monitor Report Only (11/29/2024 1:24 PM EDT) Historical Provider MD CV CARDIAC SERVICES ORDER STEPHEN Final Result * Outside Monitor Report Only (11/29/2024 1:14 PM EDT) Historical Provider MD CV CARDIAC SERVICES ORDER STEPHEN Final Result * Outside Monitor Report Only (11/29/2024 11:51 AM EDT) Historical Provider MD CV CARDIAC SERVICES ORDER STEPHEN Final Result * Outside Monitor Report Only (11/29/2024 10:59 AM EDT) Historical Provider MD CV CARDIAC SERVICES ORDER STEPHEN Final Result * Outside Monitor Report Only (11/29/2024 10:42 AM EDT) us Historical Provider CV CARDIAC SERVICES ORDER STEPHEN Final Result documented in this encounter Visit Diagnoses Not on filedocumented in this encounter Additional Health Concerns Assessment Noted Time PHQ-9 Depression Total Score: 7 01/11/20 23 4:03 PM EST PHQ-2 Depression Total Score: 1 06/29/19 25 1:49 PM EDT documented as of this encounter Care Teams Stamping Machine Operator Relationship Specialty Start Date End Date William Poole PA-C [address] [place] [address] PCP - General Physician Corporate Travel Manager 04/23/24 Sahil Kim MD [address] [place] [address] Insurance Assigned Provider 07/01/18 Manan Garcia MD [address] [place] [phone] Insurance Assigned Provider 10/06/24 documented as of this encounter Additional Source Comments The information contained in this document represents components of the legal health record. It is not the complete legal health record.[facility]
== END 2024-12-28 11:00 | disposition home or self-care (01) ==
LOC: HO.HUSH 10:18
PROVIDERS: PCP Registered Nurse; Visit Provider Urology
DX: N40.1 Benign prostatic hyperplasia with lower urinary tract symptoms (principal); N39.43 Post-void dribbling; R10.30 Lower abdominal pain, unspecified
CPT/HCPCS: 99213